=== PATIENT | male | born 1950 | race Caucasian/White ===

== ENCOUNTER 2020-03-04 09:17 | Outpatient (REF) | payer OTHER, SELFPAY | END 2020-03-04 09:18 | disposition home or self-care (01) | LOC: HO.LAB 09:17 | PROVIDERS: PCP Internal Medicine; Visit Provider Internal Medicine | DX: Z20.828 Contact with and (suspected) exposure to other viral communicable diseases (principal) | CPT/HCPCS: C9803; U0003 ==

== ENCOUNTER 2020-03-09 06:14 | Outpatient (REF) | payer OTHER, SELFPAY ==
[2020-03-09 12:13] LABS: Alanine Aminotransferase 20 U/L (0-40); Aspartate Amino Transferase 20 U/L (5-37); Cholesterol 218 mg/dL; HDL Cholesterol 41 mg/dL; LDL Cholesterol Calculated 121 mg/dl; Triglycerides 280 mg/dL
[2020-03-10 08:07] LABS: LDL Cholesterol Direct 143 mg/dL (<100)
== END 2020-03-09 06:15 | disposition home or self-care (01) ==
LOC: HO.HMGCLDS 06:14
PROVIDERS: PCP Internal Medicine; Visit Provider Internal Medicine
DX: E78.1 Pure hyperglyceridemia (principal)
CPT/HCPCS: 80061; 83721; 84450; 84460

== ENCOUNTER 2020-07-07 06:23 | Outpatient (REF) | payer OTHER, SELFPAY ==
[2020-07-07 11:56] LABS: Alanine Aminotransferase 22 U/L (0-40); Aspartate Amino Transferase 19 U/L (5-37); Cholesterol 201 mg/dL; HDL Cholesterol 46 mg/dL; LDL Cholesterol Calculated 98 mg/dl; Triglycerides 289 mg/dL
== END 2020-07-07 06:24 | disposition home or self-care (01) ==
LOC: HO.HMGCLDS 06:23
PROVIDERS: PCP Internal Medicine; Visit Provider Internal Medicine
DX: E78.2 Mixed hyperlipidemia (principal)
CPT/HCPCS: 36415; 80061; 84450; 84460

== ENCOUNTER 2020-09-29 11:39 | Emergency (ER) | payer OTHER, SELFPAY ==
--- NOTE | ~2020-09-29 | XR_ITS ---
EXAMINATION: XR CHEST CLINICAL INFORMATION: Fevers. Rule out pneumonia COMPARISON: CT chest 12/03/2008 TECHNIQUE: Frontal view of the chest was obtained. FINDINGS: The lungs are well-expanded and clear of acute pneumonic process. There is platelike atelectasis and right middle lobe and The heart size is mildly enlarged. Pulmonary vascularity is normal. No gross bony abnormality seen. XR/XR chest 1V IMPRESSION: Platelike atelectasis right middle lobe.
[2020-09-29 11:58] VITALS: BP 164/71; PULSE 86; RESP 24; TEMP 35.6; O2SAT 95; BMI 36.0
--- NOTE | 2020-09-29 15:21 | ECG_ITS ---
Test Reason : WEAKNESS Blood Pressure : / mmHG Vent. Rate : 078 BPM Atrial Rate : 078 BPM P-R Int : 136 ms QRS Dur : 082 ms QT Int : 370 ms P-R-T Axes : 062 036 048 degrees QTc Int : 421 ms Normal sinus rhythm Normal ECG When compared with ECG of 30-NOV-2006 17:04, No significant change was found Referred By: Clary Coronel Electronically Signed By:ERICA BARFIELD MD
--- NOTE | 2020-09-29 15:24 | ED_ITS ---
HPI - Weakness General Chief complaint: General Medical Stated complaint: Dehydration Time Seen by Provider: 09/29/20 15:20 Source: patient Mode of arrival: ambulatory Limitations: no limitations History of Present Illness HPI Narrative: 70 yo male with hx of recurrent kidney stones, COPD, HLD, bladder cancer with urostomy in place, solitary kidney comes in after being outside at a graduation all day on Monday that night developed body aches, nausea, vomiting, fever of 104, at this time fevers have stopped but he cannot tolerate PO and still has body aches worried he is dehydrated MD Complaint: generalized weakness (body aches) Onset (ago): day(s) (3) Duration: constant and progressively worsening Location: generalized Migration: none Severity: moderate Quality: aching Relieving factors: none Exacerbating factors: none Context: history of similar Associated symptoms: fever/chills, loss of appetite and myalgias Related Data Home Medications Medication Instructions Recorded Confirmed albuterol sulfate 90 mcg/actuation 2 puff INHALATION Q4-6H PRN 03/11/20 07/10/20 aerosol inhaler allopurinol 100 mg tablet 100 mg PO DAILY 03/11/20 07/10/20 budesonide-formoterol HFA 160 2 puff INHALATION BID 03/11/20 07/10/20 mcg-4.5 mcg/actuation aerosol inhaler cholecalciferol (vitamin D3) 50 50 mcg PO DAILY 03/11/20 07/10/20 mcg (2,000 unit) capsule famotidine 40 mg tablet 40 mg PO DAILY 03/11/20 07/10/20 flu vacc 2019-(65yr IM 03/11/20 07/10/20 up)-MF59C(PF) 60 mcg(15 mcgx4)/0.5 mL IM syringe tiotropium bromide 1.25 2 puff INHALATION DAILY 03/11/20 07/10/20 mcg/actuation mist for inhalation Previous Rx's Medication Instructions Recorded omeprazole 40 mg capsule,delayed 40 mg PO QAM PRN #30 cap 03/15/20 release carvedilol 6.25 mg tablet 6.25 mg PO BID 90 Days #180 tab 04/20/20 fenofibrate micronized 134 mg 134 mg PO DAILY #90 cap 05/27/20 capsule pitavastatin calcium 4 mg tablet 4 mg PO DAILY #90 tab 07/10/20 gabapentin 300 mg capsule See Rx Instructions PO .COMPLEX 08/18/20 #360 cap Allergies Allergy/AdvReac Type Severity Reaction Status Date / Time atorvastatin [Lipitor] AdvReac Unknown muscle pain Verified 07/10/20 08:41 pravastatin AdvReac Unknown muscle pain Verified 07/10/20 08:41 rosuvastatin [Crestor] AdvReac Unknown muscle pain Verified 07/10/20 08:41 simvastatin AdvReac Unknown muscle pain Verified 07/10/20 08:41 Review of Systems Review of Systems: Constitutional : No Weight loss, pos Fever, pos Chills, pos Fatigue, pos Malaise ENT/Mouth : No sore throat, No Rhinorrhea Eyes: No Eye Pain, No Swelling, No Redness Cardiovascular : No Chest Pain, No SOB, No Dyspnea on Exertion, No Orthopnea, No Edema, No Palpitations Respiratory : No Cough, No Sputum, No Wheezing Gastrointestinal : pos Nausea, pos Vomiting, No Diarrhea, No Constipation, No abdominal Pain, No Hematochezia, No Melena Genitourinary : No Dysuria, No Urinary Frequency, No Hematuria, Musculoskeletal : No joint pain, pos Myalgias, No Joint Swelling Skin : No Skin Lesions, No rash Neuro : No Weakness, No Numbness, No Dizziness, No Headache Psych : No Anxiety/Panic, No Depression Heme/Lymph: No Bruising, No Bleeding,No Lymphadenopathy Endocrine : No Polyuria, No Polydipsia All other systems reviewed and are negative [facility] Past Medical History Attestation statement: The following information was validated with the patient. Medical History Anxiety disorder Bladder cancer COPD (chronic obstructive pulmonary disease) Impaired fasting glucose Intolerance to BiPAP/CPAP Mixed dyslipidemia Obesity (BMI 30.0-34.9) Obstructive sleep apnea Plantar fasciitis Psoriasis Recurrent nephrolithiasis Statin intolerance Tubular adenoma of colon Surgical History History of hernia repair History of surgery on arm History of vagotomy Hx of cholecystectomy Family History Family History Father HTN (hypertension) Diabetes mellitus Dyslipidemia CAD (coronary artery disease) Aneurysm Mother CAD (coronary artery disease) Diabetes mellitus Dyslipidemia HTN (hypertension) COPD (chronic obstructive pulmonary disease) Brother History of heart attack Son No problems noted. Daughter No problems noted. Daughter No problems noted. Social History Social History (Updated 09/29/20 @ 15:47 by Clary Coronel DO) Alcohol intake: never Patient Tobacco Use Status: Never used Tobacco Use of substances other than those prescribed or required for medical reasons: No Advance Directives: No Advance Directives Information Provided: Yes Physical Exam Vital Signs: Vital Signs: Last Vital Signs Temp 96.1 F L 09/29/20 11:58 Pulse 86 09/29/20 11:58 Resp 24 H 09/29/20 11:58 BP 164/71 H 09/29/20 11:58 Pulse Ox 95 09/29/20 11:58 Body Mass Index 36.0 Appearance: Alert. Oriented X3. No acute distress. Eyes: Pupils equal, round and reactive to light. ENT: Pharynx normal. Neck: Normal inspection. Neck supple. CVS: Normal heart rate and rhythm. Pulses normal. Respiratory: No respiratory distress. Breath sounds normal. Abdomen: Soft and nontender. urostomy in place, clear yellow urine stoma is p/p/p Skin: Skin warm and dry. Normal skin color. Normal skin turgor. Extremities: No lower extremity edema. No calf ttp Neuro: Oriented X 3. No motor deficit. No sensory deficit. Course Course Course Narrative: signed out to Dr. Valencia pending workup MDM - Weakness MDM Narrative Medical decision making narrative: 70 yo male with hx of recurrent kidney stones, COPD, HLD, bladder cancer with urostomy in place, solitary kidney comes in after being outside at a graduation all day on Monday that night developed body aches, nausea, vomiting, fever of 104, at this time fevers have stopped but he cannot tolerate PO and still has body aches worried he is dehydrated at this time labs, UA, IVF x 2L , COVID test, nausea medications, CXR for pneumonia, dispo per results and findings, possible infection vs dehydration Lab Data Result diagrams: 09/29/20 15:49 09/29/20 15:49 Labs: Lab Results 09/29/20 09/29/20 09/29/20 Range/Units 15:49 15:49 15:49 WBC 5.0 (4.8-10.8) X10*3/uL RBC 4.53 L (4.60-5.80) X10*6/uL Hgb 13.5 L (14.0-18.0) g/dl Hct 41.6 L (42-52) % MCV 91.8 (80-98) fL MCH 29.8 (27.0-33.0) pg MCHC 32.5 (31.0-36.0) g/dl RDW 13.2 (11.0-16.0) % Plt Count 176 (160-400) X10*3/uL MPV 9.5 (9.4-12.4) fL Immature Gran % (Auto) 0.4 (0.0-0.4) % Neut % (Auto) 71.0 (45-73) % Lymph % (Auto) 15.5 L (20-40) % [place] % (Auto) 12.1 H (2-11) % Eos % (Auto) 0.8 (0-4) % Baso % (Auto) 0.2 (0-2) % Lymph # (Auto) 0.8 L (1.2-4.9) X10*3/uL [place] # (Auto) 0.6 (0.1-1.2) X10*3/uL Eos # (Auto) 0.0 (0.0-0.4) X10*3/uL Baso # (Auto) 0.0 (0.0-0.2) X10*3/uL Abs Immat Gran (auto) 0.02 (0.00-0.03) X10*3/uL Absolute Neuts (auto) 3.5 (2.0-8.3) X10*3/uL Absolute Nucleated RBC 0.000 (0.0-0.012) X10*3/uL Nucleated RBC % (auto) 0.0 (0.0-0.2) /100WBC Hold Blue Top SEE NOTE Magnesium Cancelled Total Bilirubin Cancelled Direct Bilirubin Cancelled AST Cancelled ALT Cancelled Alkaline Phosphatase Cancelled Total Protein Cancelled Albumin Cancelled Lipase Cancelled ECG Data Attestation: I personally reviewed and interpreted this ECG as follows: ECG interpretation date: 09/29/20 ECG interpretation time: 16:07 Interpretation: Rate: 78 Rhythm: NSR [place]: normal Normal P waves. Normal KARISSA. Normal QRS complex. ST T wave : normal no HELEN qTC: normal prior studies: no acute ischemia The study has been interpreted contemporaneously by me. . Discharge Plan Discharge Clinical Impression: Weakness Prescriptions: No Action omeprazole 40 mg capsule,delayed release(DR/EC) 40 mg PO QAM PRN (Reason: for heartburn) Qty: 30 RF: 6 carvedilol 6.25 mg tablet 6.25 mg PO BID 90 Days Qty: 180 RF: 0 fenofibrate micronized 134 mg capsule 134 mg PO DAILY Qty: 90 RF: 0 gabapentin 300 mg capsule See Rx Instructions PO .COMPLEX Qty: 360 RF: 4 allopurinol 100 mg tablet 100 mg PO DAILY RF: 0 famotidine 40 mg tablet 40 mg PO DAILY RF: 0 albuterol sulfate [ProAir HFA] 90 mcg/actuation HFA aerosol inhaler 2 puff inhalation Q4-6H PRNRF: 0 budesonide-formoterol [Symbicort] 160-4.5 mcg/actuation HFA aerosol inhaler 2 puff inhalation BID RF: 0 cholecalciferol (vitamin D3) 50 mcg (2,000 unit) capsule 50 mcg PO DAILY RF: 0 Spiriva Respimat 1.25 mcg/actuation mist 2 puff inhalation DAILY RF: 0 Fluad Quad 2020-21(65y up)(PF) 60 mcg (15 mcg x 4)/0.5 mL syringe IM RF: 0 Livalo 4 mg tablet 4 mg PO DAILY Qty: 90 RF: 3
[2020-09-29] MEDS: 0.9 % Sodium Chloride 1,000 ML 999 ML IVCONT ×2 (15:52→15:59)
[2020-09-29] MEDS: ondansetron HCL 4 MG/2 ML VIAL IVPUSH (15:58)
[2020-09-29 16:00] LABS: MANUAL DIFF FLAG NO
[2020-09-29 16:04] LABS: Basophils Percent Auto 0.2 % (0-2); Eosinophils Percent Auto 0.8 % (0-4); Hematocrit 41.6 % (42-52); Hemoglobin 13.5 g/dl (14.0-18.0); Imm Gran Abs Auto 0.02 X10*3/uL (0.00-0.03); Imm Gran Pct Auto 0.4 % (0.0-0.4); Lymphocytes Absolute Auto 0.8 X10*3/uL (1.2-4.9); Lymphocytes Percent Auto 15.5 % (20-40); Mean Corpuscular HGB Conc 32.5 g/dl (31.0-36.0); Mean Corpuscular Hemoglobin 29.8 pg (27.0-33.0); Mean Corpuscular Volume 91.8 fL (80-98); Mean Platelet Volume 9.5 fL (9.4-12.4); Monocytes Absolute Auto 0.6 X10*3/uL (0.1-1.2); Monocytes Percent Auto 12.1 % (2-11); Neutrophils Absolute Auto 3.5 X10*3/uL (2.0-8.3); Platelet Count 176 X10*3/uL (160-400); Red Blood Count 4.53 X10*6/uL (4.60-5.80); Red Cell Distribution Width 13.2 % (11.0-16.0)
[2020-09-29 16:25] LABS: COVID-19 Test Negative (Negative); IDNOW Serial# 08D9AD1C
[2020-09-29 16:32] LABS: Alanine Aminotransferase 27 U/L (0-40); Albumin Level 4.1 g/dL (3.5-5.0); Alkaline Phosphatase 65 U/L (39-117); Anion Gap 13 (12-20); Aspartate Amino Transferase 24 U/L (5-37); Bilirubin Direct 0.2 mg/dL (0.0-0.5); Bilirubin Total 0.7 mg/dL (0.0-1.0); Blood Urea Nitrogen 22 mg/dL (9-16); Calcium 9.1 mg/dL (8.4-10.2); Carbon Dioxide 26 mmol/L (22-29); Chloride 105 mmol/L (96-108); Creatinine Clr Calc Pharmacy 40.5; Estimated Glomerular Filt Rate 34; Glucose Random 104 mg/dL (60-115); Lipase 17 U/L (8-78); Magnesium 2.4 mg/dL (1.6-2.6); Potassium 4.6 mmol/L (3.3-5.1); Sodium 139 mmol/L (135-145); Total Protein 6.8 g/dL (6.5-8.0)
--- NOTE | 2020-09-29 16:48 | PC.NURSE ---
urostomy emptied for clean sample
[2020-09-29 17:52] LABS: Glucose Urine UA NEG (NEG); Leukocyte Esterase Urine 1+ (NEG); Nitrite Urine POS (NEG); Specific Gravity - Urine 1.015 (1.005-1.025); UACC Culture Trigger YES; Urine Blood 3+ (NEG); Urine Ketones NEG (NEG); Urine Protein 2+ MG/DL (NEG-TRACE)
[2020-09-29 18:09] LABS: Appearance Urine TURBID; Color Urine YELLOW; RBC Urine 30-49 /HPF (0)
[2020-09-29 18:10] LABS: Amorphous Sediment Urine 1+ /LPF; Bacteria Urine 1+ /LPF; WBC Clumps Urine NOTED
[2020-09-29] MEDS: cefTRIAXone sodium 1 GM in 0.9 % Sodium Chloride 50 ML IV (19:22)
== END 2020-09-29 20:03 | disposition home or self-care (01) ==
PROVIDERS: Emergency Medicine; Emergency Provider Internal Medicine
DX: R53.1 Weakness (principal); J44.9 Chronic obstructive pulmonary disease, unspecified; Z85.51 Personal history of malignant neoplasm of bladder; Z87.442 Personal history of urinary calculi; Z20.822 Contact with and (suspected) exposure to COVID-19
CPT/HCPCS: 36415; 71045; 80048; 80076; 81001; 81003; 82550; 83605; 83690; 83735; 85025; 87040; 87086; 87635; 93005; 96361; 96365; 96374; 99284; J0696; J2405

== ENCOUNTER 2021-01-13 06:00 | Outpatient (REF) | payer OTHER, SELFPAY ==
[2021-01-13 11:59] LABS: Alanine Aminotransferase 33 U/L (0-40); Aspartate Amino Transferase 25 U/L (5-37); Cholesterol 213 mg/dL; HDL Cholesterol 50 mg/dL; LDL Cholesterol Calculated 121 mg/dl; Triglycerides 210 mg/dL
== END 2021-01-13 06:01 | disposition home or self-care (01) ==
LOC: HO.HMGCLDS 06:00
PROVIDERS: PCP Internal Medicine; Visit Provider Internal Medicine
DX: E78.2 Mixed hyperlipidemia (principal)
CPT/HCPCS: 36415; 80061; 84450; 84460

== ENCOUNTER 2021-07-16 06:00 | Outpatient (REF) | payer MEDICARE, SELFPAY ==
[2021-07-16 11:51] LABS: Alanine Aminotransferase 26 U/L (0-40); Aspartate Amino Transferase 20 U/L (5-37); Cholesterol 195 mg/dL; HDL Cholesterol 38 mg/dL; LDL Cholesterol Calculated 122 mg/dl; Triglycerides 178 mg/dL
== END 2021-07-16 06:01 | disposition home or self-care (01) ==
LOC: HO.HMGCLDS 06:00
PROVIDERS: Visit Provider Internal Medicine
DX: E78.2 Mixed hyperlipidemia (principal)
CPT/HCPCS: 36415; 80061; 84450; 84460

== ENCOUNTER 2021-11-01 09:13 | Outpatient (REF) | payer MEDICARE, SELFPAY ==
--- NOTE | ~2021-11-01 | XR_ITS ---
EXAMINATION: XR FOOT, RIGHT CLINICAL INFORMATION: Contusion of the right foot COMPARISON: None TECHNIQUE: AP, lateral, and oblique views of the right foot. FINDINGS: There is a nondisplaced fracture base of fifth metatarsal. No additional bony abnormality seen. The soft tissues are normal. The ankle mortise and subtalar joints are normal. There is a small calcaneal heel spur. There is mild dorsal soft tissue swelling. XR/XR foot RT min 3V IMPRESSION: Nondisplaced fracture base of fifth metatarsal. No visible acute fracture or dislocation seen.
== END 2021-11-01 09:14 | disposition home or self-care (01) ==
LOC: HO.HMGCX 09:13
PROVIDERS: Visit Provider Internal Medicine
DX: S90.31XA Contusion of right foot, initial encounter (principal)
CPT/HCPCS: 73630

== ENCOUNTER → 2021-11-10 08:21 | Outpatient (BNVA) | payer MEDICARE, SELFPAY | PROVIDERS: PCP Internal Medicine; Visit Provider Physician Assistant | DX: S92.351A Displaced fracture of fifth metatarsal bone, right foot, initial encounter for closed fracture (principal) | CPT/HCPCS: 99202 ==

== ENCOUNTER 2021-12-24 07:18 | Outpatient (REF) | payer MEDICARE, SELFPAY ==
--- NOTE | ~2021-12-24 | XR_ITS ---
EXAMINATION: XR FOOT, RIGHT CLINICAL INFORMATION: Fracture COMPARISON: None TECHNIQUE: AP, lateral, and oblique views of the right foot. FINDINGS: There is a minimally displaced fracture of the base of the fifth metatarsal bone. Fracture line is still seen. There is minimal bony callus formation. Alignment appears unchanged from October 2021 exam. No other fracture is seen. There is arthritis at the first MTP joint. There is a plantar calcaneal spur. There is soft tissue swelling of the foot adjacent to the fracture. XR/XR foot RT min 3V IMPRESSION: No appreciable change in the minimally displaced fracture of the base of the fifth metatarsal bone from October 2021 exam.
== END 2021-12-24 07:19 | disposition home or self-care (01) ==
LOC: HO.HOSX 07:18
PROVIDERS: Visit Provider Physician Assistant
DX: M79.671 Pain in right foot (principal)
CPT/HCPCS: 73630

== ENCOUNTER 2022-02-09 07:06 | Outpatient (REF) | payer MEDICARE, SELFPAY ==
[2022-02-09 11:50] LABS: Alanine Aminotransferase 18 U/L (0-40); Aspartate Amino Transferase 20 U/L (5-37); Cholesterol 221 mg/dL; HDL Cholesterol 43 mg/dL; LDL Cholesterol Calculated 139 mg/dl; Triglycerides 195 mg/dL
== END 2022-02-09 07:07 | disposition home or self-care (01) ==
LOC: HO.HMGCLDS 07:06
PROVIDERS: PCP Internal Medicine; Visit Provider Internal Medicine
DX: E78.2 Mixed hyperlipidemia (principal)
CPT/HCPCS: 36415; 80061; 84450; 84460

== ENCOUNTER 2022-02-18 07:27 | Outpatient (REF) | payer MEDICARE, SELFPAY ==
--- NOTE | ~2022-02-18 | XR_ITS ---
EXAMINATION: XR FOOT, RIGHT CLINICAL INFORMATION: Pain in right foot COMPARISON: 12/24/2021 TECHNIQUE: AP, lateral, and oblique views of the right foot. FINDINGS: Fracture lines in the minimally displaced base of the fifth metatarsal fracture still visualized with some mild callus formation. Alignment is unchanged. Degenerative changes in the first MTP joint. There is a small plantar calcaneal spur. No joint effusion. XR/XR foot RT min 3V IMPRESSION: 1. Healing minimally displaced fracture at the base of the fifth metatarsal. 2. Plantar calcaneal spur.
== END 2022-02-18 07:28 | disposition home or self-care (01) ==
LOC: HO.HOSX 07:27
PROVIDERS: Visit Provider Physician Assistant
DX: S99.191D Other physeal fracture of right metatarsal, subsequent encounter for fracture with routine healing (principal)
CPT/HCPCS: 73630; 99212

== ENCOUNTER 2022-05-17 08:25 | Outpatient (REF) | payer MEDICARE, SELFPAY ==
--- NOTE | ~2022-05-17 | XR_ITS ---
EXAMINATION: XR CERVICAL SPINE CLINICAL INFORMATION: Neck pain. COMPARISON: None TECHNIQUE: 4 views of the cervical spine were obtained. FINDINGS: There is normal cervical lordosis and spinal alignment. Mild anterior osteophyte formation is seen from C4-5 to C6-7. The vertebral bodies are intact. The intervertebral disc spaces are unremarkable. The odontoid process is intact. The soft tissues are unremarkable. XR/XR cervical spine 3V IMPRESSION: Significant cervical spine abnormality.
[2022-05-17 11:52] LABS: Hematocrit 39.5 % (42.0-52.0); Hemoglobin 13.3 g/dl (14.0-18.0); Mean Corpuscular HGB Conc 33.7 g/dl (31.0-36.0); Mean Corpuscular Hemoglobin 30.5 pg (27.0-33.0); Mean Corpuscular Volume 90.6 fL (80.0-98.0); Mean Platelet Volume 10.4 fL (9.4-12.4); Platelet Count 228 X10*3/uL (160-400); Red Blood Count 4.36 X10*6/uL (4.60-5.80); Red Cell Distribution Width 12.7 % (11.0-16.0); White Blood Count 4.3 X10*3/uL (4.8-10.8)
[2022-05-17 12:29] LABS: Erythrocyte Sedimentation Rate 10 MM/HR (0-15)
[2022-05-17 12:35] LABS: Alanine Aminotransferase 18 U/L (0-40); Albumin Level 4.4 g/dL (3.5-5.0); Alkaline Phosphatase 60 U/L (39-117); Anion Gap 15 (12-20); Aspartate Amino Transferase 19 U/L (5-37); Bilirubin Total 0.4 mg/dL (0.0-1.0); Blood Urea Nitrogen 34 mg/dL (9-16); Calcium 9.2 mg/dL (8.4-10.2); Carbon Dioxide 24 mmol/L (22-29); Chloride 107 mmol/L (96-108); Estimated Glomerular Filt Rate 31; Glucose Random 116 mg/dL (60-115); Potassium 4.6 mmol/L (3.3-5.1); Sodium 141 mmol/L (135-145)
[2022-05-17 12:41] LABS: Bilirubin Direct < 0.2 mg/dL (0.0-0.5)
== END 2022-05-17 08:26 | disposition home or self-care (01) ==
LOC: HO.HMGCX 08:25
PROVIDERS: PCP Internal Medicine; Visit Provider Internal Medicine
DX: M54.2 Cervicalgia (principal); M31.6 Other giant cell arteritis
CPT/HCPCS: 36415; 72040; 80048; 80076; 85027; 85652

== ENCOUNTER 2022-09-20 06:01 | Outpatient (REF) | payer MEDICARE, SELFPAY ==
[2022-09-20 12:12] LABS: Alanine Aminotransferase 23 U/L (0-40); Aspartate Amino Transferase 16 U/L (5-37); Cholesterol 181 mg/dL; Glucose Fasting 106 mg/dL (60-99); HDL Cholesterol 40 mg/dL; LDL Cholesterol Calculated 103 mg/dl; Triglycerides 193 mg/dL
== END 2022-09-20 06:02 | disposition home or self-care (01) ==
LOC: HO.HMGCLDS 06:01
PROVIDERS: PCP Internal Medicine; Visit Provider Internal Medicine
DX: E78.2 Mixed hyperlipidemia (principal); R73.01 Impaired fasting glucose
CPT/HCPCS: 36415; 80061; 82947; 84450; 84460

== ENCOUNTER 2022-09-26 06:02 | Outpatient (REF) | payer MEDICARE, SELFPAY ==
[2022-09-26 11:29] LABS: Estimated Average Glucose 114 mg/dL; Hemoglobin A1c % 5.6 %
== END 2022-09-26 06:03 | disposition home or self-care (01) ==
LOC: HO.HMGCLDS 06:02
PROVIDERS: PCP Internal Medicine; Visit Provider Internal Medicine
DX: R73.01 Impaired fasting glucose (principal); Z78.9 Other specified health status
CPT/HCPCS: 36415; 83036

== ENCOUNTER 2022-09-27 08:35 | Outpatient (AMB) | payer MEDICARE, SELFPAY ==
--- NOTE | 2022-09-27 08:42 | AM.OFFVISMDC ---
Intake Vital Signs 09/27/22 08:43 Height 5 ft 7 in Weight 286 lb BMI 44.8 Intake Visit Reasons: ffup lipids, ifg after labs done Allergies atorvastatin [Lipitor] Adverse Reaction (Unknown, Verified 05/17/22 08:11) muscle pain pravastatin Adverse Reaction (Unknown, Verified 05/17/22 08:11) muscle pain rosuvastatin [Crestor] Adverse Reaction (Unknown, Verified 05/17/22 08:11) muscle pain simvastatin Adverse Reaction (Unknown, Verified 05/17/22 08:11) muscle pain aspirin Adverse Reaction (Verified 05/17/22 08:11) Abdominal Pain ibuprofen Adverse Reaction (Verified 05/17/22 08:11) Abdominal Pain Sulfa (Sulfonamide Antibiotics) Adverse Reaction (Verified 05/17/22 08:11) stomach ache PFSH Medical History (Updated 05/31/22 @ 03:01 by Stephanie Vega MD) Absent kidney Anemia in chronic kidney disease Anxiety disorder Bladder cancer COPD (chronic obstructive pulmonary disease) History of heartburn Hx of bladder cancer Impaired fasting glucose Intolerance to BiPAP/CPAP Mixed dyslipidemia Obesity (BMI 30.0-34.9) Obstructive sleep apnea Plantar fasciitis Polyneuropathy Psoriasis Recurrent nephrolithiasis Stage 3b chronic kidney disease Statin intolerance Tubular adenoma of colon Surgical History History of hernia repair History of surgery on arm History of urostomy History of vagotomy Hx of cholecystectomy Family History Father HTN (hypertension) Diabetes mellitus Dyslipidemia CAD (coronary artery disease) Aneurysm Mother CAD (coronary artery disease) Diabetes mellitus Dyslipidemia HTN (hypertension) COPD (chronic obstructive pulmonary disease) Brother History of heart attack Son No problems noted. Daughter No problems noted. Daughter No problems noted. Social History Housing: House Alcohol intake: never Patient Tobacco Use Status: Never used Tobacco e-Cigarette/Vaping Use: Never Used service: Yes Current occupational status: retired Cognitive needs: No Hearing needs: No Vision needs: Yes Coding Diagnoses
[2022-09-27 08:43] VITALS: BP 128/82; PULSE 56; O2SAT 96; BMI 44.8
--- NOTE | 2022-09-27 08:45 | A.OFFPC_ITS ---
<Statement entered by Stephanie Vega MD - 05/26/25 00:10> This note has been administratively?closed. Vital Signs 09/27/22 08:43 Height 5 ft 7 in Weight 286 lb BMI 44.8 BP 128/82 Blood Pressure Location Rt brachial Position Sitting Pulse 56 Pulse Source Pulse Oximeter Pulse Oximetry (%) 96 Oxygen Delivery Method Room Air Intake Visit Reasons: ffup lipids, ifg after labs done Intake Note: Patient here for follow up on labs. Allergies codeine Allergy (Verified 04/22/25 13:20) Unknown nitrofurantoin (From Macrobid) Allergy (Verified 04/22/25 13:20) Unknown atorvastatin (Lipitor) Adverse Reaction (Unknown, Verified 04/22/25 13:20) muscle pain pravastatin Adverse Reaction (Unknown, Verified 04/22/25 13:20) muscle pain rosuvastatin (Crestor) Adverse Reaction (Unknown, Verified 04/22/25 13:20) muscle pain simvastatin Adverse Reaction (Unknown, Verified 04/22/25 13:20) muscle pain aspirin Adverse Reaction (Verified 04/22/25 13:20) Abdominal Pain ibuprofen Adverse Reaction (Verified 04/22/25 13:20) Abdominal Pain Sulfa (Sulfonamide Antibiotics) Adverse Reaction (Verified 04/22/25 13:20) stomach ache Medication List - Last Reconciled 09/27/22 by Stephanie Vega MD albuterol sulfate 90 mcg/actuation (ProAir HFA) 2 puffs inhalation Q4-6H PRN allopurinol 100 mg PO DAILY budesonide-formoterol 160-4.5 mcg/actuation (Symbicort) 2 puffs inhalation BID carvedilol 12.5 mg PO BID cholecalciferol (vitamin D3) 50 mcg PO DAILY cranberry fruit concentrate (Cran-Max) 500 mg PO BID famotidine 40 mg PO DAILY fenofibrate micronized 134 mg PO DAILY gabapentin Take 2 capsules in a.m., 1 capsule at noon and 1 capsule in p.m. PO; omeprazole 40 mg PO DAILY pitavastatin calcium (Livalo) 4 mg PO DAILY tiotropium bromide 2.5 mcg/actuation (Spiriva Respimat) 2 puffs inhalation DAILY Tobacco use date assessed: 09/27/22 Fall risk assessment: No Falls in past year Last assessed Fall Risk: 09/27/22 HPI ffup lipids, ifg after labs done HPI Details 72-year-old male with dyslipidemia, and prediabetes, here today for follow-up. Has been compliant to his medications and has been trying to follow recommended diet, recent fasting labs showed hemoglobin A1c within normal limits, and fasting lipids showed LDL cholesterol at 103 mg/dL. Been trying to follow recommended diet, but has not been exercising regularly. Patient states that he has been feeling very tired lately, sleeps throughout the night and takes naps up to 4-5 hours every day. He has been diagnosed to have obstructive sleep apnea, intolerant of CPAP or BiPAP in the past, patient however resistant to get re-evaluated for his obstructive sleep apnea. Also complaining of pain in his right shoulder mainly on the anterior aspect, which has been present now for several months and progressively getting worse. Unable to lift right arm above shoulder level and unable to lift anything more than 5 lb with his right hand due to pain. Laboratory Tests 02/09/22 09/20/22 09/26/22 07:10 06:07 06:10 Fasting Glucose 106 H Estimat Average Gl ucose 114 Hemoglobin A1c % 5.6 AST 20 16 ALT 18 23 Triglycerides 195 193 Cholesterol 221 181 LDL Cholesterol, C alc 139 103 HDL Cholesterol 43 40 PFSH Medical History History of kidney stones Bowel obstruction Pulmonary fibrosis Elevated cholesterol Neuropathy HTN (hypertension) Chronic right shoulder pain Excessive sleepiness Fatigue History of heartburn Hx of bladder cancer Polyneuropathy Stage 3b chronic kidney disease Absent kidney Anemia in chronic kidney disease Obesity (BMI 30.0-34.9) Impaired fasting glucose COPD (chronic obstructive pulmonary disease) Plantar fasciitis Recurrent nephrolithiasis Intolerance to BiPAP/CPAP Obstructive sleep apnea Psoriasis Tubular adenoma of colon Anxiety disorder Statin intolerance Mixed dyslipidemia Surgical History Hx of cataract surgery History of nephrectomy, right Hx of shoulder surgery Hx of elbow surgery History of urostomy History of vagotomy History of hernia repair History of surgery on arm Hx of cholecystectomy Family History Father HTN (hypertension) Diabetes mellitus Dyslipidemia CAD (coronary artery disease) Aneurysm Mother CAD (coronary artery disease) Diabetes mellitus Dyslipidemia HTN (hypertension) COPD (chronic obstructive pulmonary disease) Brother History of heart attack Son No problems noted. Daughter No problems noted. Daughter No problems noted. Social History Housing: House Are you a primary anesthesiologist and critical care to a significant other at home: No Do you presently have visiting nurse or other home services: No Alcohol intake: never Patient Tobacco Use Status: Never used Tobacco e-Cigarette/Vaping Use: Never Used Second Hand Smoke Exposure: No service: Yes Current occupational status: retired Current occupation: right hand Cognitive needs: No Hearing needs: No Vision needs: Yes Questionnaire PHQ-9 Over the last 2 weeks, how often have you been bothered by any of the following problems? Depression Screening Interpretation: Negative Source: Developed by Drs. Joaquin Hansen, Lillian Cullen, Melquiades Gomez and colleagues, with an educational chela from [email or web address]. Thrive Questionnaire Date Thrive assessed: 07/20/21 ALVERTO-7 AMB Questionnaire ALVERTO-7 Date ALVERTO - 7 assessed: 07/20/21 Source: Developed by Drs. Joaquin Hansen, Lillian Cullen, Melquiades Gomez and colleagues, with an educational chela from [email or web address]. Review of Systems Const Reports as per HPI, Denies body aches, Denies chills, Denies fever(s), Denies headache(s) and Denies weakness Eyes Denies change in vision, Denies eye discharge and Denies itchy eyes ENT Denies dizziness, Denies headache(s), Denies nasal congestion, Denies nasal discharge and Denies sore throat Card Denies chest pain, Denies lightheadedness, Denies palpitations and Denies dyspnea Resp Denies chest congestion, Denies cough, Denies dyspnea and Denies wheezing GI Denies abdominal pain, Denies change in bowel habits and Denies heartburn Musc Details: Occasional cramping in toes at night Reports as per HPI Skin/Breast Denies lesions and Denies rash Neuro Denies dizziness, Denies headache(s) and Denies weakness Psych Reports no additional complaints Endo Denies polydipsia, Denies polyuria and Denies palpitations [place]/Lymph Denies easy bruising Aller/Immun Denies itchy eyes, Denies seasonal rhinorrhea and Denies wheezing Physical exam (Primary Care) Vital Signs: Last Vital Signs Pulse 56 09/27/22 08:43 BP 128/82 09/27/22 08:43 Pulse Ox 96 09/27/22 08:43 Oxygen Delivery Method Room Air 09/27/22 08:43 BMI result Body Mass Index 44.8 BMI Assessment/Plan discussion: High BMI High, discussed plan: lifestyle, weight reduction, dietary and physical activity Tobacco/Smoking Status: Tobacco use Status Tobacco use date assessed 09/27/22 09/27/22 08:47 Patient Tobacco Use Status Never used Tobacco 09/27/22 08:47 e-Cigarette/Vaping Use Never Used 09/27/22 08:47 Depression Screening Interpretation: Negative Thrive Assessment: Date of Thrive Assessment Date Thrive assessed 07/20/21 09/27/22 08:47 Const General: comfortable, no acute distress and alert Orientation/consciousness: patient oriented x3 HENMT Mouth: Normal oral and palatal mucosa present, oropharynx normal and moist mucous membranes Eyes General: appearance normal, both eyes and all related structures Neck Neck: Yes full ROM, Yes no lymphadenopathy and Yes supple Resp Effort & Inspection: normal respiratory effort and able to speak in complete sentences Auscultation: clear to auscultation bilaterally Cardio Rate: regular rate Rhythm: regular rhythm Heart sounds: S1 normal heart sound present and S2 normal heart sound present GI Palpation (GI): Soft to palpation, nontender and no masses Auscultation: normal bowel sounds Other: Urostomy bag in place, draining clear yellow urine General: Yes no CVA tenderness Back/Spine/Pelvis Back: no CVA tenderness and No back tenderness Skin General skin exam: no rashes or lesions noted Neuro General: patient oriented x3, gait normal, tone normal, moves all extremities, Normal light touch and pain sensation and no focal motor deficits Extrem Other: Unable to abduct right arm more than 90 degrees, and unable to cross right arm across chest due to pain and stiffness, tenderness on palpation over right AC joint, no gross bone deformity or joint swelling seen, positive impingement sign on right Psych Appearance: grossly normal and well kempt Mental Status: mental status grossly normal Speech and movement: Normal speech and movement present Affect: normal affect Attitude: cooperative Thought process: Normal thought process present Immunizations pneumoc 20-zia conj-dip cr(PF) 0.5 mL IM syringe Performing Provider: Stephanie Vega MD Per[place] [facility] Administered by: Stephen Carbajal CMA on 09/27/22 09:52 Dose Route Admin Location Dispensed Lot Number Expiration Date NDC Reconditioner 0.5 mL IM Left Deltoid 0.5 mL [id number] 12/24/23 8926-5927-14 [employer] Total Dispensed Waste 0.5 mL 0 % VIS Given Date VIS Provided VIS Publication Date 09/27/22 Single Vaccine 21 Eligibility Eligibility Date Funding Source Not VFC Eligible 09/27/22 Private Coding Level of Care Code Admin Sign Off/No Billing Diagnoses Fatigue R53.83 Obstructive sleep apnea G47.33 Chronic right shoulder pain M25.511; G89.29 Excessive sleepiness G47.10 Anemia in chronic kidney disease N18.9; D63.1 Obesity (BMI 30.0-34.9) E66.9 Impaired fasting glucose R73.01 Intolerance to BiPAP/CPAP Mixed dyslipidemia E78.2 Need for pneumococcal 20-valent conjugate vaccination Z23
== END 2022-09-27 10:28 | disposition home or self-care (01) ==
LOC: HO.HMGC 08:35
PROVIDERS: PCP Internal Medicine; Visit Provider Internal Medicine
DX: R53.83 Other fatigue (principal); G47.33 Obstructive sleep apnea (adult) (pediatric); M25.511 Pain in right shoulder; G89.29 Other chronic pain; G47.10 Hypersomnia, unspecified; N18.9 Chronic kidney disease, unspecified; D63.1 Anemia in chronic kidney disease; E66.9 Obesity, unspecified; R73.01 Impaired fasting glucose; E78.2 Mixed hyperlipidemia; Z23 Encounter for immunization
CPT/HCPCS: 99499

== ENCOUNTER 2022-09-27 09:51 | Outpatient (REF) | payer MEDICARE, SELFPAY ==
--- NOTE | ~2022-09-27 | XR_ITS ---
EXAMINATION: XR SHOULDER, RIGHT CLINICAL INFORMATION: Reason for Exam M25.511 - Pain in right shoulder COMPARISON: None TECHNIQUE: Four views of the shoulder. FINDINGS: No acute fracture or dislocation. Mild degenerative changes of the shoulder with subchondral cystic change in the humeral head. Soft tissues are unremarkable. XR/XR shoulder RT min 2V IMPRESSION: * Mild degenerative changes of the shoulder.
[2022-09-27 11:14] LABS: MANUAL DIFF FLAG NO
[2022-09-27 11:37] LABS: Basophils Absolute Auto 0.1 X10*3/uL (0.0-0.2); Basophils Percent Auto 1.1 % (0-2); Eosinophils Absolute Auto 0.3 X10*3/uL (0.0-0.4); Eosinophils Percent Auto 7.3 % (0-4); Hematocrit 39.4 % (42.0-52.0); Hemoglobin 12.7 g/dl (14.0-18.0); Imm Gran Abs Auto 0.02 X10*3/uL (0.00-0.03); Imm Gran Pct Auto 0.4 % (0.0-0.4); Lymphocytes Absolute Auto 1.4 X10*3/uL (1.2-4.9); Lymphocytes Percent Auto 31.4 % (20-40); Mean Corpuscular HGB Conc 32.2 g/dl (31.0-36.0); Mean Corpuscular Hemoglobin 30.2 pg (27.0-33.0); Mean Corpuscular Volume 93.6 fL (80.0-98.0); Mean Platelet Volume 10.2 fL (9.4-12.4); Monocytes Absolute Auto 0.4 X10*3/uL (0.1-1.2); Monocytes Percent Auto 7.7 % (2-11); Neutrophils Absolute Auto 2.4 x10*3/uL (2.0-8.3); Neutrophils Percent Auto 52.1 % (45-73); Platelet Count 302 X10*3/uL (160-400); Red Blood Count 4.21 X10*6/uL (4.60-5.80); Red Cell Distribution Width 12.5 % (11.0-16.0); White Blood Count 4.5 X10*3/uL (4.8-10.8)
[2022-09-27 11:59] LABS: Iron 86 mcg/dL (45-160); Percent Iron Saturation 25 % (15-50); Total Iron Binding Capacity 344 mcg/dL (228-428); Unsaturated Iron Binding 258 ug/dL
[2022-09-27 12:30] LABS: Folate 6.2 ng/mL (> or = 4.0); TSH reflex Free T4 1.04 uIU/mL (0.32-4.0); Vitamin B12 416 pg/mL (200-900)
== END 2022-09-27 09:52 | disposition home or self-care (01) ==
LOC: HO.HMGCX 09:51
PROVIDERS: PCP Internal Medicine; Visit Provider Internal Medicine
DX: M25.511 Pain in right shoulder (principal); G47.10 Hypersomnia, unspecified; G47.33 Obstructive sleep apnea (adult) (pediatric); R53.83 Other fatigue; G89.29 Other chronic pain
CPT/HCPCS: 36415; 73030; 82607; 82746; 83540; 84443; 85025

== ENCOUNTER 2022-11-07 08:17 | Outpatient (AMB) | payer MEDICARE, SELFPAY ==
[2022-11-07 08:25] VITALS: BMI 44.9
--- NOTE | 2022-11-07 08:25 | A.OFFVIS_ITS ---
Intake Vital Signs 11/07/22 08:25 Height 5 ft 7 in Weight 287 lb BMI 44.9 Intake Visit Reasons: Newprob-Pain in right shoulder Intake Note: Dajuan 72 yr old male who is right hand hand dominant, presents today for a new problem visit with complaints of his right shoulder. States his pain started about 3months ago with no injury he can recall. Currently his pain has worsen and is limited with his ROM. Describes pain as a sharp radiating pain down his arm and at times make his hand shake due to pain. Patient states his pain increases after prolong use of shoulder. Hx of right shoulder sx with Dr. Martel about 20 yrs ago. Allergies atorvastatin [Lipitor] Adverse Reaction (Unknown, Verified 11/07/22 08:33) muscle pain pravastatin Adverse Reaction (Unknown, Verified 11/07/22 08:33) muscle pain rosuvastatin [Crestor] Adverse Reaction (Unknown, Verified 11/07/22 08:33) muscle pain simvastatin Adverse Reaction (Unknown, Verified 11/07/22 08:33) muscle pain aspirin Adverse Reaction (Verified 11/07/22 08:33) Abdominal Pain ibuprofen Adverse Reaction (Verified 11/07/22 08:33) Abdominal Pain Sulfa (Sulfonamide Antibiotics) Adverse Reaction (Verified 11/07/22 08:33) stomach ache Medication List - Last Reconciled 11/07/22 by Cortez Valenzuela PA-C albuterol sulfate 90 mcg/actuation (ProAir HFA) 2 puffs inhalation Q4-6H PRN allopurinol 100 mg PO DAILY budesonide-formoterol 160-4.5 mcg/actuation (Symbicort) 2 puffs inhalation BID carvedilol 12.5 mg PO BID cholecalciferol (vitamin D3) 50 mcg PO DAILY cranberry fruit concentrate (Cran-Max) 500 mg PO BID famotidine 40 mg PO DAILY fenofibrate micronized 134 mg PO DAILY gabapentin Take 2 capsules in a.m., 1 capsule at noon and 1 capsule in p.m. PO; omeprazole 40 mg PO DAILY pitavastatin calcium (Livalo) 4 mg PO DAILY tiotropium bromide 2.5 mcg/actuation (Spiriva Respimat) 2 puffs inhalation DAILY HPI Newprob-Pain in right shoulder HPI Details 72-year-old right hand dominant male who presents to the office today for evaluation of right shoulder pain for about 3 months. He states he has worsening sharp pain and limited ROM in his shoulder which radiates down to his arm. His pain is aggravated with sleeping, raising his arm and prolonged use of the shoulder. He also c/o occasional tremors in his hand due to the pain. He has not had any injury in the past. He does not have a history of diabetes. He has a history of right shoulder sx with Dr. Martel, about 20 years ago. [facility] Medical History Absent kidney Anemia in chronic kidney disease Anxiety disorder Bladder cancer Chronic right shoulder pain COPD (chronic obstructive pulmonary disease) Excessive sleepiness Fatigue History of heartburn Hx of bladder cancer Impaired fasting glucose Intolerance to BiPAP/CPAP Mixed dyslipidemia Obesity (BMI 30.0-34.9) Obstructive sleep apnea Plantar fasciitis Polyneuropathy Psoriasis Recurrent nephrolithiasis Stage 3b chronic kidney disease Statin intolerance Tubular adenoma of colon Surgical History History of hernia repair History of surgery on arm History of urostomy History of vagotomy Hx of cholecystectomy Family History Father HTN (hypertension) Diabetes mellitus Dyslipidemia CAD (coronary artery disease) Aneurysm Mother CAD (coronary artery disease) Diabetes mellitus Dyslipidemia HTN (hypertension) COPD (chronic obstructive pulmonary disease) Brother History of heart attack Son No problems noted. Daughter No problems noted. Daughter No problems noted. Social History (Updated 11/07/22 @ 08:33 by ROWAN Dale) Housing: House Alcohol intake: never Patient Tobacco Use Status: Never used Tobacco e-Cigarette/Vaping Use: Never Used service: Yes Current occupational status: retired Current occupation: right hand Cognitive needs: No Hearing needs: No Vision needs: Yes Review of Systems Const All systems reviewed & are unremarkable except as noted in HPI and below Physical Exam Vital Signs: BMI result Body Mass Index 44.9 Extrem Other: Right shoulder normal to inspection. Tenderness over the bicipital groove and along the deltoid region of the shoulder. Forward flexion to 80, external rotation to 90, internal rotation to S1. 5/5 RTC strength. Positive Cavazos. NVI. Office Procedures Joint Injection/Drain Joint Injection/Drain Primary Site: right shoulder Prep: site was prepped using aseptic technique, ethochloride spray was applied and injection warnings given Injected: 80 mg of, DepoMedrol, with 8 mL of, 1% plain lidocaine and in the subcromial space Approach Used: posterolateral Procedure: The patient tolerated the procedure well and there was some relief with the local anesthesia Coding - Glenohumeral/Tronchanteric Bursa/Intraarticular Procedure code (CPT) selection complete Results Reviewed Results Reviewed: 11/07/22 08:54 Lidocaine HCl 2 % MPF [Xylocaine 2 % MPF] 5 ml .ROUTE .STK-MED ONE methylPREDNISolone acetate [DEPO-MedroL] 80 mg .ROUTE .STK-MED ONE xrays of the right shoulder obtained on 09/27/22 show mild oa, no acute fracture or dislocations. Assessment & Plan Assessment & Plan (1) Right rotator cuff tendinitis: Code(s): M75.81 - Other shoulder lesions, right shoulder (2) Acromioclavicular joint arthritis: Code(s): M19.019 - Primary osteoarthritis, unspecified shoulder Plan We discussed options today which include steroid injection. They did consent to move forward with the right shoulder injection, which was tolerated well. I also gave him a handout of home exercises in the office today. I recommended rest, ice and elevation for discomfort. If symptoms persist or worsens over the next 6-8 weeks, patient will contact the office, otherwise follow-up as needed. Patient Instructions: Scribed for Cortez Valenzuela PA-C, by Octavio Sandhu claim review medical director, on 11/07/2022 at 8:30 AM CHAVO. Cortez Mccabe PA-C, have personally reviewed and agree with t he information entered by the scribe. Coding Level of Care Code Est Pt Level 3 (78782) Diagnoses Right rotator cuff tendinitis M75.81 Acromioclavicular joint arthritis M19.019 CPT Codes Coding - Joint 7: - Glenohumeral/Tronchanteric Bursa/Intraarticular ([id number])
== END 2022-11-07 09:11 | disposition home or self-care (01) ==
PROVIDERS: PCP Internal Medicine; Visit Provider Physician Assistant
DX: M75.81 Other shoulder lesions, right shoulder (principal); M19.011 Primary osteoarthritis, right shoulder
CPT/HCPCS: 20610; 99213

== ENCOUNTER → 2022-11-07 08:17 | Outpatient (BNVA) | payer MEDICARE, SELFPAY | PROVIDERS: PCP Internal Medicine; Visit Provider Physician Assistant | DX: M75.81 Other shoulder lesions, right shoulder (principal); M19.011 Primary osteoarthritis, right shoulder | CPT/HCPCS: 20610; 99212; J1040 ==

== ENCOUNTER 2023-02-21 06:03 | Outpatient (REF) | payer MEDICARE, SELFPAY ==
[2023-02-21 11:33] LABS: Glucose Fasting 104 mg/dL (60-99)
== END 2023-02-21 06:04 | disposition home or self-care (01) ==
LOC: HO.HMGCLDS 06:03
PROVIDERS: PCP Internal Medicine; Visit Provider Internal Medicine
DX: Z00.01 Encounter for general adult medical examination with abnormal findings (principal); R73.01 Impaired fasting glucose
CPT/HCPCS: 36415; 82947

== ENCOUNTER 2023-03-20 08:44 | Outpatient (AMB) | payer MEDICARE, SELFPAY ==
--- NOTE | 2023-03-20 08:50 | A.OFFPC_ITS ---
<Statement entered by Stephanie Vega MD - 08/28/24 15:26> This note has been administratively?closed. Vital Signs 03/20/23 08:51 Height 5 ft 7 in Weight 235 lb 8 oz BMI 36.9 BP 142/80 H Blood Pressure Location Lt brachial Position Sitting Pulse 59 Pulse Source Pulse Oximeter Pulse Oximetry (%) 100 Oxygen Delivery Method Room Air Intake Visit Reasons: Annual PE Intake Note: pt is here for his Annual PE Allergies atorvastatin [Lipitor] Adverse Reaction (Unknown, Verified 03/20/23 10:03) muscle pain pravastatin Adverse Reaction (Unknown, Verified 03/20/23 10:03) muscle pain rosuvastatin [Crestor] Adverse Reaction (Unknown, Verified 03/20/23 10:03) muscle pain simvastatin Adverse Reaction (Unknown, Verified 03/20/23 10:03) muscle pain aspirin Adverse Reaction (Verified 03/20/23 10:03) Abdominal Pain ibuprofen Adverse Reaction (Verified 03/20/23 10:03) Abdominal Pain Sulfa (Sulfonamide Antibiotics) Adverse Reaction (Verified 03/20/23 10:03) stomach ache Medication List - Last Reconciled 03/20/23 by Stephanie Vega MD albuterol sulfate 90 mcg/actuation (ProAir HFA) 2 puffs inhalation Q4-6H PRN allopurinol 100 mg PO DAILY budesonide-formoterol 160-4.5 mcg/actuation (Symbicort) 2 puffs inhalation BID carvedilol 12.5 mg PO BID cholecalciferol (vitamin D3) 50 mcg PO DAILY cranberry fruit concentrate (Cran-Max) 500 mg PO BID famotidine 40 mg PO DAILY fenofibrate micronized 134 mg PO DAILY gabapentin Take 2 capsules in a.m., 1 capsule at noon and 1 capsule in p.m. PO; pitavastatin calcium (Livalo) 4 mg PO DAILY Tobacco use date assessed: 03/20/23 Fall risk assessment: No Falls in past year Last assessed Fall Risk: 03/20/23 Dental Screening Dental Screen Date: 03/20/23 Did you have a dental visit in the last 12 months?: No Did you have a dental problem in the last 6 months where you did not have access to dental care?: No Was dental information given to patient?: No HPI HPI Comments History of Present Illness Details Has an appointment already scheduled for next month with tool specialist, Dr. Jenkins, her his vp software Dr. Garza and, his urologist Dr. Rhoades. Up-to-date with all his vaccinations. 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 [facility] Medical History Chronic right shoulder pain Excessive sleepiness Fatigue History of heartburn Hx of bladder cancer Polyneuropathy Stage 3b chronic kidney disease Absent kidney Anemia in chronic kidney disease Obesity (BMI 30.0-34.9) Impaired fasting glucose COPD (chronic obstructive pulmonary disease) Plantar fasciitis Recurrent nephrolithiasis Intolerance to BiPAP/CPAP Obstructive sleep apnea Psoriasis Tubular adenoma of colon Anxiety disorder Statin intolerance Mixed dyslipidemia Bladder cancer Surgical History History of urostomy History of vagotomy History of hernia repair History of surgery on arm Hx of cholecystectomy Family History Father HTN (hypertension) Diabetes mellitus Dyslipidemia CAD (coronary artery disease) Aneurysm Mother CAD (coronary artery disease) Diabetes mellitus Dyslipidemia HTN (hypertension) COPD (chronic obstructive pulmonary disease) Brother History of heart attack Son No problems noted. Daughter No problems noted. Daughter No problems noted. Housing: House Alcohol intake: never Patient Tobacco Use Status: Never used Tobacco e-Cigarette/Vaping Use: Never Used Second Hand Smoke Exposure: No service: Yes Current occupational status: retired Current occupation: right hand Cognitive needs: No Hearing needs: No Vision needs: Yes Questionnaire Thrive Questionnaire Date Thrive assessed: 07/20/21 ALVERTO-7 AMB Questionnaire ALVERTO-7 Date ALVERTO - 7 assessed: 07/20/21 Source: Developed by Drs. Joaquin Hansen, Lillian Cullen, Melquiades Gomez and colleagues, with an educational chela from [employer]. Physical exam (Primary Care) Vital Signs: Last Vital Signs Pulse 59 03/20/23 08:51 BP 142/80 H 03/20/23 08:51 Pulse Ox 100 03/20/23 08:51 Oxygen Delivery Method Room Air 03/20/23 08:51 BMI result Body Mass Index 36.9 Tobacco/Smoking Status: Tobacco use Status Tobacco use date assessed 03/20/23 03/20/23 08:57 Patient Tobacco Use Status Never used Tobacco 03/20/23 08:52 e-Cigarette/Vaping Use Never Used 03/20/23 08:52 Thrive Assessment: Date of Thrive Assessment Date Thrive assessed 07/20/21 03/20/23 08:52 Date of discussion: 03/20/23 Who was present: Patient Forms completed: None (Healthcare proxy and MOLST form given to patient, wants to discuss this 1st with his family) Time spent: 1-15 minutes, not on file Actual minutes spent: 15 Assessment and Plan Assessment & Plan (1) Annual visit for general adult medical examination with abnormal findings: Code(s): Z00.01 - Encounter for general adult medical examination with abnormal findings (2) Mixed dyslipidemia: Code(s): E78.2 - Mixed hyperlipidemia (3) Impaired fasting glucose: Code(s): R73.01 - Impaired fasting glucose (4) Obesity (BMI 30.0-34.9): Code(s): E66.9 - Obesity, unspecified (5) COPD (chronic obstructive pulmonary disease): Comment: sees Dr eJnkins Code(s): J44.9 - Chronic obstructive pulmonary disease, unspecified (6) Obstructive sleep apnea: Comment: Followed by Dr. Jenkins Code(s): G47.33 - Obstructive sleep apnea (adult) (pediatric) (7) Bladder cancer: Comment: Status post bladder resection followed by Dr. Rhoades Code(s): C67.9 - Malignant neoplasm of bladder, unspecified Qualifiers: Bladder location: unspecified site Qualified Code(s): C67.9 - Malignant neoplasm of bladder, unspecified (8) Anemia in chronic kidney disease: Code(s): N18.9 - Chronic kidney disease, unspecified; D63.1 - Anemia in chronic kidney disease Orders: Orders Hemoglobin A1c Today E66.9 - Obesity, unspecified, E78.2 - Mixed hyperlipidemia, R73.01 - Impaired fasting glucose, Z00.01 - Encounter for general adult medical examination with abnormal findings Alanine Aminotransferase Today E66.9 - Obesity, unspecified, E78.2 - Mixed hyperlipidemia, R73.01 - Impaired fasting glucose, Z00.01 - Encounter for general adult medical examination with abnormal findings Aspartate Amino Transferase Today E66.9 - Obesity, unspecified, E78.2 - Mixed hyperlipidemia, R73.01 - Impaired fasting glucose, Z00.01 - Encounter for general adult medical examination with abnormal findings Glucose Fasting Today E66.9 - Obesity, unspecified, E78.2 - Mixed hyperlipidemia, R73.01 - Impaired fasting glucose, Z00.01 - Encounter for general adult medical examination with abnormal findings Vitamin D 25-OH Total Today E66.9 - Obesity, unspecified, E78.2 - Mixed hyperlipidemia, R73.01 - Impaired fasting glucose, Z00.01 - Encounter for general adult medical examination with abnormal findings Lipid Panel Today E66.9 - Obesity, unspecified, E78.2 - Mixed hyperlipidemia, R73.01 - Impaired fasting glucose, Z00.01 - Encounter for general adult medical examination with abnormal findings Coding Level of Care Code Est Pt Prev Care >65y(03646) Diagnoses Annual visit for general adult medical examination with abnormal findings Z00.01 Mixed dyslipidemia E78.2 Impaired fasting glucose R73.01 Obesity (BMI 30.0-34.9) E66.9 COPD (chronic obstructive pulmonary disease) J44.9 Obstructive sleep apnea G47.33 Malignant neoplasm of urinary bladder, unspecified site C67.9 Bladder location: unspecified site Anemia in chronic kidney disease N18.9; D63.1 Additional Codes Vital Signs *Quality* - Time spent: 1-15 minutes, not on file ([id number])
[2023-03-20 08:51] VITALS: BP 142/80; PULSE 59; O2SAT 100; BMI 36.9
== END 2023-03-20 10:15 | disposition home or self-care (01) ==
PROVIDERS: PCP Internal Medicine; Visit Provider Internal Medicine
DX: Z00.01 Encounter for general adult medical examination with abnormal findings (principal); E78.2 Mixed hyperlipidemia; R73.01 Impaired fasting glucose; E66.9 Obesity, unspecified; J44.9 Chronic obstructive pulmonary disease, unspecified; G47.33 Obstructive sleep apnea (adult) (pediatric); C67.9 Malignant neoplasm of bladder, unspecified; N18.9 Chronic kidney disease, unspecified; D63.1 Anemia in chronic kidney disease; Z00.00 Encounter for general adult medical examination without abnormal findings
CPT/HCPCS: 1124F; 99499

== ENCOUNTER 2023-04-06 13:53 | Outpatient (AMB) | payer MEDICARE, SELFPAY ==
--- NOTE | 2023-04-06 14:05 | MHC.OFFVIS ---
Intake Intake Visit Reasons: ov- -Pain in right shoulder Intake Note: Dajuan a 72 year old male presents today for a follow up of right shoulder, last injection 11/07/22. Patient reports last injection provided him good relief until the end of January. He continues to do at home exercises as instructed. He would like to repeat injection today. Allergies atorvastatin [Lipitor] Adverse Reaction (Unknown, Verified 04/06/23 14:08) muscle pain pravastatin Adverse Reaction (Unknown, Verified 04/06/23 14:08) muscle pain rosuvastatin [Crestor] Adverse Reaction (Unknown, Verified 04/06/23 14:08) muscle pain simvastatin Adverse Reaction (Unknown, Verified 04/06/23 14:08) muscle pain aspirin Adverse Reaction (Verified 04/06/23 14:08) Abdominal Pain ibuprofen Adverse Reaction (Verified 04/06/23 14:08) Abdominal Pain Sulfa (Sulfonamide Antibiotics) Adverse Reaction (Verified 04/06/23 14:08) stomach ache HPI ov- -Pain in right shoulder HPI Details 73-year-old male who returns to the office today for a follow-up of right shoulder pain. He continues to do exercises at home as instructed. He had his last injection on 11/07/22 which provided him good relief until the end of January. He would like to repeat the injection. [facility] Medical History Chronic right shoulder pain Excessive sleepiness Fatigue History of heartburn Hx of bladder cancer Polyneuropathy Stage 3b chronic kidney disease Absent kidney Anemia in chronic kidney disease Obesity (BMI 30.0-34.9) Impaired fasting glucose COPD (chronic obstructive pulmonary disease) Plantar fasciitis Recurrent nephrolithiasis Intolerance to BiPAP/CPAP Obstructive sleep apnea Psoriasis Tubular adenoma of colon Anxiety disorder Statin intolerance Mixed dyslipidemia Bladder cancer Surgical History History of urostomy History of vagotomy History of hernia repair History of surgery on arm Hx of cholecystectomy Family History Father HTN (hypertension) Diabetes mellitus Dyslipidemia CAD (coronary artery disease) Aneurysm Mother CAD (coronary artery disease) Diabetes mellitus Dyslipidemia HTN (hypertension) COPD (chronic obstructive pulmonary disease) Brother History of heart attack Son No problems noted. Daughter No problems noted. Daughter No problems noted. Social History Housing: House Alcohol intake: never Patient Tobacco Use Status: Never used Tobacco e-Cigarette/Vaping Use: Never Used Second Hand Smoke Exposure: No service: Yes Current occupational status: retired Current occupation: right hand Cognitive needs: No Hearing needs: No Vision needs: Yes Review of Systems Const All systems reviewed & are unremarkable except as noted in HPI and below Physical Exam Extrem Other: Right shoulder normal to inspection. Tenderness over the bicipital groove and along the deltoid region of the shoulder. Forward flexion to 80, external rotation to 90, internal rotation to S1. 5/5 RTC strength. Positive Cavazos. NVI. Office Procedures Joint Injection/Drain Joint Injection/Drain Primary Site: right shoulder Prep: site was prepped using aseptic technique, ethochloride spray was applied and injection warnings given Injected: 80 mg of, DepoMedrol, with 8 mL of, 1% plain lidocaine and in the subcromial space Approach Used: anterolateral Procedure: The patient tolerated the procedure well and there was some relief with the local anesthesia Coding 52235 - Glenohumeral/Tronchanteric Bursa/Intraarticular Procedure code (CPT) selection complete Assessment & Plan Assessment & Plan (1) Right rotator cuff tendinitis: Code(s): M75.81 - Other shoulder lesions, right shoulder (2) Acromioclavicular joint arthritis: Code(s): M19.019 - Primary osteoarthritis, unspecified shoulder Qualifiers: Laterality: right Qualified Code(s): M19.011 - Primary osteoarthritis, right shoulder Plan We discussed options today which include steroid injection. They did consent to move forward with the right shoulder injection, which was tolerated well. I recommended rest, ice and elevation and OTC anti-inflammatories PRN for discomfort. If symptoms persist or worsens over the next 6-8 weeks, patient will contact the office, otherwise follow-up as needed. Patient Instructions: Scribed for Cortez Valenzuela PA-C, by Octavio Sandhu medical communication specialist, on 04/06/2023 at 2:15 PM EST. ICortez PA-C, have personally reviewed and agree with the information entered by the scribe. Coding Level of Care Code Est Pt Level 3 (49614) Diagnoses Right rotator cuff tendinitis M75.81 Arthritis of right acromioclavicular joint M19.011 Laterality: right CPT Codes Coding - Joint 7: 60591 - Glenohumeral/Tronchanteric Bursa/Intraarticular ([id number])
== END 2023-04-06 14:25 | disposition home or self-care (01) ==
PROVIDERS: PCP Internal Medicine; Visit Provider Physician Assistant
DX: M75.81 Other shoulder lesions, right shoulder (principal); M19.011 Primary osteoarthritis, right shoulder
CPT/HCPCS: 20610; 99213

== ENCOUNTER → 2023-04-06 13:53 | Outpatient (BNVA) | payer MEDICARE, SELFPAY | PROVIDERS: PCP Internal Medicine; Visit Provider Physician Assistant | DX: M75.81 Other shoulder lesions, right shoulder (principal); M19.011 Primary osteoarthritis, right shoulder | CPT/HCPCS: 20610; 99212; J1040 ==

== ENCOUNTER 2023-09-04 06:48 | Outpatient (REF) | payer MEDICARE, SELFPAY ==
[2023-09-04 10:37] LABS: Estimated Average Glucose 114 mg/dL; Hemoglobin A1c % 5.6 % (<6.0)
[2023-09-04 11:08] LABS: Alanine Aminotransferase 20 U/L (0-40); Aspartate Amino Transferase 20 U/L (5-37); Cholesterol 242 mg/dL (<200); Glucose Fasting 110 mg/dL (60-99); HDL Cholesterol 39 mg/dL (>40); LDL Cholesterol Calculated 154 mg/dL (<100); Triglycerides 245 mg/dL (<150)
[2023-09-04 11:25] LABS: Vitamin D 25-OH Total 36.3 ng/mL (>30)
== END 2023-09-04 06:49 | disposition home or self-care (01) ==
LOC: HO.HMGCLDS 06:48
PROVIDERS: PCP Internal Medicine; Visit Provider Internal Medicine
DX: E78.2 Mixed hyperlipidemia (principal); E66.9 Obesity, unspecified; R73.01 Impaired fasting glucose; Z00.01 Encounter for general adult medical examination with abnormal findings
CPT/HCPCS: 36415; 80061; 82306; 82947; 83036; 84450; 84460

== ENCOUNTER 2023-11-06 08:47 | Outpatient (AMB) | payer MEDICARE, SELFPAY ==
[2023-11-06 09:28] VITALS: BP 130/72; PULSE 56; O2SAT 95; BMI 36.3
--- NOTE | 2023-11-06 09:28 | A.OFFPC_ITS ---
Vital Signs 11/06/23 09:28 Height 5 ft 7 in Weight 232 lb BMI 36.3 BP 130/72 Blood Pressure Location Lt brachial Position Sitting Pulse 56 Pulse Source Pulse Oximeter Pulse Oximetry (%) 95 Oxygen Delivery Method Room Air Intake Visit Reasons: 6M F/U dilia from 09/11 Intake Note: Pt is here today for his 6mo. f/u Allergies atorvastatin [Lipitor] Adverse Reaction (Unknown, Verified 11/12/23 23:20) muscle pain pravastatin Adverse Reaction (Unknown, Verified 11/12/23 23:20) muscle pain rosuvastatin [Crestor] Adverse Reaction (Unknown, Verified 11/12/23 23:20) muscle pain simvastatin Adverse Reaction (Unknown, Verified 11/12/23 23:20) muscle pain aspirin Adverse Reaction (Verified 11/12/23 23:20) Abdominal Pain ibuprofen Adverse Reaction (Verified 11/12/23 23:20) Abdominal Pain Sulfa (Sulfonamide Antibiotics) Adverse Reaction (Verified 11/12/23 23:20) stomach ache Medication List - Last Reconciled 11/12/23 by Stephanie Vega MD albuterol sulfate 90 mcg/actuation (ProAir HFA) 2 puffs inhalation Q4-6H PRN allopurinol 100 mg PO DAILY budesonide-formoterol 160-4.5 mcg/actuation (Symbicort) 2 puffs inhalation BID carvedilol 12.5 mg PO BID cholecalciferol (vitamin D3) 50 mcg PO DAILY cranberry fruit concentrate (Cran-Max) 500 mg PO BID ezetimibe 10 mg PO DAILY famotidine 40 mg PO DAILY fenofibrate micronized 134 mg PO DAILY gabapentin Take 2 capsules in a.m., 1 capsule at noon and 1 capsule in p.m. PO; Tobacco use date assessed: 11/06/23 Fall risk assessment: No Falls in past year Last assessed Fall Risk: 11/06/23 Dental Screening Dental Screen Date: 11/06/23 Did you have a dental visit in the last 12 months?: No Did you have a dental problem in the last 6 months where you did not have access to dental care?: No Was dental information given to patient?: Patient declined [facility] Medical History Chronic right shoulder pain Excessive sleepiness Fatigue History of heartburn Hx of bladder cancer Polyneuropathy Stage 3b chronic kidney disease Absent kidney Anemia in chronic kidney disease Obesity (BMI 30.0-34.9) Impaired fasting glucose COPD (chronic obstructive pulmonary disease) Plantar fasciitis Recurrent nephrolithiasis Intolerance to BiPAP/CPAP Obstructive sleep apnea Psoriasis Tubular adenoma of colon Anxiety disorder Statin intolerance Mixed dyslipidemia Bladder cancer Surgical History History of urostomy History of vagotomy History of hernia repair History of surgery on arm Hx of cholecystectomy Family History Father HTN (hypertension) Diabetes mellitus Dyslipidemia CAD (coronary artery disease) Aneurysm Mother CAD (coronary artery disease) Diabetes mellitus Dyslipidemia HTN (hypertension) COPD (chronic obstructive pulmonary disease) Brother History of heart attack Son No problems noted. Daughter No problems noted. Daughter No problems noted. Social History Housing: House Alcohol intake: never Patient Tobacco Use Status: Never used Tobacco e-Cigarette/Vaping Use: Never Used Second Hand Smoke Exposure: No service: Yes Current occupational status: retired Current occupation: right hand Cognitive needs: No Hearing needs: No Vision needs: Yes Questionnaire PHQ-9 Over the last 2 weeks, how often have you been bothered by any of the following problems? 1. Little interest or pleasure in doing things: several days 2. Feeling down, depressed, or hopeless: not at all 3. Trouble falling or staying asleep, or sleeping too much: not at all 4. Feeling tired or having little energy: several days 5. Poor appetite or overeating: not at all 6. Feeling bad about yourself - or that you are a failure or have let yourself or your family down: not at all 7. Trouble concentrating on things, such as reading the newspaper or watching television: not at all 8. Moving or speaking so slowly that other people could have noticed. Or the opposite - being so fidgety or restless that you have been moving around a lot more than usual: not at all 9. Thoughts that you would be better off or of hurting yourself in some way: not at all Total score: 2 Depression Screening Interpretation: Negative Depression Screening Done: Yes 44839 - PHQ-9 Billing: Yes Source: Developed by Drs. Joaquin Hansen, Lillian Cullen, Melquiades Gomez and colleagues, with an educational chela from [employer]. Thrive Questionnaire Date Thrive assessed: 11/06/23 I am a: Patient What is your living situation today?: I have a steady place to live Within the past 12 months, did the food you bought not last and you didn't have the money to get more?: Never true Within the past 12 months, did you worry whether your food would run out before you got money to buy more?: Never true Do you have trouble paying for medicines?: Yes Do you have trouble getting transportation to medical appointments?: No Do you have trouble paying your heating and electricity bill?: No Do you have trouble taking care of your child, family member or friend?: No Do you have trouble with day-to-day activities such as bathing, preparing meals, shopping, managing finances, etc.?: No Are you currently unemployed and looking for a job?: No Are you interested in more education?: No Please select the resources that you would like help with: Housing/Senior Living Currently or been in a relationship where the following occur: No concerns reported THRIVE Score: 0 AUDIT C Alcohol Use Questionnaire (AUDIT-C) 1. How often do you have a drink containing alcohol?: Never 2. How many drinks containing alcohol do you have on a typical day when you are drinking?: 1 or 2 3. How often do you have six or more drinks on one occasion?: Never Total Score: 0 ALVERTO-7 AMB Questionnaire ALVERTO-7 Date ALVERTO - 7 assessed: 11/06/23 Feeling nervous, anxious, or on edge: 0 = Not at all Not being able to stop or control worryin = Not at all Worrying too much about different things: 0 = Not at all Trouble relaxin = Several days Being so restless that it is hard to sit still: 0 = Not at all Becoming easily annoyed or irritable: 0 = Not at all Feeling afraid as if something awful might happen: 0 = Not at all Total ALVERTO-7 score (0-4 normal; 5-9 mild; 10-14 moderate; 15-21 severe): 1 Source: Developed by Drs. Joaquin Hansen, Lillian Cullen, Melquiades Gomez and colleagues, with an educational chela from [employer]. Physical exam (Primary Care) Vital Signs: Last Vital Signs Pulse 56 11/06/23 09:28 BP 130/72 11/06/23 09:28 Pulse Ox 95 11/06/23 09:28 Oxygen Delivery Method Room Air 11/06/23 09:28 BMI result Body Mass Index 36.3 Tobacco/Smoking Status: Tobacco use Status Tobacco use date assessed 11/06/23 11/06/23 09:31 Patient Tobacco Use Status Never used Tobacco 11/06/23 09:31 e-Cigarette/Vaping Use Never Used 11/06/23 09:31 PHQ-9: PHQ-9 Score PHQ-9: Total score 2 11/06/23 09:56 Depression Screening Interpretation: Negative Thrive Assessment: Date of Thrive Assessment Date Thrive assessed 11/06/23 11/06/23 09:33 Currently or been in a relationship where the following occur: No concerns reported Results Reviewed Results Reviewed: wilbert: Dajuan Lawson Age/Sex: 73/M : 1950 Unit#: [id number] Attend Dr: Stephanie Vega MD Re09/04/23 Status: DEP REF Location: [facility] Disch: SPEC : [id number] MARIO: 09/04/23 STATUS: COMP REQ : [id number] RECD: 09/04/[address]: Stephanie Vega MD COMP: 09/04/23 ENTERED: 09/04/[address] [facility] DR: ORDERED: Glu Fasting, AST, ALT, Lipid Panel, Vitamin D 25-OH Test Result Flag Reference FBS 110 H 60-99 mg/dL A fasting glucose from 100-125 mg/dl is considered impaired (pre-diabetes). AST (GOT) 20 5-37 U/L ALT (GPT) 20 0-40 U/L Triglyceride 245 H <150 mg/dL Desirable Triglyceride: less than 150 mg/dL Borderline High Triglyceride 150-199 mg/dL High Triglyceride: 200-499 mg/dL Very High Triglyceride: greater than or equal to 5OO mg/dL Cholesterol 242 H <200 mg/dL Desirable Cholesterol: less than 200 mg/dL Borderline High Cholesterol: 200-239 mg/dL High Cholesterol: greater than 239 mg/dL LDL Calculated 154 H <100 mg/dL Desirable LDL: less than 100 mg/dL Near Optimal/Above Optimal LDL: 110-129 mg/dL Borderline High LDL: 130-159 mg/dL High LDL: 160-189 mg/dL Very High LDL: greater than or equal to 190 mg/dL HDL 39 L >40 mg/dL Desirable HDL: greater than 40 mg/dL Note: This HDL assay may give artificially low results in patients with liver disease. Vit D 25-OH Tot 36.3 >30 ng/mL Health Based Reference Values* < 20 ng/mL Deficient 20-30 ng/mL Insufficient > 30 ng/mL Sufficient Laboratory Tests 09/04/23 07:02 Estimat Average Glucose 114 Hemoglobin A1c % 5.6 Assessment and Plan Assessment & Plan (1) Mixed dyslipidemia: Code(s): E78.2 - Mixed hyperlipidemia Plan: Unable to tolerate statins, will try on ezetimibe 10 mg once a day, goal LDL is less than 100 mg/dL , repeat fasting lipid panel in 3 months. (2) Statin intolerance: Code(s): Z78.9 - Other specified health status Plan: Discontinued pitavastatin (3) Anemia in chronic kidney disease: Code(s): N18.9 - Chronic kidney disease, unspecified; D63.1 - Anemia in chronic kidney disease Plan: Will check another CBC and iron profile (4) Stage 3b chronic kidney disease: Code(s): N18.32 - Chronic kidney disease, stage 3b Plan: Followed by Nephrology, Dr. Garza Orders: Orders IRON PROFILE 11/06/23 D63.1 - Anemia in chronic kidney disease, N18.32 - Chronic kidney disease, stage 3b, N18.9 - Chronic kidney disease, unspecified Complete Blood Count Auto Diff 11/06/23 D63.1 - Anemia in chronic kidney disease, N18.32 - Chronic kidney disease, stage 3b, N18.9 - Chronic kidney disease, unspecified Creatine Kinase Total 02/23/24 E78.2 - Mixed hyperlipidemia, Z78.9 - Other specified health status Alanine Aminotransferase 02/23/24 E78.2 - Mixed hyperlipidemia, Z78.9 - Other specified health status Aspartate Amino Transferase 02/23/24 E78.2 - Mixed hyperlipidemia, Z78.9 - Other specified health status Lipid Panel 02/23/24 E78.2 - Mixed hyperlipidemia, Z78.9 - Other specified health status Medications: New ezetimibe 10 mg PO DAILY 30 tabs 5RF E78.2 - Mixed hyperlipidemia Discontinued pitavastatin calcium (Livalo) Discontinued Reason: Patient Refused 4 mg PO DAILY 90 tabs 1RF E78.2 - Mixed hyperlipidemia Coding Level of Care Code Est Pt Level 4 (04828) Complex EM visit Add On G2211 Diagnoses Mixed dyslipidemia E78.2 Statin intolerance Z78.9 Anemia in chronic kidney disease N18.9; D63.1 Stage 3b chronic kidney disease N18.32
== END 2023-11-06 10:16 | disposition home or self-care (01) ==
PROVIDERS: PCP Internal Medicine; Visit Provider Internal Medicine
DX: E78.2 Mixed hyperlipidemia (principal); Z78.9 Other specified health status; N18.9 Chronic kidney disease, unspecified; D63.1 Anemia in chronic kidney disease; N18.32 Chronic kidney disease, stage 3b
CPT/HCPCS: 99214; G2211

== ENCOUNTER 2023-11-06 10:15 | Outpatient (REF) | payer MEDICARE, SELFPAY ==
[2023-11-06 13:11] LABS: MANUAL DIFF FLAG NO
[2023-11-06 13:28] LABS: Basophils Percent Auto 0.8 % (0-2); Eosinophils Absolute Auto 0.2 X10*3/uL (0.0-0.4); Eosinophils Percent Auto 4.5 % (0-4); Hematocrit 38.4 % (42.0-52.0); Hemoglobin 12.6 g/dl (14.0-18.0); Imm Gran Abs Auto 0.02 X10*3/uL (0.00-0.03); Imm Gran Pct Auto 0.4 % (0.0-0.4); Lymphocytes Absolute Auto 1.5 X10*3/uL (1.2-4.9); Lymphocytes Percent Auto 30.5 % (20-40); Mean Corpuscular HGB Conc 32.8 g/dl (31.0-36.0); Mean Corpuscular Hemoglobin 30.7 pg (27.0-33.0); Mean Corpuscular Volume 93.4 fL (80.0-98.0); Mean Platelet Volume 10.1 fL (9.4-12.4); Monocytes Absolute Auto 0.5 X10*3/uL (0.1-1.2); Monocytes Percent Auto 9.2 % (2-11); Neutrophils Absolute Auto 2.7 x10*3/uL (2.0-8.3); Neutrophils Percent Auto 54.6 % (45-73); Platelet Count 240 X10*3/uL (160-400); Red Blood Count 4.11 X10*6/uL (4.60-5.80); Red Cell Distribution Width 13.4 % (11.0-16.0); White Blood Count 4.9 X10*3/uL (4.8-10.8)
[2023-11-06 14:00] LABS: Iron 91 mcg/dL (45-160); Percent Iron Saturation 28 % (15-50); Total Iron Binding Capacity 324 mcg/dL (228-428); Unsaturated Iron Binding 233 ug/dL
== END 2023-11-06 10:16 | disposition home or self-care (01) ==
LOC: HO.HMGCLDS 10:15
PROVIDERS: PCP Internal Medicine; Visit Provider Internal Medicine
DX: N18.32 Chronic kidney disease, stage 3b (principal); N18.9 Chronic kidney disease, unspecified; D63.1 Anemia in chronic kidney disease
CPT/HCPCS: 36415; 83540; 85025

== ENCOUNTER 2024-03-06 06:08 | Outpatient (REF) | payer MEDICARE, SELFPAY ==
[2024-03-06 11:31] LABS: Alanine Aminotransferase 16 U/L (0-40); Aspartate Amino Transferase 24 U/L (5-37); Cholesterol 207 mg/dL (<200); HDL Cholesterol 53 mg/dL (>40); LDL Cholesterol Calculated 120 mg/dL (<100); Triglycerides 172 mg/dL (<150)
== END 2024-03-06 06:09 | disposition home or self-care (01) ==
LOC: HO.HMGCLDS 06:08
PROVIDERS: PCP Internal Medicine; Visit Provider Internal Medicine
DX: E78.2 Mixed hyperlipidemia (principal); Z78.9 Other specified health status
CPT/HCPCS: 36415; 80061; 82550; 84450; 84460

== ENCOUNTER 2024-03-27 08:10 | Outpatient (AMB) | payer MEDICARE, SELFPAY ==
[2024-03-27 08:22] VITALS: BP 132/80; PULSE 59; O2SAT 97; BMI 35.5
--- NOTE | 2024-03-27 08:22 | MHC.PC.OV ---
Vital Signs 03/27/24 08:22 Height 5 ft 7 in Weight 227 lb BMI 35.5 BP 132/80 Blood Pressure Location Lt brachial Position Sitting Pulse 59 Pulse Source Pulse Oximeter Pulse Oximetry (%) 97 Oxygen Delivery Method Room Air Intake Visit Reasons: Annual PE Intake Note: Pt is here today for his PE: Last colonoscopy Allergies atorvastatin [Lipitor] Adverse Reaction (Unknown, Verified 03/27/24 08:47) muscle pain pravastatin Adverse Reaction (Unknown, Verified 03/27/24 08:47) muscle pain rosuvastatin [Crestor] Adverse Reaction (Unknown, Verified 03/27/24 08:47) muscle pain simvastatin Adverse Reaction (Unknown, Verified 03/27/24 08:47) muscle pain aspirin Adverse Reaction (Verified 03/27/24 08:47) Abdominal Pain ibuprofen Adverse Reaction (Verified 03/27/24 08:47) Abdominal Pain Sulfa (Sulfonamide Antibiotics) Adverse Reaction (Verified 03/27/24 08:47) stomach ache Medication List - Last Reconciled 03/27/24 by Stephanie Vega MD albuterol sulfate 90 mcg/actuation (ProAir HFA) 2 puffs inhalation Q4-6H PRN budesonide-formoterol 160-4.5 mcg/actuation (Symbicort) 2 puffs inhalation BID carvedilol 12.5 mg PO BID cholecalciferol (vitamin D3) 50 mcg PO DAILY cranberry fruit concentrate (Cran-Max) 500 mg PO BID ezetimibe 10 mg PO DAILY famotidine 40 mg PO DAILY fenofibrate micronized 134 mg PO DAILY gabapentin Take 2 capsules in a.m., 1 capsule at noon and 1 capsule in p.m. PO; Tobacco use date assessed: 03/27/24 Fall risk assessment: No Falls in past year Last assessed Fall Risk: 03/27/24 Dental Screening Dental Screen Date: 03/27/24 Did you have a dental visit in the last 12 months?: No Did you have a dental problem in the last 6 months where you did not have access to dental care?: No Was dental information given to patient?: Patient declined HPI Annual PE HPI Details 74-year-old male presenting today for a physical exam. He sees Dr. Garza for follow-up on his chronic kidney disease and anemia of chronic disease. Followed by Dr. Rhoades for his recurrent nephrolithiasis, and history of bladder cancer s/p cystectomy with urostomy bag in place, and he sees Dr. Jenkins for his obstructive sleep apnea, and COPD, intolerant of BiPAP/CPAP. He states that he has been taking off allopurinol by Dr. Rhoades as his uric acid levels have normalized Complains of dry cough, which has been ongoing for the past two weeks following a cold. He reports that the cold symptoms have resolved, but the cough persists and is described as a dry, nagging cough. He denies postnasal drainage . The patient initially managed his cold with [id number] cold medication, , but not currently taking any remedies. He is using Symbicort inhaler , which has not yet alleviated the cough. He has hyperlipidemia, which has shown improvement following recent addition of Zetia to his fenofibrate, with total cholesterol decreasing from 242 mg/dL to 207 mg/dL, and triglycerides down to 172 mg/dL. Has neuropathy, with foot pain currently on gabapentin, which provides moderate relief. The patient notes noticeable weight loss of approximately five pounds over the last three months without intentional changes in diet or activity. [facility] Medical History Chronic right shoulder pain Excessive sleepiness Fatigue History of heartburn Hx of bladder cancer Polyneuropathy Stage 3b chronic kidney disease Absent kidney Anemia in chronic kidney disease Obesity (BMI 30.0-34.9) Impaired fasting glucose COPD (chronic obstructive pulmonary disease) Plantar fasciitis Recurrent nephrolithiasis Intolerance to BiPAP/CPAP Obstructive sleep apnea Psoriasis Tubular adenoma of colon Anxiety disorder Statin intolerance Mixed dyslipidemia Bladder cancer Surgical History History of urostomy History of vagotomy History of hernia repair History of surgery on arm Hx of cholecystectomy Family History Father HTN (hypertension) Diabetes mellitus Dyslipidemia CAD (coronary artery disease) Aneurysm Mother CAD (coronary artery disease) Diabetes mellitus Dyslipidemia HTN (hypertension) COPD (chronic obstructive pulmonary disease) Brother History of heart attack Son No problems noted. Daughter No problems noted. Daughter No problems noted. Social History Housing: House Alcohol intake: never Patient Tobacco Use Status: Never used Tobacco e-Cigarette/Vaping Use: Never Used Second Hand Smoke Exposure: No service: Yes Current occupational status: retired Current occupation: right hand Cognitive needs: No Hearing needs: No Vision needs: Yes Questionnaire Thrive Questionnaire Date Thrive assessed: 11/06/23 I am a: Patient What is your living situation today?: I have a steady place to live Within the past 12 months, did the food you bought not last and you didn't have the money to get more?: Never true Within the past 12 months, did you worry whether your food would run out before you got money to buy more?: Never true Do you have trouble paying for medicines?: Yes Do you have trouble getting transportation to medical appointments?: No Do you have trouble paying your heating and electricity bill?: No Do you have trouble taking care of your child, family member or friend?: No Do you have trouble with day-to-day activities such as bathing, preparing meals, shopping, managing finances, etc.?: No Are you currently unemployed and looking for a job?: No Are you interested in more education?: No Please select the resources that you would like help with: None Currently or been in a relationship where the following occur: No concerns reported THRIVE Score: 0 ALVERTO-7 AMB Questionnaire ALVERTO-7 Date ALVERTO - 7 assessed: 11/06/23 Source: Developed by Drs. Joaquin Hansen, Lillian Cullen, Melquiades Gomez and colleagues, with an educational chela from [employer]. Review of Systems Const Denies body aches, Denies chills, Denies fatigue, Denies fever(s), Denies headache(s) and Denies weakness Eyes Details: Sees Dr. Goodman Denies change in vision, Denies eye discharge and Denies itchy eyes ENT Denies dizziness, Denies headache(s), Denies nasal congestion, Denies nasal discharge and Denies sore throat Card Denies chest pain, Denies lightheadedness, Denies palpitations, Denies dyspnea and Denies dyspnea on exertion Resp Reports as per HPI, Denies chest congestion, Denies pain with cough, Denies dyspnea, Denies dyspnea on exertion and Denies wheezing GI Denies abdominal pain, Denies change in bowel habits and Denies heartburn Details: Has urostomy bag Musc Reports no additional complaints Skin/Breast Denies lesions and Denies rash Neuro Denies dizziness, Denies headache(s) and Denies weakness Psych Reports no additional complaints Endo Denies fatigue, Denies polydipsia, Denies polyuria and Denies palpitations Porfirio/Lymph Denies easy bruising Aller/Immun Denies itchy eyes, Denies seasonal rhinorrhea and Denies wheezing Physical exam (Primary Care) Vital Signs: Last Vital Signs Pulse 59 03/27/24 08:22 BP 132/80 03/27/24 08:22 Pulse Ox 97 03/27/24 08:22 Oxygen Delivery Method Room Air 03/27/24 08:22 BMI result Body Mass Index 35.5 BMI Assessment/Plan discussion: High BMI High, discussed plan: lifestyle, weight reduction, dietary and physical activity Tobacco/Smoking Status: Tobacco use Status Tobacco use date assessed 03/27/24 03/27/24 08:28 Patient Tobacco Use Status Never used Tobacco 03/27/24 08:28 e-Cigarette/Vaping Use Never Used 03/27/24 08:28 Thrive Assessment: Date of Thrive Assessment Date Thrive assessed 11/06/23 03/27/24 08:28 Currently or been in a relationship where the following occur: No concerns reported Const General: comfortable, no acute distress and alert Orientation/consciousness: patient oriented x3 HENMT Mouth: Normal oral and palatal mucosa present, oropharynx normal and moist mucous membranes Eyes General: appearance normal, both eyes and all related structures Neck Neck: Yes full ROM, Yes no lymphadenopathy and Yes supple Chest Chest palpation & inspection: normal inspection of the chest Resp Other: Mild crackles in both lung bases, no wheezing Effort & Inspection: normal respiratory effort and able to speak in complete sentences Cardio Rate: regular rate Rhythm: regular rhythm Heart sounds: S1 normal heart sound present and S2 normal heart sound present GI Palpation (GI): Soft to palpation, nontender and no masses Auscultation: normal bowel sounds Other: Urostomy bag in right mid quadrant, draining clear yellow urine General: Yes no CVA tenderness Back/Spine/Pelvis Back: no CVA tenderness and No back tenderness Skin General skin exam: no rashes or lesions noted Neuro General: patient oriented x3, gait normal, tone normal, moves all extremities, Normal light touch and pain sensation and no focal motor deficits Extrem General: Yes full ROM, Yes no joint enlargement, Yes no pedal edema, Yes no calf tenderness and Yes normal gait Psych Appearance: grossly normal and well kempt Mental Status: mental status grossly normal Speech and movement: Normal speech and movement present Affect: normal affect Attitude: cooperative Thought process: Normal thought process present Results Reviewed Results Reviewed: Name: Dajuan Lawson Age/Sex: 74/M : 1950 Unit#: [id number] Attend Dr: Stephanie Vega MD Re03/06/24 Status: DEP [facility] SPEC : [id number] MARIO: 03/06/24 STATUS: COMP REQ : [id number] RECD: 03/06/[address]: Stephanie Vega MD COMP: 03/06/24 ENTERED: 03/06/[address]: ORDERED: AST, ALT, CK Total, Lipid Panel Test Result Flag Reference AST (GOT) 24 5-37 U/L ALT (GPT) 16 0-40 U/L CK Total 82 38-174 U/L Triglyceride 172 H <150 mg/dL Desirable Triglyceride: less than 150 mg/dL Borderline High Triglyceride 150-199 mg/dL High Triglyceride: 200-499 mg/dL Very High Triglyceride: greater than or equal to 5OO mg/dL Cholesterol 207 H <200 mg/dL Desirable Cholesterol: less than 200 mg/dL Borderline High Cholesterol: 200-239 mg/dL High Cholesterol: greater than 239 mg/dL LDL Calculated 120 H <100 mg/dL Desirable LDL: less than 100 mg/dL Near Optimal/Above Optimal LDL: 110-129 mg/dL Borderline High LDL: 130-159 mg/dL High LDL: 160-189 mg/dL Very High LDL: greater than or equal to 190 mg/dL HDL 53 >40 mg/dL Desirable HDL: greater than 40 mg/dL Note: This HDL assay may give artificially low results in patients with liver disease. Coding Level of Care Code Est Pt Prev Care >65y(40361) Diagnoses Annual visit for general adult medical examination with abnormal findings Z00.01 Mixed dyslipidemia E78.2 Tubular adenoma of colon D12.6 Obstructive sleep apnea G47.33 COPD (chronic obstructive pulmonary disease) J44.9 Obesity (BMI 30.0-34.9) E66.9 Anemia in chronic kidney disease N18.9; D63.1 Polyneuropathy G62.9 Stage 3b chronic kidney disease N18.32 Assessment & Plan Assessment & Plan (1) Annual visit for general adult medical examination with abnormal findings: Code(s): Z00.01 - Encounter for general adult medical examination with abnormal findings (2) Mixed dyslipidemia: Code(s): E78.2 - Mixed hyperlipidemia Category: Medical (3) Tubular adenoma of colon: Code(s): D12.6 - Benign neoplasm of colon, unspecified Category: Medical (4) Obstructive sleep apnea: Comment: Followed by Dr. Jenkins, unable to tolerate BiPAP/CPAP Code(s): G47.33 - Obstructive sleep apnea (adult) (pediatric) Category: Medical (5) COPD (chronic obstructive pulmonary disease): Comment: sees Dr Jenkins Code(s): J44.9 - Chronic obstructive pulmonary disease, unspecified Category: Medical (6) Obesity (BMI 30.0-34.9): Code(s): E66.9 - Obesity, unspecified Category: Medical (7) Anemia in chronic kidney disease: Code(s): N18.9 - Chronic kidney disease, unspecified; D63.1 - Anemia in chronic kidney disease Category: Medical (8) Polyneuropathy: Code(s): G62.9 - Polyneuropathy, unspecified Category: Medical (9) Stage 3b chronic kidney disease: Code(s): N18.32 - Chronic kidney disease, stage 3b Category: Medical Plan - Persistent Cough: Plan to monitor and has appointment already scheduled with Dr. Jenkins tomorrow for follow-up of his COPD Will hold off on putting on any medications at present time, patient denies any other symptoms except for that cough - Hyperlipidemia: Improving cholesterol levels noted after starting ezetimibe. Continue current management with fenofibrate and ezetimibe, will order another fasting lipid panel in June or July 2024, prior to scheduled appointment - Hypertension Management: Continue with current medication regimen including Carvedilol, followed by Nephrology, Dr. Garza yearly - Gout: Maintain uric acid levels with dietary management, allopurinol discontinued by his urologist unless levels increase. - Heartburn: Continue usual management with famotidine as needed. - Degenerative Disc Disease and Chronic Foot Pain: Continue gabapentin for neuropathic pain relief; reassess efficacy regularly. -up-to-date with all his vaccinations except for RSV vaccine which she plans to get once he feels better -has an appointment with Dr. Lopez this month to discuss repeat colonoscopy screening Orders: Orders Basic Metabolic Panel Fasting 06/22/24 D12.6 - Benign neoplasm of colon, unspecified, D63.1 - Anemia in chronic kidney disease, E66.9 - Obesity, unspecified, E78.2 - Mixed hyperlipidemia, G47.33 - Obstructive sleep apnea (adult) (pediatric), G62.9 - Polyneuropathy, unspecified, J44.9 - Chronic obstructive pulmonary disease, unspecified, N18.32 - Chronic kidney disease, stage 3b, N18.9 - Chronic kidney disease, unspecified, N20.0 - Calculus of kidney, Z00.01 - Encounter for general adult medical examination with abnormal findings Alanine Aminotransferase 06/22/24 D12.6 - Benign neoplasm of colon, unspecified, D63.1 - Anemia in chronic kidney disease, E66.9 - Obesity, unspecified, E78.2 - Mixed hyperlipidemia, G47.33 - Obstructive sleep apnea (adult) (pediatric), G62.9 - Polyneuropathy, unspecified, J44.9 - Chronic obstructive pulmonary disease, unspecified, N18.32 - Chronic kidney disease, stage 3b, N18.9 - Chronic kidney disease, unspecified, N20.0 - Calculus of kidney, Z00.01 - Encounter for general adult medical examination with abnormal findings Aspartate Amino Transferase 06/22/24 D12.6 - Benign neoplasm of colon, unspecified, D63.1 - Anemia in chronic kidney disease, E66.9 - Obesity, unspecified, E78.2 - Mixed hyperlipidemia, G47.33 - Obstructive sleep apnea (adult) (pediatric), G62.9 - Polyneuropathy, unspecified, J44.9 - Chronic obstructive pulmonary disease, unspecified, N18.32 - Chronic kidney disease, stage 3b, N18.9 - Chronic kidney disease, unspecified, N20.0 - Calculus of kidney, Z00.01 - Encounter for general adult medical examination with abnormal findings Complete Blood Count Auto Diff 06/22/24 D63.1 - Anemia in chronic kidney disease, G62.9 - Polyneuropathy, unspecified, N18.32 - Chronic kidney disease, stage 3b, N18.9 - Chronic kidney disease, unspecified Lipid Panel 06/22/24 D12.6 - Benign neoplasm of colon, unspecified, D63.1 - Anemia in chronic kidney disease, E66.9 - Obesity, unspecified, E78.2 - Mixed hyperlipidemia, G47.33 - Obstructive sleep apnea (adult) (pediatric), G62.9 - Polyneuropathy, unspecified, J44.9 - Chronic obstructive pulmonary disease, unspecified, N18.32 - Chronic kidney disease, stage 3b, N18.9 - Chronic kidney disease, unspecified, N20.0 - Calculus of kidney, Z00.01 - Encounter for general adult medical examination with abnormal findings
== END 2024-03-27 09:09 | disposition home or self-care (01) ==
PROVIDERS: PCP Internal Medicine; Visit Provider Internal Medicine
DX: Z00.00 Encounter for general adult medical examination without abnormal findings (principal); E78.2 Mixed hyperlipidemia; J44.9 Chronic obstructive pulmonary disease, unspecified; N18.32 Chronic kidney disease, stage 3b; D12.6 Benign neoplasm of colon, unspecified; G47.33 Obstructive sleep apnea (adult) (pediatric); Z68.35 Body mass index [BMI] 35.0-35.9, adult; E66.9 Obesity, unspecified; D63.1 Anemia in chronic kidney disease; G62.9 Polyneuropathy, unspecified

== ENCOUNTER → 2024-03-27 08:10 | Outpatient (BNVA) | payer MEDICARE, SELFPAY | PROVIDERS: PCP Internal Medicine; Visit Provider Internal Medicine | DX: Z00.01 Encounter for general adult medical examination with abnormal findings (principal); E78.2 Mixed hyperlipidemia; D12.6 Benign neoplasm of colon, unspecified; G47.33 Obstructive sleep apnea (adult) (pediatric); J44.9 Chronic obstructive pulmonary disease, unspecified; E66.9 Obesity, unspecified; N18.32 Chronic kidney disease, stage 3b; D63.1 Anemia in chronic kidney disease; G62.9 Polyneuropathy, unspecified | CPT/HCPCS: 99397 ==

== ENCOUNTER 2024-06-18 06:08 | Outpatient (REF) | payer MEDICARE, SELFPAY ==
--- OUTSIDE RECORDS SUMMARY | 2024-06-18 06:10 | XMS_ITS | Encounter Summary ---
Author Organization [facility] Address [address] [facility] [address] [place] [address] Phone Care Team Providers Care Setter Induction Heating Equipment Name Role Phone Mahnaz Vega MD Primary Care Provider +1- [phone] Reason for Visit * Reason Comments Med Refill Encounter Details Date Type Department Care Team ([facility] st Contact Info) Description 07/20/2020 Refill [facility] [address] [place] [phone] Chavo Ronquillo MD [address] [facility] [address] [place] [address] Social History Tobacco Use Types [...] 07/02/2024 Orders Only [facility] [address] [address] Chavo Ronquillo MD [facility] [address] Stage 3b chronic kidney disease (HCC); Proteinuria, not otherwise specified; Hypertension; Localized edema; Hyperkalemia; Dyslipidemia; Chronic metabolic acidosis; Anemia in chronic kidney disease; Urostomy present (HCC) 07/11/2024 8:00 AM EDT Office Visit [facility] [address] [address] Chavo Ronquillo MD [facility] [address] [address] documented as of this encounter Visit Diagnoses Not on filedocumented in this encounter Care Teams Setter Induction Heating Equipment Relationship Specialty Start Date End Date Mahnaz Vega MD [address] [place] [id number] PCP - General 05/04/20 documented as of this encounter
--- OUTSIDE RECORDS SUMMARY | 2024-06-18 06:10 | XMS_ITS | Clinical Summary ---
Author Organization [facility] Address [address] [place] [address] Care Team Providers Care Croze Machine Operator Name Role Phone Unavailable Primary Care Provider [...]
--- OUTSIDE RECORDS SUMMARY | 2024-06-18 06:10 | XMS_ITS ---
Author Organization [facility] Address [address] [place] [address] Care Team Providers Care First Calender Worker Name Role Phone Gary DUMAS, Stephanie Primary Care Provider Patrick Castillo Jr Unavailable [phone] ALLERGIES Allergen (clinical drug ingredient) Drug/Non Drug [...] medication other than anticoagulant (Z79.899) Active confirmed 321435541 Problem Personal history of colonic polyps (Z86.0100) Active confirmed 517532053 VITAL SIGNS Temperature 97.7 degrees Fahrenheit 04/15/20 24 Blood pressure systolic 000 mm Hg 04/15/20 24 Blood pressure diastolic 00 mm Hg 024 Height 68.5 in 04/15/2024 Weight 223 lb 4 oz lbs 04/15/2024 BMI 33.45 kg/m2 04/15/2024 Encounters Encounter Location Date Provider Diagnosis [facility] [address] [place] [address] 04/15/2024 Patrick Lopez Jr Colon cancer screening [...] 07/05/2024 07:30:00 AM, [address] , [place], [place], [phone], Progress Notes * Examination Category Sub-Category Detail [...]
--- OUTSIDE RECORDS SUMMARY | 2024-06-18 06:10 | XMS_ITS | Clinical Summary ---
Author Organization [facility] Address [address] [facility] [address] [place] [address] Phone Care Team Providers Care Line Servicer Name Role Phone Mahnaz Vega MD Primary Care Provider +1- [phone] Allergies Active Allergy Reactions Criticality Noted Date [...] Orders Only [facility] [address] [phone] Chavo Ronquillo MD [address] [phone] Stage 3b chronic kidney disease (HCC); Proteinuria, not otherwise specified; Hypertension; Localized edema; Hyperkalemia; Dyslipidemia; Chronic metabolic acidosis; Anemia in chronic kidney disease; Urostomy present (HCC) 07/11/2024 8:00 AM EDT Office Visit [facility] [place] [id number] [phone] Chavo Ronquillo MD [address] [phone] Health Maintenance Due Date Last Done Comments Colorectal Cancer Screening: Annual FOBT 01/21/2000 Colorectal Cancer Screening: Colonoscopy 01/21/2000 Colorectal Cancer Screening: Sigmoidoscopy 01/21/2000 Influenza Vaccine (#1) 2023 9, 01/01/2018, 01/17/2017 Pneumococcal Vaccine: 65+ Years Completed 04/25/2018, 04/24/2017 Hepatitis B Vaccine Aged Out No longe r eligible based on patient's age to complete this topic Insurance Care Teams Line Servicer Relationship Specialty Start Date End Date Mahnaz Vega MD [address] [place] [address] PCP - General 05/04/20
--- OUTSIDE RECORDS SUMMARY | 2024-06-18 06:10 | XMS_ITS | Patient Health Record ---
Author Organization [facility] Address [address] [place] [address] Care Team Providers Care Distresser Name Role Phone Gary DUMAS, Stephanie Primary Care Provider Patrick Castillo Jr Unavailable [phone] ALLERGIES Allergen (clinical drug ingredient) Drug/Non Drug [...] Problem Colon cancer screening (Z12.11) Active confirmed 675830114 Problem Encounter for other preprocedural examination (Z01.818) Active confirmed 261911734 Problem Long-term current use of high risk medication other than anticoagulant (Z79.899) Active confirmed 168976970 Problem Personal history of colonic polyps (Z86.0100) Active confirmed 011979744 VITAL SIGNS Temperature 97.7 degrees Fahrenheit 04/15/2024 Blood pressure diastolic 00 mm Hg 04/15/2024 Height 68.5 in 04/15/2024 Blood pressure systolic 000 mm Hg 04/15/2024 Weight 223 lb 4 oz lbs 04/15/2024 BMI 33.45 kg/m2 04/15/2024 Encounters Encounter Location Date Provider Diagnosis [facility] 10 [facility] [address] [place] [phone] 04/15/2024 Patrick Lopez Jr Colon cancer screening [...] Provider Name:Patrick baugh Jr, 07/05/2024 07:30:00 AM, [address] [place] [address], [id number], Insurance Providers Payer Name Payer Address Payer Phone Subscriber Number Group Number Insured Name Patient Relationship to Insured Coverage Start Date Coverage End Date [facility] [address] [place] [address] [id number] CRISTOPHER DIAZ Self - patient is the [...]
[2024-06-18 10:05] LABS: MANUAL DIFF FLAG NO
[2024-06-18 10:11] LABS: Basophils Percent Auto 0.8 % (0-2); Eosinophils Absolute Auto 0.4 X10*3/uL (0.0-0.4); Eosinophils Percent Auto 6.8 % (0-4); Hematocrit 39.1 % (42.0-52.0); Hemoglobin 12.6 g/dl (14.0-18.0); Imm Gran Abs Auto 0.03 X10*3/uL (0.00-0.03); Imm Gran Pct Auto 0.6 % (0.0-0.4); Lymphocytes Absolute Auto 1.7 X10*3/uL (1.2-4.9); Lymphocytes Percent Auto 31.6 % (20-40); Mean Corpuscular HGB Conc 32.2 g/dl (31.0-36.0); Mean Corpuscular Hemoglobin 30.5 pg (27.0-33.0); Mean Corpuscular Volume 94.7 fL (80.0-98.0); Mean Platelet Volume 10.3 fL (9.4-12.4); Monocytes Absolute Auto 0.5 X10*3/uL (0.1-1.2); Monocytes Percent Auto 9.1 % (2-11); Neutrophils Absolute Auto 2.7 x10*3/uL (2.0-8.3); Neutrophils Percent Auto 51.1 % (45-73); Platelet Count 243 X10*3/uL (160-400); Red Blood Count 4.13 X10*6/uL (4.60-5.80); Red Cell Distribution Width 13.5 % (11.0-16.0); White Blood Count 5.3 X10*3/uL (4.8-10.8)
[2024-06-18 10:35] LABS: Alanine Aminotransferase 23 U/L (0-40); Anion Gap 14 (12-20); Aspartate Amino Transferase 20 U/L (5-37); Blood Urea Nitrogen 29 mg/dL (9-16); Calcium 9.4 mg/dL (8.4-10.2); Carbon Dioxide 22 mmol/L (22-29); Chloride 111 mmol/L (96-108); Cholesterol 197 mg/dL (<200); Estimated Glomerular Filt Rate 35; Glucose Fasting 103 mg/dL (60-99); HDL Cholesterol 48 mg/dL (>40); LDL Cholesterol Calculated 105 mg/dL (<100); Potassium 4.9 mmol/L (3.3-5.1); Sodium 142 mmol/L (135-145); Triglycerides 221 mg/dL (<150)
== END 2024-06-18 06:09 | disposition home or self-care (01) ==
LOC: HO.HMGCLDS 06:08
PROVIDERS: PCP Internal Medicine; Visit Provider Internal Medicine
DX: Z00.01 Encounter for general adult medical examination with abnormal findings (principal); N18.32 Chronic kidney disease, stage 3b; E66.9 Obesity, unspecified; E78.2 Mixed hyperlipidemia; N20.0 Calculus of kidney; G47.33 Obstructive sleep apnea (adult) (pediatric); D12.6 Benign neoplasm of colon, unspecified; J44.9 Chronic obstructive pulmonary disease, unspecified; N18.9 Chronic kidney disease, unspecified; D63.1 Anemia in chronic kidney disease; G62.9 Polyneuropathy, unspecified
CPT/HCPCS: 36415; 80048; 80061; 84450; 84460; 85025

== ENCOUNTER 2024-06-26 07:59 | Outpatient (AMB) | payer MEDICARE, SELFPAY ==
--- OUTSIDE RECORDS SUMMARY | 2024-06-26 08:05 | XMS_ITS | Encounter Summary ---
Author Organization [facility] Address [address] [facility] [address] [place] [address] Phone Care Team Providers Care Mainframe Programmer Name Role Phone Mahnaz Vega MD Primary Care Provider +1- [phone] Reason for Visit * Reason Comments Med Refill Encounter Details Date Type Department Care Team ([facility] st Contact Info) Description 07/20/2020 Refill [facility] [address] [place] [phone] Chavo Ronquillo MD [address] [facility] [address] [place] [address] Social History Tobacco Use Types [...] 07/02/2024 Orders Only [facility] [address] [address] Chavo Ronquillo MD [facility] [address] Stage 3b chronic kidney disease (HCC); Proteinuria, not otherwise specified; Hypertension; Localized edema; Hyperkalemia; Dyslipidemia; Chronic metabolic acidosis; Anemia in chronic kidney disease; Urostomy present (HCC) 07/11/2024 8:00 AM EDT Office Visit [facility] [address] [address] Chavo Ronquillo MD [facility] [address] documented as of this encounter Visit Diagnoses Not on filedocumented in this encounter Care Teams Mainframe Programmer Relationship Specialty Start Date End Date Mahnaz Vega MD [address] [place] [address] PCP - General 05/04/20 documented as of this encounter
--- OUTSIDE RECORDS SUMMARY | 2024-06-26 08:05 | XMS_ITS ---
Author Organization [facility] Address [address] [place] [phone] Care Team Providers Care User Experience Manager Name Role Phone Gary DUMAS, Stephanie Primary Care Provider Patrick Castillo Jr Unavailable Allergies Allergen (clinical drug ingredient) Drug/Non Drug Allergy documented on EMR Reaction Allergy Type Onset Date Status nitrofurantoin, macrocrystals / nitrofurantoin, monohydrate Macrobid Unknown Drug Allergy Active ibuprofen Ibuprofen Unknown Drug Allergy Active codeine Codeine Sulfate Unknown Drug Allergy A ctive aspirin Aspirin Unknown Drug Allergy Active Sulfa Unknown Drug Allergy Active Motrin Unknown Drug Allergy Active REASON FOR VISIT Patient presents today for a recall colonoscopy Medications Medication SIG (Take, Route, Frequency, Duration) Notes [...] Once a day for 30 day(s) Active Social History Tobacco Use: Social History Observation Description Date Details (start date - stop date) Former Smoker NA - NA Tobacco Use/Smoking Question Answer Notes Patient is a former smoker How long has it been since you last smoked? > 10 years Alcohol Screen Question Answer Notes Did you have a drink containing alcohol in the p ast year? No Points 0 Interpretation Negative Problems Problem Type SNOMED Code ICD Code Onset Dates Problem Status W/U Status Risk Notes Problem 907428755 Long-term curren t use of high risk medication other than anticoagulant (Z79.899) Active confirmed Problem 943047903 Personal history of colonic polyps (Z86.0100) Active confirmed Vital Signs Temperature 97.7 degrees Fahrenheit 04/15/20 24 Blood pressure systolic 000 mm Hg 04/15/20 24 Blood pressure diastolic 00 mm Hg 024 Height 68.5 in 04/15/2024 Weight 223 lb 4 oz lbs 04/15/2024 BMI 33.45 kg/m2 04/15/2024 Encounters Encounter Location Date Provider Diagnosis [facility] [address] [place] [phone] 04/15/2024 Patrick Lopez Jr Colon cancer screening Z12.11 ; Long-term current use of high risk medication other than anticoagulant Z79.899 and Personal history of colonic polyps Z86.0100 Assessments Encounter Date Diagnosis (ICD Code) Assessment Notes Treatment Notes Treatment Clinical Notes Section Notes 04/15/2024 Colon cancer screening (ICD-10 - Z12.11) Colonoscopy material was printed We discussed colonoscopy today. We discussed risks and benefits of the procedure today. He understands these and agrees to proceed. He is advised to stop his supplements one week before the procedure to decrease risk of blood testing and post polypectomy bleeding 04/15/2024 Long-term current use of high risk medication other than anticoagulant (ICD-10 - Z79.899) We discussed colonoscopy today. We discussed risks and benefits of the procedure today. He understands these and agrees to proceed. He is advised to stop his supplements one week before the procedure to decrease risk of blood testing and post polypectomy bleeding 04/15/2024 Personal history of colonic polyps (ICD-10 - Z86.0100) We discussed colonoscopy today. We discussed risks and benefits of the procedure today. He understands these and agrees to proceed. He is advised to stop his supplements one week before the procedure to decrease risk of blood testing and post polypectomy bleeding Plan Of Treatment Medication Medication Name Sig Start Date Stop [...] Provider Name:Patrick baugh Jr, 07/05/2024 07:30:00 AM, [address] [place] [address] , [place], [place], [id number], Progress Notes * EMILYCRISTOPHERDOB:1950 ([age] yo M)Acc No.[id number]:04/15/2024 Progress Notes Patient:?CRISTOPHER DIAZ Provider:?Patrick Lopez MD :1950???Age:74 Y???Sex:Male Matt e:04/15/2024 Address:[address] [place], [place] [id number] Pcp:Stephanie Vega MD Subjective: * Chief Complaints: * ???1. Patient presents today for a recall colonoscopy. * HPI: ???New symptom(s):? The patient is a pleasant 74-year-old man seen today for his preoperative colonoscopy visit. Previous colonoscopy in 2019 showed a tubular adenoma and five-year followup was recommended. He has no rectal bleeding, pain, or diarrhea. * ROS:?General/Constitutional:?Change in appetite?denies.?Fatigue?denies.?ENT:?Patient denies?difficulty swallowing.?Respiratory:?Patient denies?shortness of breath.?Cardiovascular:?Patient denies?chest pain.?Gastrointestinal:?Comments?See HPI for details.?Genitourinary:?Difficulty urinating?denies.?Incontinence?denies.?Musculoskeletal:?Patient denies?muscle aches.?Skin:?Patient denies?pruritis.?Neurologic:?Patient denies?low back pain.?Psychiatric:?Patient denies?mental or physical abuse.? * Medical History:?Colonoscopy 02/09, tubular adenoma, five-year followup, chronic kidney disease stage IIIB, COPD, Hypertension, Neuropathy, Elevated cholesterol, Mild pulmonary fibrosis. * Surgical History:?hiatal her marifer repair with vagotomy and opyloroplasty , bladder cncer status-post ileal pouch , intestinal obstruction , cholecystectomy , traumatic right index finger amputation , irght inguinal hernia repair , elbow surgery , shoulder surgery on the right , Kidney stones removed , right kidney taken out/ left kidney ds stage 3 , abdominal incisional hernia , abdominal reconstruction . * Hospitalization/Major Diagno stic Procedure:?kidney infection . * Family History:?Father: dece ased.?Mother: .?Siblings: The patient had a brother with a tumor removed from his colon. He also has another brother that had a precancerous polyp..? 2 brothers colon cancer one living one daughter stage 4 colon cancer son colon cancer . No family history of liver cancer. * Social History:?Tobacco Use:?Tobacco Use/Smoking?Patient is a?former smoker,?How long has it been since you last smoked??> 10 years.?Drugs/Alcohol:?Alcohol Screen?Did you have a drink containing alcohol in the past year??No,?Points?0,?Interpretation?Negative.?Miscellaneous:?Marital status: . Occupation: disabled, retired. * Medications:?Taking Symbicor t 160-4.5 MCG/ACT Aerosol as directed Inhalation , Taking Famotidine 40 MG Tablet 1 tablet Orally Once a day, Taking Cranberry 425 MG Capsule as directed Orally , Taking Ezetimibe 10 MG Tablet 1 tablet Orally Once a day, Taking Fenofibrate 134 MG Capsule 1 capsule with a meal Orally Once a day, Taking Gabapentin 300 MG Capsule 2 tablet Orally twice a day, Taking Livalo 4 MG Tablet 1 tablet Orally Once a day, Taking Carvedilol 12.5 MG Tablet 1 tablet Orally BID, Taking Vitamin D3 2000 UNIT Capsule 1 capsule Orally Once a day, Discontinued Allopurinol 100 MG Tablet as directed Orally once a day, Discontinued Sodium Bicarbonate - Powder as directed Orally as directed, Discontinued De Witt 3 1000 MG Capsule 1 capsule Orally Once a day, Discontinued Spiriva Respimat 2.5 MCG/ACT Aerosol Solution 2 puffs Inhalation Once a day, Discontinued ProAir HFA 108 (90 Base) MCG/ACT Aerosol Solution 2 puffs as needed Inhalation every 6 hrs/prn, Discontinued Ranitidine 150 Max Strength 150 MG Tablet 1 tablet at bedtime Orally Once a day, Discontinued MiraLax (colon prep) 8.3 ounce ((238) grams mixed with Gatorade or Crystal Light orally begin at 5:00 p.m. the day before the procedure, Medication List reviewed and reconciled with the patient * Allergies:?Sulfa, Aspirin, C odeine Sulfate, Macrobid, Ibuprofen, Motrin. Objective: * Vitals:?Wt: 223 lb 4 oz, Ht: 68.5 in, BMI:33.45 Index, BP: 000/00 mm Hg, Temp: 97.7. * Examination: ???General Examination: ?GENERAL APPEARANCE:?in no acute distress.?HEAD:?normocephalic.?EYES:?sclera non-icteric.?ORAL CAVITY:?mucosa moist.?NECK/THYROID:?no lymphadenopathy.?SKIN:?anicteric.?HEART:?S1, S2 normal, no murmurs.?LUNGS:?clear to auscultation bilaterally.?CHEST:?normal shape and expansion.?ABDOMEN:?soft, nontender, nondistended, bowel sounds present, no organomegaly .?EXTREMITIES:?no clubbing, cyanosis, or edema.?PSYCH:?cognitive function intact.? Assessment: * Assessment: 1.?Long-term current use of high risk medication other than anticoagulant - Z79.899 (Primary)?2.?Colon cancer screening - Z12.11?3.?Personal history of colonic polyps - Z86.0100? We discussed colonoscopy tod ay. We discussed risks and benefits of the procedure today. He understands these and agrees to proceed. He is advised to stop his supplements one week before the procedure to decrease risk of blood testing and post polypectomy bleeding. Plan: * Treatment: Notes: Colonoscopy material was printed?? * Preventive Medicine:? ??Counseling:?Care goal follow-up plan:?Above Normal BMI Follow-up?Giving encouragement to exercise,?BMI management provided?Yes.? ??Screenings:?Fall Risk Screening?Fall Risk Assessment:?Fall with injury in the past year,?Screening:?One fall without injury in the past year,?Assessment:?Not performed, no reason specified,?Plan of Care:?Documented,?Type of fall plan of care:?Balance, strength and gait training or instruction provided.? * Follow Up:?1 Year * * Sign off status: Completed true * Provider:?Patrick Lopez MD Date:?1 06/16/2023 Generated for Toby hogan/Linda/Noe on:?06/26/2024 08:05 AM EST History and Physical Notes * HPI (History of Present Illness) Category Sub-Category Detail Notes Category Not es New symptom(s) The patient i s a pleasant 74-year-old man seen today for his preoperative colonoscopy visit. Previous colonoscopy in 2019 showed a tubular adenoma and five-year followup was recommended. He has no rectal bleeding, pain, or diarrhea. Examination Category Sub-Category Detail Notes Category Not es General Examination GENERAL APPEARANCE: in no acute di stress HEAD: normocephalic EYES: sclera non-icteric NECK/THYROID: no lymphadenopathy HEART: S1, S2 normal, no mu rmurs CHEST: normal shape and exp ansion LUNGS: clear to auscultatio n bilaterally ABDOMEN: soft, nontender, non distended, bowel sounds present, no organomegaly SKIN: anicteric EXTREMITIES: no clubbing, cyanosi s, or edema PSYCH: cognitive function i ntact ORAL CAVITY: mucosa moist
--- OUTSIDE RECORDS SUMMARY | 2024-06-26 08:05 | XMS_ITS | Clinical Summary ---
Author Organization [facility] Address [address] [facility] [address] [place] [address] Phone Care Team Providers Care Parquet Floor Layer'S Helper Name Role Phone Mahnaz Vega MD Primary Care Provider [phone] Allergies Active Allergy Reactions Criticality Noted Date [...] Orders Only [facility] [address] [phone] Chavo Ronquillo MD [address] [phone] Stage 3b chronic kidney disease (HCC); Proteinuria, not otherwise specified; Hypertension; Localized edema; Hyperkalemia; Dyslipidemia; Chronic metabolic acidosis; Anemia in chronic kidney disease; Urostomy present (HCC) 07/11/2024 8:00 AM EDT Office Visit [facility] [place] [id number] [phone] Chavo Ronquillo MD [address] [phone] Health Maintenance Due Date Last Done Comments Colorectal Cancer Screening: Annual FOBT 01/21/2000 Colorectal Cancer Screening: Colonoscopy 01/21/2000 Colorectal Cancer Screening: Sigmoidoscopy 01/21/2000 Influenza Vaccine (#1) 2023 9, 01/01/2018, 01/17/2017 Pneumococcal Vaccine: 65+ Years Completed 04/25/2018, 04/24/2017 Hepatitis B Vaccine Aged Out No longe r eligible based on patient's age to complete this topic Insurance Care Teams Parquet Floor Layer'S Helper Relationship Specialty Start Date End Date Mahnaz Vega MD [address] [place] [address] PCP - General 05/04/20
--- OUTSIDE RECORDS SUMMARY | 2024-06-26 08:05 | XMS_ITS | Patient Health Record ---
Author Organization [facility] Address [address] [place] [phone] Care Team Providers Care Compress Machine Operator Name Role Phone Gary DUMAS, Stephanie Primary Care Provider Patrick Castillo Jr Unavailable [phone] Allergies Allergen (clinical drug ingredient) Drug/Non Drug Allergy documented on EMR Reaction Allergy Type Onset Date Status nitrofurantoin, macrocrystals / nitrofurantoin, monohydrate Macrobid Unknown Drug Allergy Active ibuprofen Ibuprofen Unknown Drug Allergy Active codeine Codeine Sulfate Unknown Drug Allergy A ctive aspirin Aspirin Unknown Drug Allergy Active Sulfa Unknown Drug Allergy Active Motrin Unknown Drug Allergy Active Reason For Referral No Information Medications Medication SIG (Take, Route, Frequency, Duration) [...] Once a day for 30 day(s) Active Immunizations Vaccine Route Administration Date Status Comme nts Influenza Unknown 12/23/2018 Administered Influenza Unknown 03/27/2024 Administered Social History Tobacco Use: Social History Observation [...] Problem Status W/U Status Risk Notes Problem 691138972 Colon cancer screening (Z12.11) Active confirmed Problem 584154506 Encounter for other preprocedural examination (Z01.818) Active confirmed Problem 287216779 Long-term curren t use of high risk medication other than anticoagulant (Z79.899) Active confirmed Problem 665151094 Personal history of colonic polyps (Z86.0100) Active confirmed Vital Signs Temperature 97.7 degrees Fahrenheit 04/15/2024 Blood pressure diastolic 00 mm Hg 04/15/2024 Height 68.5 in 04/15/2024 Blood pressure systolic 000 mm Hg 04/15/2024 Weight 223 lb 4 oz lbs 04/15/2024 BMI 33.45 kg/m2 04/15/2024 Encounters Encounter Location Date Provider Diagnosis [facility] [address] [place] [address] 04/15/2024 Patrick Lopez Jr Colon cancer screening [...] and post polypectomy bleeding Plan Of Treatment Future Test Test Name Order Date COLONOSCOPY 07/31/2013 COLONOSCOPY 01/10/2019 COLONOSCOPY 04/15/2024 Next Appt Details Provider Name:Patrick baugh Jr, 07/05/2024 07:30:00 AM, [address] [place] [address] , [place], [place], [phone], Insurance Providers Payer Name Payer Address Payer Phone Subscriber Number Group Number Insured Name Patient Relationship to Insured Coverage Start Date Coverage End Date [facility] [address] [place] [phone] [id number] CRISTOPHER DIAZ Self - patient is the insured Medical (General) History Medical History History ICD Code Colonoscopy 02/09, [...]
--- OUTSIDE RECORDS SUMMARY | 2024-06-26 08:05 | XMS_ITS | Clinical Summary ---
Author Organization [facility] Address [address] [place] [address] Care Team Providers Care Weaver Needle Loom Name Role Phone Unavailable Primary Care Provider [...]
[2024-06-26 08:12] VITALS: BP 132/70; PULSE 55; RESP 18; TEMP 36.6; O2SAT 94; BMI 35.7
--- NOTE | 2024-06-26 08:12 | MHC.PC.OV ---
Vital Signs 06/26/24 08:12 Height 5 ft 7 in Weight 228 lb BMI 35.7 BP 132/70 Blood Pressure Location Lt brachial Position Sitting Respiration 18 Pulse 55 Pulse Source Pulse Oximeter Temp 97.9 F Temp Source Oral Pulse Oximetry (%) 94 Oxygen Delivery Method Room Air Intake Visit Reasons: follow up Intake Note: Pt is here today for his f/u labs Allergies atorvastatin [Lipitor] Adverse Reaction (Unknown, Verified 06/26/24 08:33) muscle pain pravastatin Adverse Reaction (Unknown, Verified 06/26/24 08:33) muscle pain rosuvastatin [Crestor] Adverse Reaction (Unknown, Verified 06/26/24 08:33) muscle pain simvastatin Adverse Reaction (Unknown, Verified 06/26/24 08:33) muscle pain aspirin Adverse Reaction (Verified 06/26/24 08:33) Abdominal Pain ibuprofen Adverse Reaction (Verified 06/26/24 08:33) Abdominal Pain Sulfa (Sulfonamide Antibiotics) Adverse Reaction (Verified 06/26/24 08:33) stomach ache Medication List - Last Reconciled 06/26/24 by Stephanie Vega MD albuterol sulfate 90 mcg/actuation (ProAir HFA) 2 puffs inhalation Q4-6H PRN budesonide-formoterol 160-4.5 mcg/actuation (Symbicort) 2 puffs inhalation BID carvedilol 12.5 mg PO BID cholecalciferol (vitamin D3) 50 mcg PO DAILY cranberry fruit concentrate (Cran-Max) 500 mg PO BID ezetimibe 10 mg PO DAILY famotidine 40 mg PO DAILY fenofibrate micronized 134 mg PO DAILY gabapentin Take 2 capsules in a.m., 1 capsule at noon and 1 capsule in p.m. PO; Tobacco use date assessed: 06/26/24 Fall risk assessment: No Falls in past year Last assessed Fall Risk: 06/26/24 Dental Screening Dental Screen Date: 06/26/24 Did you have a dental visit in the last 12 months?: No Did you have a dental problem in the last 6 months where you did not have access to dental care?: No Was dental information given to patient?: Patient declined HPI follow up HPI Details 74-year-old male with history of chronic kidney disease stage IIIB and anemia of chronic disease, followed by Dr. Garza, has recurrent nephrolithiasis with history of bladder cancer status post hysterectomy with urostomy bag in place, followed by Dr. Rhoades, and has obstructive sleep apnea and COPD intolerant of CPAP BiPAP followed by Dr. Jenkins, here today for follow-up on his lipids. He is intolerant of statins, but takes ezetimibe 10 mg daily and fenofibrate 134 mg daily has been compliant with diet, and exercises as much as tolerated. Recent fasting labs done showed triglycerides still elevated but LDL cholesterol and total cholesterol and HDL cholesterol are all now within normal limits. He continues to take gabapentin for peripheral neuropathy which has been helping [facility] Medical History Chronic right shoulder pain Excessive sleepiness Fatigue History of heartburn Hx of bladder cancer Polyneuropathy Stage 3b chronic kidney disease Absent kidney Anemia in chronic kidney disease Obesity (BMI 30.0-34.9) Impaired fasting glucose COPD (chronic obstructive pulmonary disease) Plantar fasciitis Recurrent nephrolithiasis Intolerance to BiPAP/CPAP Obstructive sleep apnea Psoriasis Tubular adenoma of colon Anxiety disorder Statin intolerance Mixed dyslipidemia Surgical History History of urostomy History of vagotomy History of hernia repair History of surgery on arm Hx of cholecystectomy Family History Father HTN (hypertension) Diabetes mellitus Dyslipidemia CAD (coronary artery disease) Aneurysm Mother CAD (coronary artery disease) Diabetes mellitus Dyslipidemia HTN (hypertension) COPD (chronic obstructive pulmonary disease) Brother History of heart attack Son No problems noted. Daughter No problems noted. Daughter No problems noted. Social History Housing: House Alcohol intake: never Patient Tobacco Use Status: Never used Tobacco e-Cigarette/Vaping Use: Never Used Second Hand Smoke Exposure: No service: Yes Current occupational status: retired Current occupation: right hand Cognitive needs: No Hearing needs: No Vision needs: Yes Questionnaire PHQ-9 Over the last 2 weeks, how often have you been bothered by any of the following problems? 1. Little interest or pleasure in doing things: not at all 2. Feeling down, depressed, or hopeless: not at all 3. Trouble falling or staying asleep, or sleeping too much: more than half the days 4. Feeling tired or having little energy: not at all 5. Poor appetite or overeating: not at all 6. Feeling bad about yourself - or that you are a failure or have let yourself or your family down: not at all 7. Trouble concentrating on things, such as reading the newspaper or watching television: not at all 8. Moving or speaking so slowly that other people could have noticed. Or the opposite - being so fidgety or restless that you have been moving around a lot more than usual: not at all 9. Thoughts that you would be better off or of hurting yourself in some way: not at all Total score: 2 Depression Screening Interpretation: Negative Depression Screening Done: Yes 96770 - PHQ-9 Billing: Yes Source: Developed by Drs. Joaquin Hansen, Lillian Cullen, Melquiades Gomez and colleagues, with an educational chela from [employer] Thrive Questionnaire Date Thrive assessed: 06/20/24 I am a: Patient What is your living situation today?: I have a steady place to live Within the past 12 months, did the food you bought not last and you didn't have the money to get more?: Never true Within the past 12 months, did you worry whether your food would run out before you got money to buy more?: Never true Do you have trouble paying for medicines?: No Do you have trouble getting transportation to medical appointments?: No Do you have trouble paying your heating and electricity bill?: No Do you have trouble taking care of your child, family member or friend?: No Do you have trouble with day-to-day activities such as bathing, preparing meals, shopping, managing finances, etc.?: No Are you currently unemployed and looking for a job?: No Are you interested in more education?: No Please select the resources that you would like help with: None Currently or been in a relationship where the following occur: No concerns reported THRIVE Score: 0 AUDIT C Alcohol Use Questionnaire (AUDIT-C) 1. How often do you have a drink containing alcohol?: Never 2. How many drinks containing alcohol do you have on a typical day when you are drinking?: 1 or 2 3. How often do you have six or more drinks on one occasion?: Never Total Score: 0 ALVERTO-7 AMB Questionnaire ALVERTO-7 Date ALVERTO - 7 assessed: 06/26/24 Feeling nervous, anxious, or on edge: 0 = Not at all Not being able to stop or control worryin = Not at all Worrying too much about different things: 0 = Not at all Trouble relaxin = Not at all Being so restless that it is hard to sit still: 0 = Not at all Becoming easily annoyed or irritable: 0 = Not at all Feeling afraid as if something awful might happen: 0 = Not at all Total ALVERTO-7 score (0-4 normal; 5-9 mild; 10-14 moderate; 15-21 severe): 0 Source: Developed by Drs. Joaquin Hansen, Lillian Cullen, Melquiades Gomez and colleagues, with an educational chela from [employer] ALVERTO-7 Assessment Billing ALVERTO-7 Assessment Tool: ALVERTO-7 Assessment 06394 Review of Systems Const Denies body aches, Denies fatigue, Denies fever(s), Denies headache(s) and Denies weakness Eyes Details: Sees Dr. Goodman Denies change in vision, Denies eye discharge and Denies itchy eyes ENT Denies dizziness, Denies headache(s), Denies nasal congestion and Denies nasal discharge Card Denies chest pain, Denies lightheadedness, Denies palpitations, Denies dyspnea and Denies dyspnea on exertion Resp Denies chest congestion, Denies pain with cough, Denies dyspnea, Denies dyspnea on exertion and Denies wheezing GI Details: Has appointment for a screening colonoscopy with Dr. Lopez scheduled for next week Denies abdominal pain, Denies change in bowel habits and Denies heartburn Details: Has urostomy bag Musc Reports no additional complaints Skin/Breast Denies lesions and Denies rash Neuro Denies dizziness, Denies headache(s) and Denies weakness Psych Reports no additional complaints Endo Denies fatigue, Denies polydipsia, Denies polyuria and Denies palpitations Porfirio/Lymph Denies easy bruising Aller/Immun Denies itchy eyes, Denies seasonal rhinorrhea and Denies wheezing Physical exam (Primary Care) Vital Signs: Last Vital Signs Temp 97.9 F 06/26/24 08:12 Pulse 55 06/26/24 08:12 Resp 18 06/26/24 08:12 BP 132/70 06/26/24 08:12 Pulse Ox 94 06/26/24 08:12 Oxygen Delivery Method Room Air 06/26/24 08:12 BMI result Body Mass Index 35.7 Tobacco/Smoking Status: Tobacco use Status Tobacco use date assessed 06/26/24 06/26/24 08:18 Patient Tobacco Use Status Never used Tobacco 06/26/24 08:13 e-Cigarette/Vaping Use Never Used 06/26/24 08:13 PHQ-9: PHQ-9 Score PHQ-9: Total score 2 06/26/24 08:13 Depression Screening Interpretation: Negative Thrive Assessment: Date of Thrive Assessment Date Thrive assessed 06/20/24 06/26/24 08:13 Currently or been in a relationship where the following occur: No concerns reported Const General: comfortable, no acute distress and alert Orientation/consciousness: patient oriented x3 HENMT Mouth: Normal oral and palatal mucosa present, oropharynx normal and moist mucous membranes Eyes General: appearance normal, both eyes and all related structures Neck Neck: Yes full ROM, Yes no lymphadenopathy and Yes supple Resp Effort & Inspection: normal respiratory effort and able to speak in complete sentences Cardio Rate: regular rate Rhythm: regular rhythm Heart sounds: S1 normal heart sound present and S2 normal heart sound present GI Palpation (GI): Soft to palpation, nontender and no masses Auscultation: normal bowel sounds Other: Urostomy bag in right mid quadrant, draining clear yellow urine General: Yes no CVA tenderness Back/Spine/Pelvis Back: no CVA tenderness and No back tenderness Neuro General: patient oriented x3, gait normal, tone normal, moves all extremities, Normal light touch and pain sensation and no focal motor deficits Extrem General: Yes full ROM, Yes no joint enlargement, Yes no pedal edema, Yes no calf tenderness and Yes normal gait Psych Appearance: grossly normal and well kempt Mental Status: mental status grossly normal Speech and movement: Normal speech and movement present Affect: normal affect Results Reviewed Results Reviewed: Name: Dajuan Lawson Age/Sex: 74/M : 1950 Unit#: [id number] Attend Dr: Stephanie Vega MD Re06/18/24 Status: DEP REF Location: [facility]: SPEC : [id number] MARIO: 06/18/24 STATUS: COMP REQ : [id number] RECD: 06/18/[address]: Stephanie Vega MD COMP: 06/18/24 ENTERED: 06/18/[address]: ORDERED: CBC Auto Diff Test Result Flag Reference WBC 5.3 4.8-10.8 X10*3/uL RBC 4.13 L 4.60-5.80 X10*6/uL HGB 12.6 L 14.0-18.0 g/dl HCT 39.1 L 42.0-52.0 % MCV 94.7 80.0-98.0 fL MCH 30.5 27.0-33.0 pg MCHC 32.2 31.0-36.0 g/dl RDW 13.5 11.0-16.0 % PLT 243 160-400 X10*3/uL MPV 10.3 9.4-12.4 fL Neut Pct Auto 51.1 45-73 % ImGran Pct Auto 0.6 H 0.0-0.4 % Lymp Pct Auto 31.6 20-40 % [place] Pct Auto 9.1 2-11 % Eos Pct Auto 6.8 H 0-4 % Baso Pct Auto 0.8 0-2 % NRBC Pct Auto 0.0 0.0-0.2 /100WBC ANC Neut Abs # 2.7 2.0-8.3 x10*3/uL ImGran Abs Auto 0.03 0.00-0.03 X10*3/uL Lymph Abs Auto 1.7 1.2-4.9 X10*3/uL [place] Abs Auto 0.5 0.1-1.2 X10*3/uL Eos Abs Auto 0.4 0.0-0.4 X10*3/uL Baso Abs Auto 0.0 0.0-0.2 X10*3/uL NRBC Abs Auto 0.000 0.0-0.012 X10*3/uL Name: Dajuan Lawson Age/Sex: 74/M : 1950 Unit#: [id number] Attend Dr: Stephanie Vega MD Re06/18/24 Status: DEP REF [facility] Disch: SPEC : [id number] MARIO: 06/18/24 STATUS: COMP REQ : [id number] RECD: 06/18/[address]: Stephanie Vega MD COMP: 06/18/24 ENTERED: 06/18/[address]: ORDERED: Met Prof Fast, AST, ALT, Lipid Panel Test Result Flag Reference Sodium 142 135-145 mmol/L Potassium 4.9 3.3-5.1 mmol/L CL 111 H 96-108 mmol/L CO2 22 22-29 mmol/L Gap 14 12-20 BUN 29 H 9-16 mg/dL Creat 1.88 H 0.5-1.4 mg/dL eGFR 35 Chronic Kidney Disease: Estimated GFR < 60 mL/min/1.73m2 Severe Kidney Disease: Estimated GFR < 15 mL/min/1.73m2 FBS 103 H 60-99 mg/dL A fasting glucose from 100-125 mg/dl is considered impaired (pre-diabetes). CA 9.4 8.4-10.2 mg/dL AST (GOT) 20 5-37 U/L ALT (GPT) 23 0-40 U/L Triglyceride 221 H <150 mg/dL Desirable Triglyceride: less than 150 mg/dL Borderline High Triglyceride 150-199 mg/dL High Triglyceride: 200-499 mg/dL Very High Triglyceride: greater than or equal to 5OO mg/dL Cholesterol 197 <200 mg/dL Desirable Cholesterol: less than 200 mg/dL Borderline High Cholesterol: 200-239 mg/dL High Cholesterol: greater than 239 mg/dL LDL Calculated 105 H <100 mg/dL Desirable LDL: less than 100 mg/dL Near Optimal/Above Optimal LDL: 110-129 mg/dL Borderline High LDL: 130-159 mg/dL High LDL: 160-189 mg/dL Very High LDL: greater than or equal to 190 mg/dL HDL 48 >40 mg/dL Desirable HDL: greater than 40 mg/dL Note: This HDL assay may give artificially low results in patients with liver disease. Coding Level of Care Code Est Pt Level 4 (91555) Complex EM visit Add On G2211 Diagnoses Impaired fasting glucose R73.01 Mixed dyslipidemia E78.2 Additional Codes ALVERTO-7 Assessment Billing - ALVERTO-7 Assessment Tool: ALVERTO-7 Assessment 76752 ([id number]) PHQ-9 - 90154 - PHQ-9 Billing: Yes ([id number]) Assessment & Plan Assessment & Plan (1) Impaired fasting glucose: Code(s): R73.01 - Impaired fasting glucose Category: Medical Plan: Your previous fasting blood sugars were elevated above 100 mg/dL. Impaired glucose metabolism increases the risk for developing diabetes mellitus type 2, as well as heart attack and stroke later on. Lifestyle changes that promotes weight loss, healthy eating habits, and regular exercise are important, and can prevent the progression to diabetes (2) Mixed dyslipidemia: Code(s): E78.2 - Mixed hyperlipidemia Category: Medical Plan: Recent fasting lab results reviewed with patient with triglycerides still elevated but total cholesterol and HDL have improved. Will continue on ezetimibe and fenofibrate in the same dose. Reinforced importance of adhering to a low-cholesterol diet and getting regular exercise Orders: Orders Lipid Panel 03/24/25 E78.2 - Mixed hyperlipidemia, R73.01 - Impaired fasting glucose Aspartate Amino Transferase 03/24/25 E78.2 - Mixed hyperlipidemia, R73.01 - Impaired fasting glucose Glucose Fasting 03/24/25 E78.2 - Mixed hyperlipidemia, R73.01 - Impaired fasting glucose Alanine Aminotransferase 03/24/25 E78.2 - Mixed hyperlipidemia, R73.01 - Impaired fasting glucose Hemoglobin A1c 03/24/25 E78.2 - Mixed hyperlipidemia, R73.01 - Impaired fasting glucose Vitamin D 25-OH Total 03/24/25 E78.2 - Mixed hyperlipidemia, R73.01 - Impaired fasting glucose
== END 2024-06-26 08:56 | disposition home or self-care (01) ==
PROVIDERS: PCP Internal Medicine; Visit Provider Internal Medicine
DX: R73.01 Impaired fasting glucose (principal); E78.2 Mixed hyperlipidemia

== ENCOUNTER → 2024-06-26 07:59 | Outpatient (BNVA) | payer MEDICARE, SELFPAY | PROVIDERS: PCP Internal Medicine; Visit Provider Internal Medicine | DX: R73.01 Impaired fasting glucose (principal); E78.2 Mixed hyperlipidemia | CPT/HCPCS: 96127; 99212 ==

== ENCOUNTER 2024-07-05 06:06 | Day surgery (SDC) | payer MEDICARE, SELFPAY ==
--- OUTSIDE RECORDS SUMMARY | 2024-06-07 11:11 | XMS_ITS | Clinical Summary ---
Author Organization [facility] Address [address] [facility] [address] [place] [address] Phone Care Team Providers Care Aerial Lineman Name Role Phone Mahnaz Vega MD Primary Care Provider [phone] Allergies Active Allergy Reactions Criticality Noted Date Comments Acetaminophen-Codeine Other (see comments) 09/23 Aspirin Other (see comments) 10/12/2020 Other reaction(s): SENSITIVE Codeine 07/12/2021 Other reaction(s): SENSITIVE Ibuprofen Other (see comments) 10/12/2020 Other reaction(s): SENSITIVE Nitrofurantoin Other (see comments) 10/12/2020 Sulfa Antibiotics Other (see comments) 10/13/19 Other reaction(s): TOLD BY DOCTOR I HAD REACTION NOT SURE WHAT HAPPENED TOLD NOT TO TAKE Medications albuterol HFA (PROVENTIL HFA;VENTOLIN HFA) 108 (90 Base) MCG/ACT inhaler as needed Active allopurinol (ZYLOPRIM) 100 MG tablet Take 100 mg by mouth 1 (one) time each day 1 Active budesonide-formo terol (SYMBICORT) 160-4.5 MCG/ACT inhaler Comments: Filled Date: Apr 04 2019 12:00AM Patient Notes: inhale 2 puffs by mouth INTO THE LUNGS twice a day Duration: 30 9 Active gabapentin (NEURONTIN) 300 MG capsule Take 4 capsules by mouth 1 (one) time each day 2 tab in the am , 1 @ noon & 1 qhs Active fenofibrate micronized (LOFIBRA) 134 MG capsule Take 1 capsule by mouth 1 (one) time each day 1 Active Cranberry-Vit C-Lactobacillus (RA CRANBERRY SUPPLEMENTS PO) Take 1 capsule by mouth 1 (one) time each day Active cholecalciferol (VITAMIN D-3) 50 MCG (2000 UT) capsule TAKE 1 CAPSULE BY MOUTH ONCE DAILY 91 capsule 3 2 Active famotidine (PEPCID) 40 MG tablet TAKE 1 TABLET BY MOUTH DAILY 1 HOUR BEFORE A MEAL 3 Active carvedilol (COREG) 12.5 MG tablet Take 1 tablet (12.5 mg total) by mouth in the morning and 1 tablet (12.5 mg total) in the evening. Take with meals. 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 10/14/19 Absent kidney 10/12/2020 Chronic metabolic acidosis 10/12/2020 Stage 3b chronic kidney disease 10/12/2020 Hyperkalemia 10/12/2020 Renal tubular disorder 10/12/2020 Resolved Problems Problem Noted Date Diagnosed Date Resolved Date Acute nontraumatic kidney injury 10/12/2020 07/05/2023 Renal stone 10/12/2020 07/10/2022 Immunizations Name Administration Dates Next Due Influenza Split High Dose Pr eservative Free IM 01/22/2019,01/01/2018,01/17/2017 Pneumococcal Conjugate 13-Valent 04/24/2017 Pneumococcal Polysaccharide 04/25/2018 Family History Medical History Relation Comments Diabetes Father Heart disease Father Hypertension Father Kidney disease Father kidney stones Diabetes Mother Heart disease Mother Hypertension Mother Heart disease Sibling 1 Hypertension Sibling 2 Diabetes Sibling 3 brothers, sister s Relation Status Comments Father Mother Sibling 1 Sibling 2 Sibling 3 Social History Tobacco Use Types Packs/Day Years Used Date Smoking Tobacco: Former Smokeless Tobacco: Never Alcohol Use Standard Drinks/Week Comments No 0 (1 standard drink = 0.6 oz pur e alcohol) Sex and Gender Information Value Date Recorded Sex Assigned at Not on file Legal Sex Male 4:41 PM EST Gender Identity Not on file Sexual Orientation Not on file Last Filed Vital Signs Vital Sign Reading Time Taken Comments Blood Pressure 146/74 07/05/2023 7:40 AM EDT Pulse 54 07/05/2023 7:40 AM EDT Temperature - - Respiratory Rate - - Oxygen Saturation 98% 07/05/2023 7:40 AM EDT Inhaled Oxygen Concentration - - Weight 106 kg (233 lb 9.6 oz) 07/05/2023 7:40 AM EDT Height 172.7 cm (5' 8 ) 07/05/2023 7:40 AM EDT Body Mass Index 35.52 07/05/2023 7:40 AM EDT Plan of Treatment Upcoming Encounters Date Type Department Care Team (Late st Contact Info) Description 07/02/2024 Orders Only [facility] [address] [phone] Chavo Ronquillo MD [address] [phone] Stage 3b chronic kidney disease (HCC); Proteinuria, not otherwise specified; Hypertension; Localized edema; Hyperkalemia; Dyslipidemia; Chronic metabolic acidosis; Anemia in chronic kidney disease; Urostomy present (HCC) 07/11/2024 8:00 AM EDT Office Visit [facility] [place] [id number] [phone] Chavo Ronquillo MD [address] [phone] Health Maintenance Due Date Last Done Comments Colorectal Cancer Screening: Annual FOBT 01/21/2000 Colorectal Cancer Screening: Colonoscopy 01/21/2000 Colorectal Cancer Screening: Sigmoidoscopy 01/21/2000 Influenza Vaccine (#1) 2023 9, 01/01/2018, 01/17/2017 Pneumococcal Vaccine: 65+ Years Completed 04/25/2018, 04/24/2017 Hepatitis B Vaccine Aged Out No longe r eligible based on patient's age to complete this topic Insurance Care Teams Aerial Lineman Relationship Specialty Start Date End Date Mahnaz Vega MD [address] [place] [address] PCP - General 05/04/20
--- OUTSIDE RECORDS SUMMARY | 2024-06-07 11:11 | XMS_ITS ---
Author Organization [facility] Address [address] [place] [address] Care Team Providers Care Pesticide Chemist Name Role Phone Gayr DUMAS, Stephanie Primary Care Provider Patrick Castillo Jr Unavailable [phone] ALLERGIES Allergen (clinical drug ingredient) Drug/Non Drug Allergy documented on EMR Reaction Allergy Type Onset Date Status Motrin Unknown Drug Allergy Active nitrofurantoin, macrocrystals / nitrofurantoin, monohydrate Macrobid Unknown Drug Allergy Active ibuprofen Ibuprofen Unknown Drug Allergy Active codeine Codeine Sulfate Unknown Drug Allergy A ctive aspirin Aspirin Unknown Drug Allergy Active Sulfa Unknown Drug Allergy Active REASON FOR VISIT Patient presents today for a recall colonoscopy MEDICATIONS Medication SIG (Take, Route, Frequency, Duration) Notes Start Date End Date Status MiraLax (colon prep) 17 GM/SCOOP mixed with Gatorade or Crystal Light Orally begin at 5:00 p.m. the day before the procedure for 1 day 04/15/2024 Active Carvedilol 12.5 MG 1 tablet Orally BID Active Vitamin D3 2000 UNIT 1 capsule Orally On ce a day for 30 day(s) Active Fenofibrate 134 MG 1 capsule with a yolande l Orally Once a day for 30 day(s) Active Gabapentin 300 MG 2 tablet Orally twic e a day Active Livalo 4 MG 1 tablet Orally Once a day for 30 day(s) Active Cranberry 425 MG as directed Orally Active Ezetimibe 10 MG 1 tablet Orally Once a day for 30 day(s) Active Symbicort 160-4.5 MCG/ACT as directed Inhalation Active Famotidine 40 MG 1 tablet Orally Once a day for 30 day(s) Active SOCIAL HISTORY Tobacco Use: Social History Observation Description Date Details (start date - stop date) Former Smoker NA - NA Sex Assigned At : Social History Observation Description Sex Assigned At Unknown Tobacco Use/Smoking Question Answer Notes Patient is a former smoker How long has it been since you last smoked? > 10 years Alcohol Screen Question Answer Notes Did you have a drink containing alcohol in the p ast year? No Points 0 Interpretation Negative PROBLEMS Problem Type ICD Code Onset Dates Problem Status W/U Status Risk SNOMED Code Notes Problem Long-term current use of high risk medication other than anticoagulant (Z79.899) Active confirmed 769189813 Problem Personal history of colonic polyps (Z86.0100) Active confirmed 732957955 VITAL SIGNS BMI 33.45 kg/m2 04/15/2024 Blood pressure systolic 000 mm Hg 04/15/20 24 Blood pressure diastolic 00 mm Hg 024 Height 68.5 in 04/15/2024 Temperature 97.7 degrees Fahrenheit 04/15/20 24 Weight 223 lb 4 oz lbs 04/15/2024 Encounters Encounter Location Date Provider Diagnosis [facility] [address] [place] [address] 04/15/2024 Patrick Lopez Jr Colon cancer screening Z12.11 ; Long-term current use of high risk medication other than anticoagulant Z79.899 and Personal history of colonic polyps Z86.0100 ASSESSMENTS Encounter Date Diagnosis Assessment Notes Treatment Notes Treatment Clinical Notes 04/15/2024 Colon cancer screening (ICD-10 - Z12.11) Colonoscopy material was printed 04/15/2024 Long-term current use of high risk medication other than anticoagulant (ICD-10 - Z79.899) 04/15/2024 Personal history of colonic polyps (ICD-10 - Z86.0100) PLAN OF TREATMENT Medication Medication Name Sig Start Date Stop Date Notes MiraLax (colon prep) 17 GM/SCOOP mixed with Gatorade or Crystal Light Orally begin at 5:00 p.m. the day before the procedure for 1 day 04/15/2024 Treatment Notes Assessment Notes Colon cancer screening Colonoscopy mater ial was printed Future Test Test Name Order Date COLONOSCOPY 04/15/2024 Next Appt Details Follow Up: 1 Year, Reason: Provider Name:Patrick baugh Jr, 07/05/2024 07:30:00 AM, [address] , [place], [place], [phone], Progress Notes * Examination Category Sub-Category Detail Notes General Examination GENERAL APPEARANCE: in no ac lino distress HEAD: normocephalic EYES: sclera non-icteric NECK/THYROID: no lymphadenopathy HEART: S1, S2 normal, no mu rmurs CHEST: normal shape and exp ansion LUNGS: clear to auscultatio n bilaterally ABDOMEN: soft, nontender, non distended, bowel sounds present, no organomegaly SKIN: anicteric EXTREMITIES: no clubbing, cyanosi s, or edema PSYCH: cognitive function i ntact ORAL CAVITY: mucosa moist
--- OUTSIDE RECORDS SUMMARY | 2024-06-07 11:11 | XMS_ITS | Encounter Summary ---
Author Organization [facility] Address [address] [facility] [address] [place] [address] Phone Care Team Providers Care Head Of History Name Role Phone Mahnaz Vega MD Primary Care Provider +1- [phone] Reason for Visit * Reason Comments Med Refill Encounter Details Date Type Department Care Team ([facility] st Contact Info) Description 07/20/2020 Refill [facility] [address] [place] [address] [place] [phone] Chavo Ronquillo MD [address] [facility] [address] [place] [address] Social History Tobacco Use Types Packs/Day Years Used Date Smoking Tobacco: Former Alcohol Use Standard Drinks/Week Comments No 0 (1 standard drink = 0.6 oz pur e alcohol) Sex and Gender Information Value Date Recorded Sex Assigned at Not on file Legal Sex Male 4:41 PM EST Gender Identity Not on file Sexual Orientation Not on file documented as of this encounter Miscellaneous Notes * Telephone Encounter - Elsi Giles - 08/04/2020 9:19 AM EDT Follow up appt made. * Telephone Encounter - Chavo Ronquillo MD - 07/21/2020 6:08 AM EDT Needs an appointments please documented in this encounter Plan of Treatment Upcoming Encounters Date Type Department Care Team (Late st Contact Info) Description 07/02/2024 Orders Only [facility] [address] [address] Chavo Ronquillo MD [facility] [address] Stage 3b chronic kidney disease (HCC); Proteinuria, not otherwise specified; Hypertension; Localized edema; Hyperkalemia; Dyslipidemia; Chronic metabolic acidosis; Anemia in chronic kidney disease; Urostomy present (HCC) 07/11/2024 8:00 AM EDT Office Visit [facility] [address] [address] Chavo Ronquillo MD [facility] [address] documented as of this encounter Visit Diagnoses Not on filedocumented in this encounter Care Teams Head Of History Relationship Specialty Start Date End Date Mahnaz Vega MD [address] [place] [id number] PCP - General 05/04/20 documented as of this encounter
--- OUTSIDE RECORDS SUMMARY | 2024-06-07 11:11 | XMS_ITS | Patient Health Record ---
Author Organization [facility] Address [address] [place] [address] Care Team Providers Care Rolling Attendant Name Role Phone Gary DUMAS, Stephanie Primary Care Provider Patrick Castillo Jr Unavailable ALLERGIES Allergen (clinical drug ingredient) Drug/Non Drug Allergy documented on EMR Reaction Allergy Type Onset Date Status Motrin Unknown Drug Allergy Active nitrofurantoin, macrocrystals / nitrofurantoin, monohydrate Macrobid Unknown Drug Allergy Active ibuprofen Ibuprofen Unknown Drug Allergy Active codeine Codeine Sulfate Unknown Drug Allergy A ctive aspirin Aspirin Unknown Drug Allergy Active Sulfa Unknown Drug Allergy Active REASON FOR REFERRAL No Information MEDICATIONS Medication SIG (Take, Route, Frequency, Duration) Notes Start Date End Date Status Fenofibrate 134 MG 1 capsule with a yolande l Orally Once a day for 30 day(s) Active Gabapentin 300 MG 2 tablet Orally twic e a day Active Livalo 4 MG 1 tablet Orally Once a day for 30 day(s) Active MiraLax (colon prep) 17 GM/SCOOP mixed with Gatorade or Crystal Light Orally begin at 5:00 p.m. the day before the procedure for 1 day 04/15/2024 Active Carvedilol 12.5 MG 1 tablet Orally BID Active Symbicort 160-4.5 MCG/ACT as directed Inhalation Active Vitamin D3 2000 UNIT 1 capsule Orally On ce a day for 30 day(s) Active Famotidine 40 MG 1 tablet Orally Once a day for 30 day(s) Active Cranberry 425 MG as directed Orally Active Ezetimibe 10 MG 1 tablet Orally Once a day for 30 day(s) Active IMMUNIZATIONS Vaccine Route Administration Date Status Comme nts Influenza Unknown 12/23/2018 Administered Influenza Unknown 03/27/2024 Administered SOCIAL HISTORY Tobacco Use: Social History Observation [...] W/U Status Risk SNOMED Code Notes Problem Colon cancer screening (Z12.11) Active confirmed 831372213 Problem Encounter for other preprocedural examination (Z01.818) Active confirmed 383446309 Problem Long-term current use of high risk medication other than anticoagulant (Z79.899) Active confirmed 023886807 Problem Personal history of colonic polyps (Z86.0100) Active confirmed 092197635 VITAL SIGNS Temperature 97.7 degrees Fahrenheit 04/15/2024 Blood pressure diastolic 00 mm Hg 04/15/2024 Height 68.5 in 04/15/2024 Blood pressure systolic 000 mm Hg 04/15/2024 Weight 223 lb 4 oz lbs 04/15/2024 BMI 33.45 kg/m2 04/15/2024 Encounters Encounter Location Date Provider Diagnosis [facility] [address] [facility] [address] [place] [phone] 04/15/2024 Patrick Lopez Jr Colon cancer screening [...] polyps (ICD-10 - Z86.0100) PLAN OF TREATMENT Future Test Test Name Order Date COLONOSCOPY 07/31/2013 COLONOSCOPY 01/10/2019 COLONOSCOPY 04/15/2024 Next Appt Details Provider Name:Patrick baugh Jr, 07/05/2024 07:30:00 AM, [address] [place] [address], [phone], Insurance Providers Payer Name Payer Address Payer Phone Subscriber Number Group Number Insured Name Patient Relationship to Insured Coverage Start Date Coverage End Date [facility] [address] [place] [phone] [id number] CRISTOPHER DIAZ Self - patient is the insured MEDICAL (GENERAL) HISTORY Medical History History ICD Code Colonoscopy 02/09, tubular adenoma, five -year followup chronic kidney disease stage IIIB COPD hypertension neuropathy elevated cholesterol mild pulmonary fibrosis Surgical History Surgery Date(Month/Year) hiatal hernia repair with vagotomy and o pyloroplasty bladder cncer status-post ileal pouch intestinal obstruction cholecystectomy traumatic right index finger amputation irght inguinal hernia repair elbow surgery shoulder surgery on the right Kidney stones removed right kidney taken out/ left kidney ds s tage 3 abdominal incisional hernia abdominal reconstruction Hospitalization History Reason Date(Month/Year) kidney infection
--- OUTSIDE RECORDS SUMMARY | 2024-06-07 11:12 | XMS_ITS | Clinical Summary ---
Author Organization [facility] ity Address [address] [place] [address] Care Team Providers Care Sales Development Director Name Role Phone Unavailable Primary Care Provider Unavailabl e Social History Tobacco Use Types Packs/Day Years Used Date Smoking Tobacco: Never Assessed Sex and Gender Information Value Date Recorded Sex Assigned at Not on file Legal Sex Male 8:45 PM EST Gender Identity Not on file Sexual Orientation Not on file Plan of Treatment Health Maintenance Due Date Last Done Comments DTaP,Tdap,and Td Vaccines (1 - Tdap) 1970 Pneumococcal Vaccine: 50+ Ye ars (1 of 1 - PCV) 2001 Zoster Vaccines (1 of 2) 2001 Abdominal Aortic Aneurysm (A AA) Screen 03/26/2022 Cholesterol Screening (Lipid Panel) 03/26/2022 Colorectal Cancer Screening: Colonoscopy 03/26/2022 Depression Screening 03/26/2022 Falls Risk Assessment 03/26/2022 Hepatitis C Screening 03/26/2022 Social Influencers of Health Screening 03/26/2022 COVID-19 Vaccine ( - 2023-2 5 season) 2023 Influenza Vaccine (#1) 2023 RSV Immunization Patients 60 + Years Old (1 - 1-dose 75+ series) 2026 HIB Vaccines Aged Out No longer eligi ble based on patient's age to complete this topic HPV Vaccines Aged Out No longer eligi ble based on patient's age to complete this topic Hepatitis A Vaccines Aged Out No long er eligible based on patient's age to complete this topic Hepatitis B Vaccines Aged Out No long er eligible based on patient's age to complete this topic IPV Vaccines Aged Out No longer eligi ble based on patient's age to complete this topic MMR Vaccines Aged Out No longer eligi ble based on patient's age to complete this topic Meningococcal ACWY Vaccine Aged Out N o longer eligible based on patient's age to complete this topic Meningococcal B Vacine Aged Out No lo nger eligible based on patient's age to complete this topic RSV Immunization Patients Un eileen 20 months Aged Out No longer eligible b ased on patient's age to complete this topic Varicella Vaccines Aged Out No longer eligible based on patient's age to complete this topic
--- NOTE | 2024-07-03 13:51 | P.CONAN_ITS ---
Documented by User: Lanny Fong NP 07/03/24 13:52 HPI - Anesthesia Eval Consult details Narrative: 74yo M for Colonoscopy PMFSH Active Problems Active Problems: All Active Problems Hx of bladder cancer (Acute) Polyneuropathy (Acute) Stage 3b chronic kidney disease (Acute) Absent kidney (Acute) Anemia in chronic kidney disease (Acute) Generalized neuropathy (Acute) Obesity (BMI 30.0-34.9) (Acute) Impaired fasting glucose (Acute) COPD (chronic obstructive pulmonary disease) (Acute) Plantar fasciitis (Acute) Recurrent nephrolithiasis (Acute) Intolerance to BiPAP/CPAP (Acute) Obstructive sleep apnea (Acute) Psoriasis (Acute) Tubular adenoma of colon (Acute) Statin intolerance (Acute) Mixed dyslipidemia (Acute) Past Medical History Medical History History of kidney stones Bowel obstruction Pulmonary fibrosis Elevated cholesterol Neuropathy HTN (hypertension) Chronic right shoulder pain Excessive sleepiness Fatigue History of heartburn Hx of bladder cancer Polyneuropathy Stage 3b chronic kidney disease Absent kidney Anemia in chronic kidney disease Obesity (BMI 30.0-34.9) Impaired fasting glucose COPD (chronic obstructive pulmonary disease) Plantar fasciitis Recurrent nephrolithiasis Intolerance to BiPAP/CPAP Obstructive sleep apnea Psoriasis Tubular adenoma of colon Anxiety disorder Statin intolerance Mixed dyslipidemia Family History Family History Father HTN (hypertension) Diabetes mellitus Dyslipidemia CAD (coronary artery disease) Aneurysm Mother CAD (coronary artery disease) Diabetes mellitus Dyslipidemia HTN (hypertension) COPD (chronic obstructive pulmonary disease) Brother History of heart attack Son No problems noted. Daughter No problems noted. Daughter No problems noted. Surgical History Surgical History (Updated 07/03/24 @ 14:07 by Divya Ashford RN) History of nephrectomy, right Hx of shoulder surgery Hx of elbow surgery History of urostomy History of vagotomy History of hernia repair History of surgery on arm Hx of cholecystectomy Social History Social History Housing: House Are you a primary senior care manager to a significant other at home: No Do you presently have visiting nurse or other home services: No Alcohol intake: never Patient Tobacco Use Status: Never used Tobacco e-Cigarette/Vaping Use: Never Used Second Hand Smoke Exposure: No Use of substances other than those prescribed or required for medical reasons: No Have you been hit, kicked, punched, or otherwise hurt by someone within the past year? If so, by whom?: No Are you DNR?: No Advance Directives: No Advance Directives Information Provided: Yes Recently lost weight without trying: No Nutrition Risks: No Nutritional Risk Poor oral hygiene: No service: Yes Current occupational status: retired Current occupation: right hand Cognitive needs: No Hearing needs: No Vision needs: Yes Meds Allergies Allergy/AdvReac Type Severity Reaction Status Date / Time codeine Allergy Unknown Verified 07/05/24 06:49 nitrofurantoin Allergy Unknown Verified 07/05/24 06:49 [From Macrobid] atorvastatin [Lipitor] AdvReac Unknown muscle pain Verified 07/05/24 06:49 pravastatin AdvReac Unknown muscle pain Verified 07/05/24 06:49 rosuvastatin [Crestor] AdvReac Unknown muscle pain Verified 07/05/24 06:49 simvastatin AdvReac Unknown muscle pain Verified 07/05/24 06:49 aspirin AdvReac Abdominal Verified 07/05/24 06:49 Pain ibuprofen AdvReac Abdominal Verified 07/05/24 06:49 Pain Sulfa (Sulfonamide AdvReac stomach Verified 07/05/24 06:49 Antibiotics) ache Home Medications ?Medication ?Instructions ?Recorded ?Confirmed ?Last Taken ?Type budesonide-formoterol HFA 160 2 puff inhalation BID 03/11/20 07/05/24 Unknown History mcg-4.5 mcg/actuation aerosol inhaler (Symbicort) cholecalciferol (vitamin D3) 50 50 mcg PO DAILY 03/11/20 07/05/24 Unknown History mcg (2,000 unit) capsule carvedilol 12.5 mg tablet 12.5 mg PO BID 01/19/21 07/05/24 07/05/24 History cranberry fruit concentrate 500 mg 500 mg PO BID 11/01/21 07/05/24 Unknown History capsule (Cran-Max) gabapentin 300 mg capsule 300 mg PO BID 07/03/24 07/05/24 Unknown History pitavastatin calcium 4 mg tablet 4 mg PO DAILY 07/03/24 07/05/24 Unknown History (Livalo) Exam Pertinent Lab Results Pertinent Lab Results: Laboratory Tests 06/18/24 06:23 WBC 5.3 Hgb 12.6 L Hct 39.1 L Plt Count 243 Sodium 142 Potassium 4.9 Chloride 111 H Carbon Dioxide 22 BUN 29 H Creatinine 1.88 H Assessment and Plan Assessment Anesthesia Assessment: Chart Reviewed Documented by User: Shine Ray MD 07/05/24 07:26 [facility] Past Medical History Medical History History of kidney stones Bowel obstruction Pulmonary fibrosis Elevated cholesterol Neuropathy HTN (hypertension) Chronic right shoulder pain Excessive sleepiness Fatigue History of heartburn Hx of bladder cancer Polyneuropathy Stage 3b chronic kidney disease Absent kidney Anemia in chronic kidney disease Obesity (BMI 30.0-34.9) Impaired fasting glucose COPD (chronic obstructive pulmonary disease) Plantar fasciitis Recurrent nephrolithiasis Intolerance to BiPAP/CPAP Obstructive sleep apnea Psoriasis Tubular adenoma of colon Anxiety disorder Statin intolerance Mixed dyslipidemia Family History Family History Father HTN (hypertension) Diabetes mellitus Dyslipidemia CAD (coronary artery disease) Aneurysm Mother CAD (coronary artery disease) Diabetes mellitus Dyslipidemia HTN (hypertension) COPD (chronic obstructive pulmonary disease) Brother History of heart attack Son No problems noted. Daughter No problems noted. Daughter No problems noted. Family history of problems with anesthesia: No Surgical History Surgical History (Updated 07/03/24 @ 14:07 by Divya Ashford RN) History of nephrectomy, right Hx of shoulder surgery Hx of elbow surgery History of urostomy History of vagotomy History of hernia repair History of surgery on arm Hx of cholecystectomy History of Problems with Anesthesia: No Social History Social History Housing: House Are you a primary senior care manager to a significant other at home: No Do you presently have visiting nurse or other home services: No Alcohol intake: never Patient Tobacco Use Status: Never used Tobacco e-Cigarette/Vaping Use: Never Used Second Hand Smoke Exposure: No Use of substances other than those prescribed or required for medical reasons: No Have you been hit, kicked, punched, or otherwise hurt by someone within the past year? If so, by whom?: No Are you DNR?: No Advance Directives: No Advance Directives Information Provided: Yes Recently lost weight without trying: No Nutrition Risks: No Nutritional Risk Poor oral hygiene: No service: Yes Current occupational status: retired Current occupation: right hand Cognitive needs: No Hearing needs: No Vision needs: Yes Meds Allergies Allergy/AdvReac Type Severity Reaction Status Date / Time codeine Allergy Unknown Verified 07/05/24 06:49 nitrofurantoin Allergy Unknown Verified 07/05/24 06:49 [From Macrobid] atorvastatin [Lipitor] AdvReac Unknown muscle pain Verified 07/05/24 06:49 pravastatin AdvReac Unknown muscle pain Verified 07/05/24 06:49 rosuvastatin [Crestor] AdvReac Unknown muscle pain Verified 07/05/24 06:49 simvastatin AdvReac Unknown muscle pain Verified 07/05/24 06:49 aspirin AdvReac Abdominal Verified 07/05/24 06:49 Pain ibuprofen AdvReac Abdominal Verified 07/05/24 06:49 Pain Sulfa (Sulfonamide AdvReac stomach Verified 07/05/24 06:49 Antibiotics) ache Home Medications ?Medication ?Instructions ?Recorded ?Confirmed ?Last Taken ?Type budesonide-formoterol HFA 160 2 puff inhalation BID 03/11/20 07/05/24 Unknown History mcg-4.5 mcg/actuation aerosol inhaler (Symbicort) cholecalciferol (vitamin D3) 50 50 mcg PO DAILY 03/11/20 07/05/24 Unknown History mcg (2,000 unit) capsule carvedilol 12.5 mg tablet 12.5 mg PO BID 01/19/21 07/05/24 07/05/24 History cranberry fruit concentrate 500 mg 500 mg PO BID 11/01/21 07/05/24 Unknown History capsule (Cran-Max) gabapentin 300 mg capsule 300 mg PO BID 07/03/24 07/05/24 Unknown History pitavastatin calcium 4 mg tablet 4 mg PO DAILY 07/03/24 07/05/24 Unknown History (Livalo) Exam Airway Mallampati Class: I TM Dist: <=3cm Neck ROM: Full Denture: Upper and Lower Heart: ok Lungs: ok Assessment and Plan Assessment Anesthesia Assessment: Anesthesia Plan Discussed Final Anesthetic Review Family History of Problems with Anesthesia: No History of Problems with Anesthesia: No NPO: Yes ASA Class: III Final Preanesthetic Review: No Changes in Pt Med Stat, Meds/Allgs Chart Reviewed, Consent Obtained/Reviewed and Anes Risks/Benef Reviewed Patient Risk: Intermediate Procedure Risk: Low Anesthetic Plan Anesthetic Plan: MAC: and Agree w/ Assess. and Plan Disposition: Standard PACU
[2024-07-03 14:17] VITALS: BMI 33.4
[2024-07-05 06:58] VITALS: BP 151/80; PULSE 62; RESP 16; TEMP 36.4; O2SAT 97; BMI 33.4
[2024-07-05] MEDS: Lactated Ringers 1,000 ML 100 ML IVCONT (07:12)
--- NOTE | 2024-07-05 07:26 | MHC.SHP ---
Pre-Procedural Eval Section A - 24 Hr Update-Section A only Date of Service: 07/05/24 Section B - Complete if H&P > 30 days Chief Complaint: screening Details of Present Illness: asee H&P no changes Relevant Family History (Specify if Yes): No Relevant Social History: None Present Medications: see Short Stay Collaborative assessment Medical History: No relevant PMH History of Previous Operations: No relevant previous surgery Allergies: Allergies Allergy/AdvReac Type Severity Reaction Status Date / Time codeine Allergy Unknown Verified 07/05/24 06:49 nitrofurantoin Allergy Unknown Verified 07/05/24 06:49 [From Macrobid] atorvastatin [Lipitor] AdvReac Unknown muscle pain Verified 07/05/24 06:49 pravastatin AdvReac Unknown muscle pain Verified 07/05/24 06:49 rosuvastatin [Crestor] AdvReac Unknown muscle pain Verified 07/05/24 06:49 simvastatin AdvReac Unknown muscle pain Verified 07/05/24 06:49 aspirin AdvReac Abdominal Verified 07/05/24 06:49 Pain ibuprofen AdvReac Abdominal Verified 07/05/24 06:49 Pain Sulfa (Sulfonamide AdvReac stomach Verified 07/05/24 06:49 Antibiotics) ache Review of Systems Sugical H&P ROS: Negative: Constitution, Cardiovascular, Respiratory, Neurological, Psychiatric, Hem-Onc, Allergic/Immunologic, Gastrointestinal, Genitourinary, Musculoskeletal, Integumentary, Endocrine and Eyes/Ears/Nose/Throat Exam Surgical H&P Exam: Normal: HEENT, Normal: Heart, Normal: Lungs, Normal: Extremities, Normal: Abdomen, Normal: Skin and Normal: Neurological Plan Diagnosis/Plan: Unchanged I have reviewed the history and physical and performed a pertinent physical examination on my patient. No changes have occurred unless specified. Time Spent With Patient Time: Total time managing care of this patient today ____ minutes.
[2024-07-05 08:09] VITALS: BP 116/55; PULSE 68; RESP 17; TEMP 36.7; O2SAT 96
--- NOTE | 2024-07-05 08:18 | P.BOP_ITS ---
Brief Operative Note Date of Service: 07/05/24 Pre-op diagnosis: screening Post-op diagnosis: same Procedure: colo Surgeon: Patrick Lopez MD Anesthesia: MAC Was an Financial Analysis Manager used for this Procedure?: No Estimated blood loss (mL): 2 Pathology: other Condition: stable Disposition: PACU
[2024-07-05 08:24] VITALS: BP 119/56; PULSE 65; RESP 17; TEMP 36.6; O2SAT 99
--- NOTE | 2024-07-05 10:16 | OP_ITS ---
DATE OF SERVICE: 07/05/2024 SURGEON: Patrick Lopez MD INDICATIONS: Colon cancer screening and prior history of adenomatous colon polyps. PREOPERATIVE DIAGNOSIS: POSTOPERATIVE DIAGNOSIS: PROCEDURE PERFORMED: Colonoscopy to the terminal ileum with snare polypectomy. ESTIMATED BLOOD LOSS: COMPLICATIONS: ANESTHESIA: Monitored anesthesia care. ASSISTANTS: SPECIMENS: DESCRIPTION OF PROCEDURE: A history and physical was performed. The risks and benefits of the procedure were explained to the patient. Informed consent was obtained. The patient was placed in the left lateral decubitus position. A digital rectal exam was performed and was found to be normal. The Olympus pediatric video colonoscope was introduced into the rectum and advanced to the cecum. The cecum was identified by transillumination, palpation, and identification of ileocecal valve. Examination was performed. The scope was removed. He tolerated the procedure well and was returned to the recovery area in stable condition. FINDINGS: The terminal ileum was examined and appeared normal. The visualized colonic mucosa was normal. The quality of the prep was good. Three polyps were identified and removed using cold snare, all measured less than 10 mm. These were located at 65 cm, 30 cm, and 20 cm. Retroflexed examination showed some moderate-sized internal hemorrhoids. IMPRESSION: Colon polyps. RECOMMENDATION: Follow up the biopsy results. MD TAMMIE Garcia/ADIEL / [id number]
== END 2024-07-05 08:40 | disposition home or self-care (01) ==
PROVIDERS: PCP Internal Medicine; Visit Provider Internal Medicine Gastroenterology
PROC: 0DJD8ZZ Inspection of Lower Intestinal Tract, Via Natural or Artificial Opening Endoscopic (ICD-10-PCS; CPT 45378; principal; 2024-07-05 07:30)
DX: Z12.11 Encounter for screening for malignant neoplasm of colon (principal); Z86.0101 Personal history of adenomatous and serrated colon polyps; Z83.719 Family history of colon polyps, unspecified; D12.4 Benign neoplasm of descending colon; D12.5 Benign neoplasm of sigmoid colon; K64.8 Other hemorrhoids; I12.9 Hypertensive chronic kidney disease with stage 1 through stage 4 chronic kidney disease, or unspecified chronic kidney disease; N18.32 Chronic kidney disease, stage 3b; Z90.5 Acquired absence of kidney; Z93.6 Other artificial openings of urinary tract status; Z85.51 Personal history of malignant neoplasm of bladder; Z93.2 Ileostomy status; Z87.442 Personal history of urinary calculi; J44.9 Chronic obstructive pulmonary disease, unspecified; J84.10 Pulmonary fibrosis, unspecified; G62.9 Polyneuropathy, unspecified; E78.00 Pure hypercholesterolemia, unspecified; Z79.899 Other long term (current) drug therapy; Z90.49 Acquired absence of other specified parts of digestive tract; Z98.890 Other specified postprocedural states
CPT/HCPCS: 45385; 88305; J2003; J2704

== ENCOUNTER 2024-12-31 12:40 | Outpatient (AMB) | payer MEDICARE, SELFPAY ==
--- OUTSIDE RECORDS SUMMARY | 2024-07-05 03:30 | XMS_ITS ---
Author Organization [facility] Address [address] [place] [phone] Care Team Providers Care Attendant Campground Name Role Phone Gary DUMAS, Stephanie Primary Care Provider Patrick Castillo Jr REASON FOR VISIT screening Encounters Encounter Location Date Provider Diagnosis [facility] [place] [address] [place] [phone] 07/05/2024 Patrick Lopez Jr Colon cancer screening [...] Information Progress Notes * CRISTOPHER DIAZDOB:1950 ([age] yo M)Acc No.[id number]:07/05/2024 COLON WITH MAC Patient: CRISTOPHER NAIR Provider: Megha Lopez MD :1950 A ge:74 Y S ex:Male Date:07/05/2024 Address[address] [place] Pcp:Stephanie Vega MD Subjective: * Chief Complaints: * 1 . Screening. * Medical History: Objective: * Vitals: Assessment: * Assessment: 1. C olon cancer screening - Z12.11 (Primary) 2 . P ersonal history of adenomatous and serrated colon polyps - Z86.0101 3 . C olon polyps - K63.5 ? Plan: * Treatment: * Procedure Codes: 4 5385 LESION REMOVAL COLONOSCOPY, 0529F INTRVL 3+YRS PTS CLNSCP DOCD * * The named appointment provid er may or may not be the originator of this progress note, and it is not deemed complete until electronically signed by the appointment provider. Sign off status: Pending * Provider: Megha Lopez MD Date: 0 07/05/2024 Generated for Toby hogan/Linda/Sebitting on: 0 12/31/2024 03:00 PM EDT
[2024-12-31 12:49] VITALS: BP 124/68; PULSE 55; RESP 16; TEMP 36.7; O2SAT 95; BMI 34.2
--- NOTE | 2024-12-31 12:49 | MHC.PC.OV ---
Vital Signs 12/31/24 12:49 Height 5 ft 8.5 in Weight 228 lb BMI 34.2 BP 124/68 Blood Pressure Location Rt brachial Position Sitting Respiration 16 Pulse 55 Pulse Source Pulse Oximeter Temp 98.0 F Temp Source Oral Pulse Oximetry (%) 95 Oxygen Delivery Method Room Air Intake Visit Reasons: Cataracts; R eye 9/15 L eye 02/10 Intake Note: Pt is here today for his pre-op for cataract surgery Rt eye 15 & Lt eye 02/10 Dr. Goodman Allergies codeine Allergy (Verified 12/31/24 13:30) Unknown nitrofurantoin (From Macrobid) Allergy (Verified 12/31/24 13:30) Unknown atorvastatin (Lipitor) Adverse Reaction (Unknown, Verified 12/31/24 13:30) muscle pain pravastatin Adverse Reaction (Unknown, Verified 12/31/24 13:30) muscle pain rosuvastatin (Crestor) Adverse Reaction (Unknown, Verified 12/31/24 13:30) muscle pain simvastatin Adverse Reaction (Unknown, Verified 12/31/24 13:30) muscle pain aspirin Adverse Reaction (Verified 12/31/24 13:30) Abdominal Pain ibuprofen Adverse Reaction (Verified 12/31/24 13:30) Abdominal Pain Sulfa (Sulfonamide Antibiotics) Adverse Reaction (Verified 12/31/24 13:30) stomach ache Medication List - Last Reconciled 12/31/24 by Stephanie Vega MD budesonide-formoterol 160-4.5 mcg/actuation (Symbicort) 2 puffs inhalation BID carvedilol 12.5 mg PO BID cholecalciferol (vitamin D3) 50 mcg PO DAILY cranberry fruit concentrate (Cran-Max) 500 mg PO BID ezetimibe 10 mg PO DAILY famotidine 40 mg PO DAILY fenofibrate micronized 134 mg PO DAILY gabapentin 300 mg PO BID Tobacco use date assessed: 12/31/24 Fall risk assessment: No Falls in past year Last assessed Fall Risk: 12/31/24 Dental Screening Dental Screen Date: 12/31/24 Did you have a dental visit in the last 12 months?: No Did you have a dental problem in the last 6 months where you did not have access to dental care?: No Was dental information given to patient?: Patient declined HPI Cataracts; R eye 15 L eye 02/10 HPI Details 74-year-old male with history of chronic kidney disease stage IIIB and anemia of chronic disease, followed by Dr. Garza, has recurrent nephrolithiasis with history of bladder cancer status post hysterectomy with urostomy bag in place, followed by Dr. Rhoades, and has obstructive sleep apnea and COPD intolerant of CPAP BiPAP followed by Dr. Jenkins, here today for preoperative exam for cataract surgery scheduled fo01/06/2025 OD, and on 01/[address] Goodman. He has been feeling well, with no acute exacerbations of his COPD. Blood pressure well controlled on present treatment with carvedilol 12.5 mg twice a day, and lipids fairly well controlled except for elevated triglycerides, on ezetimibe 10 mg daily and fenofibrate 134 mg daily. Peripheral neuropathy symptoms tolerable on gabapentin taken 300 mg 1 capsule twice a day PFSH Medical History History of kidney stones Bowel obstruction Pulmonary fibrosis Elevated cholesterol Neuropathy HTN (hypertension) Chronic right shoulder pain Excessive sleepiness Fatigue History of heartburn Hx of bladder cancer Polyneuropathy Stage 3b chronic kidney disease Absent kidney Anemia in chronic kidney disease Obesity (BMI 30.0-34.9) Impaired fasting glucose COPD (chronic obstructive pulmonary disease) Plantar fasciitis Recurrent nephrolithiasis Intolerance to BiPAP/CPAP Obstructive sleep apnea Psoriasis Tubular adenoma of colon Anxiety disorder Statin intolerance Mixed dyslipidemia Surgical History History of nephrectomy, right Hx of shoulder surgery Hx of elbow surgery History of urostomy History of vagotomy History of hernia repair History of surgery on arm Hx of cholecystectomy Family History Father HTN (hypertension) Diabetes mellitus Dyslipidemia CAD (coronary artery disease) Aneurysm Mother CAD (coronary artery disease) Diabetes mellitus Dyslipidemia HTN (hypertension) COPD (chronic obstructive pulmonary disease) Brother History of heart attack Son No problems noted. Daughter No problems noted. Daughter No problems noted. Social History Housing: House Are you a primary medicare specialist to a significant other at home: No Do you presently have visiting nurse or other home services: No Alcohol intake: never Patient Tobacco Use Status: Never used Tobacco e-Cigarette/Vaping Use: Never Used Second Hand Smoke Exposure: No service: Yes Current occupational status: retired Current occupation: right hand Cognitive needs: No Hearing needs: No Vision needs: Yes Questionnaire PHQ-9 Over the last 2 weeks, how often have you been bothered by any of the following problems? 1. Little interest or pleasure in doing things: not at all 2. Feeling down, depressed, or hopeless: not at all 3. Trouble falling or staying asleep, or sleeping too much: more than half the days 4. Feeling tired or having little energy: not at all 5. Poor appetite or overeating: not at all 6. Feeling bad about yourself - or that you are a failure or have let yourself or your family down: not at all 7. Trouble concentrating on things, such as reading the newspaper or watching television: not at all 8. Moving or speaking so slowly that other people could have noticed. Or the opposite - being so fidgety or restless that you have been moving around a lot more than usual: not at all 9. Thoughts that you would be better off or of hurting yourself in some way: not at all Total score: 2 Depression Screening Interpretation: Negative Depression Screening Done: Yes Source: Developed by Drs. Joaquin Hansen, Lillian Cullen, Melquiades Gomez and colleagues, with an educational chela from [employer]. Thrive Questionnaire Date Thrive assessed: 06/20/24 I am a: Patient What is your living situation today?: I have a steady place to live Within the past 12 months, did the food you bought not last and you didn't have the money to get more?: Never true Within the past 12 months, did you worry whether your food would run out before you got money to buy more?: Never true Do you have trouble paying for medicines?: No Do you have trouble getting transportation to medical appointments?: No Do you have trouble paying your heating and electricity bill?: No Do you have trouble taking care of your child, family member or friend?: No Do you have trouble with day-to-day activities such as bathing, preparing meals, shopping, managing finances, etc.?: No Are you currently unemployed and looking for a job?: No Are you interested in more education?: No Please select the resources that you would like help with: None Currently or been in a relationship where the following occur: No concerns reported THRIVE Score: 0 AUDIT C Alcohol Use Questionnaire (AUDIT-C) 1. How often do you have a drink containing alcohol?: Never 2. How many drinks containing alcohol do you have on a typical day when you are drinking?: 1 or 2 3. How often do you have six or more drinks on one occasion?: Never Total Score: 0 ALVERTO-7 AMB Questionnaire ALVERTO-7 Date ALVERTO - 7 assessed: 06/26/24 Feeling nervous, anxious, or on edge: 0 = Not at all Not being able to stop or control worryin = Not at all Worrying too much about different things: 0 = Not at all Trouble relaxin = Not at all Being so restless that it is hard to sit still: 0 = Not at all Becoming easily annoyed or irritable: 0 = Not at all Feeling afraid as if something awful might happen: 0 = Not at all Total ALVERTO-7 score (0-4 normal; 5-9 mild; 10-14 moderate; 15-21 severe): 0 Source: Developed by Drs. Joaquin Hansen, Lillian Cullen, Melquiades Gomez and colleagues, with an educational chela from [employer]. Review of Systems Const Denies body aches, Denies fatigue, Denies fever(s), Denies headache(s) and Denies weakness Eyes Reports blurry vision, Denies eye discharge and Denies itchy eyes ENT Denies dizziness, Denies headache(s), Denies nasal congestion and Denies nasal discharge Card Denies chest pain, Denies lightheadedness, Denies palpitations, Denies dyspnea and Denies dyspnea on exertion Resp Denies chest congestion, Denies pain with cough, Denies dyspnea, Denies dyspnea on exertion and Denies wheezing GI Denies abdominal pain, Denies change in bowel habits and Denies heartburn Details: Has urostomy bag Musc Reports no additional complaints Skin/Breast Denies lesions and Denies rash Neuro Denies dizziness, Denies headache(s) and Denies weakness Psych Reports no additional complaints Endo Denies fatigue, Denies polydipsia, Denies polyuria and Denies palpitations Porfirio/Lymph Denies easy bruising Aller/Immun Denies itchy eyes, Denies seasonal rhinorrhea and Denies wheezing Physical exam (Primary Care) Vital Signs: Last Vital Signs Temp 98.0 F 12/31/24 12:49 Pulse 55 12/31/24 12:49 Resp 16 12/31/24 12:49 BP 124/68 12/31/24 12:49 Pulse Ox 95 12/31/24 12:49 Oxygen Delivery Method Room Air 12/31/24 12:49 BMI result Body Mass Index 34.2 Tobacco/Smoking Status: Tobacco use Status Tobacco use date assessed 12/31/24 12/31/24 12:52 Patient Tobacco Use Status Never used Tobacco 12/31/24 12:52 e-Cigarette/Vaping Use Never Used 12/31/24 12:52 PHQ-9: PHQ-9 Score PHQ-9: Total score 2 12/31/24 13:38 Depression Screening Interpretation: Negative Thrive Assessment: Date of Thrive Assessment Date Thrive assessed 06/20/24 12/31/24 12:52 Currently or been in a relationship where the following occur: No concerns reported Const General: comfortable, no acute distress and alert Orientation/consciousness: patient oriented x3 HENMT Mouth: Normal oral and palatal mucosa present, oropharynx normal and moist mucous membranes Eyes General: appearance normal, both eyes and all related structures Neck Neck: Yes full ROM, Yes no lymphadenopathy and Yes supple Resp Effort & Inspection: normal respiratory effort and able to speak in complete sentences Cardio Rate: regular rate Rhythm: regular rhythm Heart sounds: S1 normal heart sound present and S2 normal heart sound present GI Palpation (GI): Soft to palpation, nontender and no masses Auscultation: normal bowel sounds Other: Urostomy bag in right mid quadrant, draining clear yellow urine General: Yes no CVA tenderness Back/Spine/Pelvis Back: no CVA tenderness and No back tenderness Neuro General: patient oriented x3, gait normal, tone normal, moves all extremities, Normal light touch and pain sensation and no focal motor deficits Extrem General: Yes full ROM, Yes no joint enlargement, Yes no pedal edema and Yes normal gait Psych Appearance: grossly normal and well kempt Mental Status: mental status grossly normal Speech and movement: Normal speech and movement present Affect: normal affect Coding Level of Care Code Est Pt Level 4 (27886) Diagnoses Preoperative examination Z01.818 Mixed dyslipidemia E78.2 Impaired fasting glucose R73.01 Stage 3b chronic kidney disease N18.32 Anemia in stage 3b chronic kidney disease N18.32; D63.1 Chronic kidney disease stage: stage 3 (moderate) Chronic kidney disease stage 3 subtype: stage 3b (GFR 30-44) Polyneuropathy G62.9 COPD (chronic obstructive pulmonary disease) J44.9 Assessment & Plan Assessment & Plan (1) Preoperative examination: Code(s): Z01.818 - Encounter for other preprocedural examination Plan: Preoperative exam was unremarkable, blood pressure stable controlled on present treatment. Patient not on any anticoagulants. He has a low cardiac risk index for proposed surgery (2) Mixed dyslipidemia: Code(s): E78.2 - Mixed hyperlipidemia Category: Medical Plan: Continue ezetimibe and fenofibrate micronized , reinforced importance of following a low-cholesterol diet (3) Impaired fasting glucose: Code(s): R73.01 - Impaired fasting glucose Category: Medical Plan: Your previous fasting blood sugars were elevated above 100 mg/dL. Impaired glucose metabolism increases the risk for developing diabetes mellitus type 2, as well as heart attack and stroke later on. Lifestyle changes that promotes weight loss, healthy eating habits, and regular exercise are important, and can prevent the progression to diabetes (4) Stage 3b chronic kidney disease: Code(s): N18.32 - Chronic kidney disease, stage 3b Category: Medical Plan: Renal function has been stable, followed by Nephrology (5) Anemia in chronic kidney disease: Code(s): N18.9 - Chronic kidney disease, unspecified; D63.1 - Anemia in chronic kidney disease Category: Medical Qualifiers: Chronic kidney disease stage: stage 3 (moderate) Chronic kidney disease stage 3 subtype: stage 3b (GFR 30-44) Qualified Code(s): N18.32 - Chronic kidney disease, stage 3b; D63.1 - Anemia in chronic kidney disease Plan: Normocytic normochromic anemia present, no active bleeding stressed importance of good control of hypertension and lipids (6) Polyneuropathy: Code(s): G62.9 - Polyneuropathy, unspecified Category: Medical Plan: continue gabapentin (7) COPD (chronic obstructive pulmonary disease): Comment: sees Dr Jenkins Code(s): J44.9 - Chronic obstructive pulmonary disease, unspecified Category: Medical Plan: continue Symbicort
--- OUTSIDE RECORDS SUMMARY | 2024-12-31 15:01 | XMS_ITS | Clinical Summary ---
Author Organization [facility] Address 100 [facility] 20 0 [place] [address] Phone Care Team Providers Care Cardiac Rehabilitation Program Director Name Role Phone Mahnaz Vega MD Primary Care Provider +1- [phone] Allergies Active Allergy Reactions Criticality Noted Date Comments Acetaminophen-Codeine Other (see comments) 09/23 Aspirin Other (see comments) 10/12/2020 Other reaction(s): SENSITIVE Codeine 07/12/2021 Other reaction(s): SENSITIVE Ibuprofen Other (see comments) 10/12/2020 Other reaction(s): SENSITIVE Nitrofurantoin Other (see comments) 10/12/2020 Sulfa Antibiotics Other (see comments) 10/13/19 Other reaction(s): TOLD BY DOCTOR I HAD REACTION NOT SURE WHAT HAPPENED TOLD NOT TO TAKE Medications budesonide-formo terol (SYMBICORT) 160-4.5 MCG/ACT inhaler Comments: [...] 1 HOUR BEFORE A MEAL 3 Active ezetimibe (ZETIA) 10 MG tablet Take 10 mg by mouth 1 (one) time each day 4 Active carvedilol (COREG) 12.5 MG tablet Take 1 tablet (12.5 mg total) by mouth in the morning and 1 tablet (12.5 mg total) in the evening. Take with meals. 180 tablet 3 5 Active Active Problems Problem Noted Date Diagnosed [...] 10/12/2020 07/05/2023 Renal stone 10/12/2020 07/10/2022 Immunizations Immunization Administration Dates Next Due Influenza Split High [...] Sign Reading Time Taken Comments Blood Pressure 169/79 07/11/2024 8:04 AM EDT Pulse 54 07/11/2024 8:04 AM EDT Temperature - - Respiratory Rate - - Oxygen Saturation 97% 07/11/2024 8:04 AM EDT Inhaled Oxygen Concentration - - Weight 106 kg (234 lb) 07/11/2024 8:04 AM EDT Height 172.7 cm (5' 8 ) 07/11/2024 8:04 AM EDT Body Mass Index 35.58 07/11/2024 8:04 AM EDT Plan of Treatment Upcoming Encounters Date Type Department Care Team (Late st Contact Info) Description 01/11/2025 Orders Only [facility] [address] [phone] Chavo Ronquillo MD [address] [place] [phone] Stage 3b chronic kidney disease (HCC); Hyperkalemia; Chronic metabolic acidosis; Bladder cancer (HCC); Absent kidney; Anemia in chronic kidney disease; Hypertension; Localized edema; Personal history of kidney stones; Proteinuria, not otherwise specified; Renal tubular disorder; Urostomy present (HCC); Vitamin D deficiency, not otherwise specified 01/15/2025 8:00 AM EDT Office Visit [facility] [address] [phone] Chavo Ronquillo MD [address] [place] [phone] Health Maintenance Due Date Last Done Comments Colorectal Cancer Screening: Annual FOBT 01/21/2000 Colorectal Cancer Screening: Colonoscopy 01/21/2000 Colorectal Cancer Screening: Sigmoidoscopy 01/21/2000 Influenza Vaccine (#1) 2024 9, 01/01/2018, 01/17/2017 Pneumococcal Vaccine: 50+ Years Completed 04/25/2018, 04/24/2017 Pneumococcal Vaccine: Peds ( 0 to 5 Years) and At-Risk Patients (6 to 49 Years) Discontinued 04/25/2018, 04/24/2017 Hepatitis B Vaccine Aged Out No longe r eligible based on patient's age to complete this topic Insurance Care Teams Cardiac Rehabilitation Program Director Relationship Specialty Start Date End Date Mahnaz Vega MD [address] [place] [address] PCP - General 05/04/20
--- OUTSIDE RECORDS SUMMARY | 2024-12-31 15:01 | XMS_ITS | Encounter Summary ---
Author Organization [facility] Address [address] [facility] [address] [place] [address] Phone Care Team Providers Care Ornamenter Hand Name Role Phone Mahnaz Vega MD Primary Care Provider +1- [phone] Reason for Visit * Reason Comments Med Refill Encounter Details Date Type Department Care Team ([facility] st Contact Info) Description 07/20/2020 Refill [facility] [address] [place] [phone] Chavo Ronquillo MD [address] [facility] 204 [place] [address] Social History Tobacco Use Types [...] 01/11/2025 Orders Only [facility] [address] [phone] Chavo Ronquillo MD [address] [place] [phone] Stage 3b chronic kidney disease (HCC); Hyperkalemia; Chronic metabolic acidosis; Bladder cancer (HCC); Absent kidney; Anemia in chronic kidney disease; Hypertension; Localized edema; Personal history of kidney stones; Proteinuria, not otherwise specified; Renal tubular disorder; Urostomy present (HCC); Vitamin D deficiency, not otherwise specified 01/15/2025 8:00 AM EDT [facility] [address] [phone] Chavo Ronquillo MD [address] [place] [phone] documented as of this encounter Visit Diagnoses Not on filedocumented in this encounter Care Teams Ornamenter Hand Relationship Specialty Start Date End Date Mahnaz Vega MD [address] [place] [address] PCP - General 05/04/20 documented as of this encounter
--- OUTSIDE RECORDS SUMMARY | 2024-12-31 15:01 | XMS_ITS | Patient Health Record ---
Author Organization [facility] Address [address] [place] [address] Care Team Providers Care Business Center Attendant Name Role Phone Gary DUMAS, Stephanie Primary Care Provider Patrick Castillo Jr Unavailable [phone] Allergies Allergen (clinical drug ingredient) Drug/Non Drug Allergy documented on EMR Reaction Allergy Type Onset Date Status Motrin Unknown Drug Allergy Active nitrofurantoin, macrocrystals / nitrofurantoin, monohydrate Macrobid Unknown Drug Allergy Active ibuprofen Ibuprofen Unknown Drug Allergy Active codeine Codeine Sulfate Unknown Drug Allergy A ctive aspirin Aspirin Unknown Drug Allergy Active Sulfa Unknown Drug Allergy Active Results Component Value Reference Range Notes Pathology Reviewed date:07/09/2024 02:36:13 PM Interpretation: Performing Lab:[facility], [address] [place] [phone] Notes/Report: Reason For Referral No Information Medications Medication SIG (Take, Route, Frequency, Duration) Notes Start Date End Date Status Fenofibrate 134 MG 1 capsule with a yolande l Orally Once a day for 30 day(s) Active Gabapentin 300 MG 2 tablet Orally twic a day Active Livalo 4 MG 1 [...] Problem Status W/U Status Risk Notes Problem 608229047 Colon cancer screening (Z12.11) Active confirmed Problem 379676729 Encounter for other preprocedural examination (Z01.818) Active confirmed Problem 632575739 Long-term curren t use of high risk medication other than anticoagulant (Z79.899) Active confirmed Problem 078315532 Personal history of colonic polyps (Z86.0100) Active confirmed Vital Signs Temperature 97.7 degrees Fahrenheit 04/15/2024 Blood pressure diastolic 00 mm Hg 04/15/2024 Height 68.5 in 04/15/2024 Blood pressure systolic 000 mm Hg 04/15/2024 Weight 223 lb 4 oz lbs 04/15/2024 BMI 33.45 kg/m2 04/15/2024 Encounters Encounter Location Date Provider Diagnosis [facility] [place] Outpatient [address] [place] [id number] 07/05/2024 Patrick Lopez Jr Colon cancer screening Z12.11 ; Personal history of adenomatous and serrated colon polyps Z86.0101 and Colon polyps K63.5 [facility] [address] [place] [phone] 04/15/2024 Patrick Lopez Jr Colon cancer screening Z12.11 ; Long-term current use of high risk medication other than anticoagulant Z79.899 and Personal history of colonic polyps Z86.0100 [facility] [address] [place] [phone] 07/09/2024 Patrick Lopez Jr Assessments Encounter Date Diagnosis (ICD Code) Assessment Notes Treatment Notes Treatment Clinical Notes Section Notes 07/05/2024 Colon cancer screening (ICD-10 - Z12.11) 07/05/2024 Personal history of adenomatous and serrated colon polyps (ICD-10 - Z86.0101) 04/15/2024 Colon cancer screening (ICD-10 - Z12.11) [...] of blood testing and post polypectomy bleeding 07/05/2024 Colon polyps (ICD-10 - K63.5) 04/15/2024 Personal history of colonic polyps (ICD-10 [...] Date COLONOSCOPY 07/31/2013 COLONOSCOPY 01/10/2019 COLONOSCOPY 04/15/2024 Insurance Providers Payer Name Payer Address Payer Phone Subscriber Number Group Number Insured Name Patient Relationship to Insured Coverage Start Date Coverage End Date [facility] [address] [place] [address] [id number] CRISTOPHER DIAZ Self - patient is the [...]
--- OUTSIDE RECORDS SUMMARY | 2024-12-31 15:01 | XMS_ITS | Clinical Summary ---
Author Organization [facility] Address [address] [place] [address] Care Team Providers Care Rad Technologist Name Role Phone Unavailable Primary Care Provider [...] 2001 Zoster Vaccines (1 of 2) 2001 Depression Screening 04/24/2024 COVID-19 Vaccine (1 - 2023-2 5 season) 2024 Influenza Vaccine (#1) 2024 RSV Immunization Adult Patie nts (1 - 1-dose 75+ series) 2026 HIB [...] age to complete this topic Meningococcal B Vaccine Aged Out No l onger eligible based on patient's age to complete this topic RSV Immunization Patients Un eileen 20 months Aged Out No longer eligible b ased on patient's age to complete this topic Varicella Vaccines Aged Out No longer eligible based on patient's age to complete this topic
== END 2024-12-31 14:31 | disposition home or self-care (01) ==
LOC: HO.HMCC 12:40
PROVIDERS: PCP Internal Medicine; Visit Provider Internal Medicine
DX: J44.9 Chronic obstructive pulmonary disease, unspecified (principal); N18.32 Chronic kidney disease, stage 3b; Z01.818 Encounter for other preprocedural examination; E78.2 Mixed hyperlipidemia; R73.01 Impaired fasting glucose; D63.1 Anemia in chronic kidney disease; G62.9 Polyneuropathy, unspecified

== ENCOUNTER → 2024-12-31 12:40 | Outpatient (BNVA) | payer MEDICARE, SELFPAY | PROVIDERS: PCP Internal Medicine; Visit Provider Internal Medicine | DX: Z01.818 Encounter for other preprocedural examination (principal); N18.32 Chronic kidney disease, stage 3b; D63.1 Anemia in chronic kidney disease; G47.33 Obstructive sleep apnea (adult) (pediatric); J44.9 Chronic obstructive pulmonary disease, unspecified; E78.2 Mixed hyperlipidemia; R73.01 Impaired fasting glucose; G62.9 Polyneuropathy, unspecified | CPT/HCPCS: 96127; 99212 ==

== ENCOUNTER 2025-03-13 06:18 | Outpatient (REF) | payer MEDICARE, SELFPAY ==
--- OUTSIDE RECORDS SUMMARY | 2024-07-05 02:30 | XMS_ITS ---
Author Organization [facility] Address [address] [place] [id number] Care Team Providers Care Prepper Name Role Phone Gary DUMAS, Stephanie Primary Care Provider Patrick Castillo Jr [phone] REASON FOR VISIT screening Encounters Encounter Location Date Provider Diagnosis [facility] [address] [place] [id number] 07/05/2024 Patrick Lopez Jr Colon cancer screening Z12.11 ; Personal history of adenomatous and serrated colon polyps Z86.0101 and Colon polyps K63.5 Assessments Encounter Date Diagnosis (ICD Code) Assessment Notes Treatment Notes Treatment Clinical Notes Section Notes 07/05/2024 Colon cancer screening (ICD-10 - Z12.11) 07/05/2024 Personal history of adenomatous and serrated colon polyps (ICD-10 - Z86.0101) 07/05/2024 Colon polyps (ICD-10 - K63.5) Plan Of Treatment No Information Progress Notes * CRISTOPHER DIAZDOB:1950 ([age] yo M)Acc No.[id number]:07/05/2024 COLON WITH MAC Patient: CRISTOPHER NAIR Provider: Megha Lopez MD :1950 A ge:74 Y S ex:Male Date:07/05/2024 Address:[address] [id number] Pcp:Stephanie Vega MD Subjective: * Chief Complaints: * S creening Assessment: * Assessment: 1. C olon cancer screening - Z12.11 (Primary) 2 . P ersonal history of adenomatous and serrated colon polyps - Z86.0101 3 . C olon polyps - K63.5 ? Plan: * Procedure Codes: 4 5385 LESION REMOVAL [id number] INTRVL 3+YRS PTS CLNSCP DOCD Billing Information: * Procedure Codes: 42198 LESION REMOVAL COLONOSCOPY. 0529F INTRVL 3+YRS PTS CLNSCP DOCD. * The named appointment provid er may or may not be the originator of this progress note, and it is not deemed complete until electronically signed by the appointment provider. Sign off status: Pending * Provider: Megha Lopez MD Date: 0 07/05/2024 Generated for Toby hogan/Linda/Sebitting on: 05/13/2024 06:21 AM EST
--- OUTSIDE RECORDS SUMMARY | 2025-03-13 06:21 | XMS_ITS | Clinical Summary ---
Author Organization [facility] Address 100 [facility] [address] 0 [place] [address] Phone Care Team Providers Care Agile Tester Name Role Phone Mahnaz Vega MD Primary Care Provider +1- [phone] Allergies Active Allergy Reactions Criticality Noted Date [...] injury 10/12/2020 07/05/2023 Renal stone 10/12/2020 07/10/2022 Encounters Date Type Department Care Team Description 01/15/2025 8:00 AM EDT [facility] [address] [phone] Chavo Ronquillo MD Stage 3b chronic kidney disease (HCC) (Primary Dx); Urostomy present (HCC); Proteinuria, not otherwise specified; Personal history of kidney stones; 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); Localized edema; Hypertension; Hyperkalemia; Dyslipidemia; Chronic metabolic acidosis; Bladder cancer (HCC) 01/11/2025 Orders Only [facility] [address] [phone] Chavo Ronquillo MD Stage 3b chronic kidney disease (HCC); Hyperkalemia; Chronic metabolic acidosis; Bladder cancer (HCC); Absent kidney; Anemia in chronic kidney disease; Hypertension; Localized edema; Personal history of kidney stones; Proteinuria, not otherwise specified; Renal tubular disorder; Urostomy present (HCC); Vitamin D deficiency, not otherwise specified from Last 3 Months Immunizations Immunization Administration Dates Next Due Influenza [...] Sign Reading Time Taken Comments Blood Pressure 162/80 01/15/2025 7:58 AM EDT Pulse 54 01/15/2025 7:58 AM EDT Temperature - - Respiratory Rate - - Oxygen Saturation 94% 01/15/2025 7:58 AM EDT Inhaled Oxygen Concentration - - Weight 103 kg (226 lb) 01/15/2025 7:58 AM EDT Height 172.7 cm (5' 8 ) 07/11/2024 8:04 AM EDT Body Mass Index 34.36 07/11/2024 8:04 AM EDT Plan of Treatment Upcoming Encounters Date Type Department Care Team (Late st Contact Info) Description 07/16/2025 8:00 AM EDT Office Visit [facility] [address] [phone] Chavo Ronquillo MD [address] [facility] [address] [place] [address] Health Maintenance Due Date Last Done Comments [...] on patient's age to complete this topic Procedures Procedure Name Priority Date/Time Associated Diagnosis Comments PTH, INTACT Routine 01/01/2025 8:06 AM EDT MAGNESIUM Routine 01/01/2025 8:06 AM EDT PHOSPHATE ( PHOSPHORUS) Routine 01/01/2025 8:06 AM EDT URIC ACID Routine 01/01/2025 8:06 AM EDT VITAMIN D 25 HYDROXY Routine 01/01/2025 8:06 AM EDT COMPREHENSIVE METABOLIC PANEL Routine 01/01/2025 8:06 AM EDT CBC AND DIFFERENTIAL Routine 01/01/2025 8:06 AM EDT from Last 3 Months Results * Vitamin D 25 Hydroxy (01/01/2025 8:06 AM EDT) Vitamin D, 25-OH, Total 35.7 30.0 - 100.0 ng/mL [facility] Comment: Vitamin D deficiency has been defined by the [place] [employer] and an Endocrine Society practice guideline as a level of serum 25-OH vitamin D less than 20 ng/mL (1,2). The Endocrine Society went on to further define vitamin D insufficiency as a level between 21 and 29 ng/mL (2). 1. IOM ([place] [employer]). 2010. Dietary reference intakes for calcium and D. [place]: The National Academies Press. 2. Yolanda MF, Raphael MANCIA, Grzegorz SQUIRES, et al. Evaluation, treatment, and prevention of vitamin D deficiency: an Endocrine Society clinical practice guideline. JCEM. 2010; 96(7):1911-30. 01/01/2025 8:06 AM EDT 01/01/2025 us Chavo Ronquillo MD LAB BLOOD ORDERABLES Final Re sult [facility] [address] [place] [address] * CBC and Differential (01/01/2025 8:06 AM EDT) WBC 5.4 3.4 - 10.8 x10E3/uL [facility] RBC 4.35 4.14 - 5.80 x10E6/uL [facility] Hemoglobin 13.1 13.0 - 17.7 g/dL [facility] Hematocrit 40.5 37.5 - 51.0 % [facility] MCV 93 79 - 97 fL [facility] MCH 30.1 26.6 - 33.0 pg [facility] MCHC 32.3 31.5 - 35.7 g/dL [facility] RDW 12.7 11.6 - 15.4 % [facility] Platelets 232 150 - 450 x10E3/uL [facility] Neutrophils Relative 59 Not Estab. % [facility] Lymphocytes Relative 28 Not Estab. % [facility] Monocytes 7 Not Estab. % [facility] Eosinophils Relative 5 Not Estab. % [facility] Basophils Relative 1 Not Estab. % [facility] Neutrophils Absolute 3.2 1.4 - 7.0 x10E3/uL [facility] Lymphocytes Absolute 1.5 0.7 - 3.1 x10E3/uL [facility] Monocytes Absolute 0.4 0.1 - 0.9 x10E3/uL [facility] Eosinophils Absolute 0.3 0.0 - 0.4 x10E3/uL [facility] Basophils Absolute 0.1 0.0 - 0.2 x10E3/uL [facility] Immature Granulocytes 0 Not Estab. % [facility] Immature Grans (Absolute) 0.0 0.0 - 0.1 x10E3/uL [facility] 01/01/2025 8:06 AM EDT 01/01/2025 Chavo Ronquillo MD LAB BLOOD ORDERABLES Final Re sult [facility] [address] [place] [address] * Uric Acid (01/01/2025 8:06 AM EDT) Uric Acid 8.0 3.8 - 8.4 mg/dL [facility] Comment:Therapeutic target f or gout patients: <6.0 01/01/2025 8:06 AM EDT 01/01/2025 Chavo Ronquillo MD LAB BLOOD ORDERABLES Final Re sult [facility] [address] [place] [address] * Phosphorus (01/01/2025 8:06 AM EDT) Phosphorus 2.9 2.8 - 4.1 mg/dL [facility] 01/01/2025 8:06 AM EDT 01/01/2025 us Chavo Ronquillo MD LAB BLOOD ORDERABLES Final Re sult Performing Organization Address [facility] Co de Phone Number [facility] [address] [place] [address] * PTH, Intact (01/01/2025 8:06 AM EDT) PTH 38 15 - 65 pg/mL [facility] 01/01/2025 8:06 AM EDT 01/01/2025 us Chavo Ronquillo MD LAB BLOOD ORDERABLES Final Re sult Performing Organization Address [facility] de Phone Number [facility] [address] [place] [address] * Magnesium (01/01/2025 8:06 AM EDT) Magnesium 2.0 1.6 - 2.3 mg/dL [facility] 01/01/2025 8:06 AM EDT 01/01/2025 us Chavo Ronquillo MD LAB BLOOD ORDERABLES Final Re sult Performing Organization Address City/[facility]/ZIP Co de Phone Number [facility] [address] [place] [address] * (ABNORMAL) Comprehensive Metabolic Panel (01/01/2025 8:06 AM EDT) [facility] Glucose 98 70 - 99 mg/dL [facility] BUN 28(H) 8 - 27 mg/dL [facility] Creatinine 1.96(H) 0.76 - 1.27 mg/dL [facility] eGFR CKD-EPI CR 2020 35(L) >59 mL/min/1.7 3 [facility] BUN/Creatinine Ratio 14 10 - 24 [facility] Sodium 140 134 - 144 mmol/L [facility] Potassium 4.6 3.5 - 5.2 mmol/L [facility] Chloride 106 96 - 106 mmol/L [facility] Bicarbonate (CO2) 19(L) 20 - 29 mmol/L [facility] Calcium 8.9 8.6 - 10.2 mg/dL [facility] Total Protein 6.7 6.0 - 8.5 g/dL [facility] Albumin 4.4 3.8 - 4.8 g/dL [facility] Globulin 2.3 1.5 - 4.5 g/dL [facility] Total Bilirubin 0.4 0.0 - 1.2 mg/dL [facility] Alkaline Phosphatase 57 44 - 121 IU/L [facility] Comment: Effective January 06, 2025 Alkaline Phosphatase reference interval will be changing to: Age Male Female 0 - 5 days 47 - 127 47 - 127 6 - 10 days 29 - 242 29 - 242 11 - 20 days 109 - 357 109 - 357 21 - 30 days 94 - 494 94 - 494 1 - 2 months 149 - 539 149 - 539 3 - 6 months 131 - 452 131 - 452 7 - 11 months 117 - 401 117 - 401 12 months - 6 years 158 - 369 158 - 369 7 - 12 years 150 - 409 150 - 409 13 years 156 - 435 78 - 227 14 years 114 - 375 64 - 161 15 years 88 - 279 56 - 134 16 years 74 - 207 51 - 121 17 years 63 - 161 47 - 113 18 - 20 years 51 - 125 42 - 106 21 - 50 years 47 - 123 41 - 116 51 - 80 years 49 - 135 51 - 125 >80 years 48 - 129 48 - 129 AST (SGOT) 20 0 - 40 IU/L [facility] ALT (SGPT) 16 0 - 44 IU/L [facility] 01/01/2025 8:06 AM EDT 01/01/2025 us Chavo Ronquillo MD LAB BLOOD ORDERABLES Final Re sult [facility] [address] [place] [address] from Last 3 Months Insurance Care Teams Agile Tester Relationship Specialty Start Date End Date Mahnaz Vega MD PCP - General 05/04/20
--- OUTSIDE RECORDS SUMMARY | 2025-03-13 06:21 | XMS_ITS | Encounter Summary ---
Author Organization [facility] Address [address] [facility] [address] [place] [address] Phone Care Team Providers Care Second Worker Name Role Phone Mahnaz Vega MD Primary Care Provider +1- [phone] Reason for Visit * Reason Comments Med Refill Encounter Details Date Type Department Care Team ([facility] st Contact Info) Description 07/20/2020 Refill [facility] [address] [place] [phone] Chavo Ronquillo MD [address] [facility] [address] [place] [address] Social History Tobacco Use Types [...] Office Visit [facility] [address] [phone] Chavo Ronquillo MD [facility] [phone] documented as of this encounter Visit Diagnoses Not on filedocumented in this encounter Care Teams Second Worker Relationship Specialty Start Date End Date Mahnaz Vega MD PCP - General 05/04/20 documented as of this encounter
--- OUTSIDE RECORDS SUMMARY | 2025-03-13 06:22 | XMS_ITS | Patient Health Record ---
Author Organization [facility] Address [address] [place] [address] Care Team Providers Care Mortgage Accounting Clerk Name Role Phone Gary DUMAS, Stephanie Primary Care Provider Patrick Castillo Jr Unavailable [phone] Allergies Allergen (clinical drug ingredient) Drug/Non Drug Allergy documented on EMR Reaction Allergy Type Onset Date Status aspirin Aspirin Unknown Drug Allergy Active codeine Codeine Sulfate Unknown Drug Allergy A ctive ibuprofen Ibuprofen Unknown Drug Allergy Active nitrofurantoin, macrocrystals / nitrofurantoin, monohydrate Macrobid Unknown Drug Allergy Active Motrin Unknown Drug Allergy Active Sulfa Unknown Drug Allergy Active Results Component Value Reference Range Notes Pathology Reviewed date:07/09/2024 02:36:13 PM Interpretation: Performing Lab:[facility], [address] [place] [phone] Notes/Report: Reason For Referral No Information Medications Medication SIG (Take, Route, Frequency, Duration) Notes Start Date End Date Status Fenofibrate 134 MG Capsule 1 capsule wit h a meal Orally Once a day; Duration: 30 day(s) Active Gabapentin 300 MG Capsule 2 tablet Orall y twice a day Active Livalo 4 MG Tablet 1 tablet Orally Once a day; Duration: 30 day(s) Active MiraLax (colon prep) 17 GM/SCOOP Powder mixed with Gatorade or Crystal Light Orally begin at 5:00 p.m. the day before the procedure; Duration: 1 day 04/15/2024 Active Carvedilol 12.5 MG Tablet 1 tablet Orally BID Active Symbicort 160-4.5 MCG/ACT Aerosol as directed Inhalation Activ e Vitamin D3 2000 UNIT Capsule 1 capsule Orally Once a day; Duration: 30 day(s) Active Famotidine 40 MG Tablet 1 tablet Orally Once a day; Duration: 30 day(s) Active Cranberry 425 MG Capsule as directed Orally Active Ezetimibe 10 MG Tablet 1 tablet Orally O nce a day; Duration: 30 day(s) Active Immunizations Vaccine Route Administration Date Status Comme nts Influenza Unknown 12/23/2018 Administered Influenza Unknown 03/27/2024 Administered Social History Tobacco Use: Social History Observation Description Date Details (start date - stop date) Former Smoker NA - NA Social History Drugs/Alcohol: Social Info Question Answer Notes Alcohol Screen Did you have a drink containing alcohol in the past year? No Points 0 Interpretation Negative Tobacco Use: Social Info Question Answer Notes Tobacco Use/Smoking Patient is a former smoker How long has it been since you last smoked? > 10 years Additional Details Category Social Info Options Details Miscellaneous: Marital status: Occupation: disabled, retire d Problems Problem Type SNOMED Code ICD Code Onset Dates Problem Status W/U Status Risk Notes Problem Colon cancer screening (003445030) Colon cancer screening (Z12.11) Active confirmed Problem Pre-procedure evaluation check (007973028) Encounter for other preprocedural examination (Z01.818) Active confirmed Problem Long-term current use of drug therapy (755464744) Long-term current use of high risk medication other than anticoagulant (Z79.899) Active confirmed Problem History of polyp of colon (situation) (203441472) Personal history of colonic polyps (Z86.0100) Active confirmed Vital Signs Temperature 97.7 degrees Fahrenheit 04/15/2024 Blood pressure diastolic 00 mm Hg 04/15/2024 Height 68.5 in 04/15/2024 Blood pressure systolic 000 mm Hg 04/15/2024 Weight 223 lb 4 oz lbs 04/15/2024 BMI 33.45 kg/m2 04/15/2024 Encounters Encounter Location Date Provider Diagnosis [facility] Outpatient [address] [place], [place] [phone] 07/05/2024 Patrick Lopez Jr Colon cancer screening Z12.11 ; Personal history of adenomatous and serrated colon polyps Z86.0101 and Colon polyps K63.5 [facility] [address] [facility] [address] [place] [phone] 04/15/2024 Patrick Lopez Jr Colon cancer screening Z12.11 ; Long-term current use of high risk medication other than anticoagulant Z79.899 and Personal history of colonic polyps Z86.0100 [facility] [address] [facility] [address] [place] [address] 07/09/2024 Patrick Lopez Jr Assessments Encounter Date [...] bleeding 07/05/2024 Colon polyps (ICD-10 - K63.5) Plan Of Treatment Future Test Test Name Order Date COLONOSCOPY 07/31/2013 COLONOSCOPY 01/10/2019 COLONOSCOPY 04/15/2024 Insurance Providers Payer Name Payer Address Payer Phone Subscriber Number Group Number Insured Name Patient Relationship to Insured Coverage Start Date Coverage End Date [facility] [address] [facility] [phone] [id number] CRISTOPHER DIAZ Self - patient is the [...]
[2025-03-13 10:58] LABS: Alanine Aminotransferase 18 U/L (0-40); Aspartate Amino Transferase 28 U/L (5-37); Cholesterol 201 mg/dL (<200); HDL Cholesterol 43 mg/dL (>40); Triglycerides 164 mg/dL (<150)
== END 2025-03-13 06:19 | disposition home or self-care (01) ==
LOC: HO.HMGCLDS 06:18
PROVIDERS: PCP Internal Medicine; Visit Provider Internal Medicine
DX: E78.2 Mixed hyperlipidemia (principal); R73.01 Impaired fasting glucose; Z13.21 Encounter for screening for nutritional disorder
CPT/HCPCS: 36415; 80061; 82306; 82947; 83036; 84450; 84460

== ENCOUNTER 2025-04-01 07:59 | Outpatient (AMB) | payer MEDICARE, SELFPAY ==
--- OUTSIDE RECORDS SUMMARY | 2024-07-05 02:30 | XMS_ITS ---
Author Organization [facility] Address [address] [place] [phone] Care Team Providers Care Crtt Name Role Phone Gary DUMAS, Stephanie Primary Care Provider Patrick Castillo Jr [phone] REASON FOR VISIT screening Encounters Encounter Location Date Provider Diagnosis [facility] Outpatient [address] [place] [id number] 07/05/2024 Patrick Lopez Jr Colon cancer screening [...] * CRISTOPHER DIAZDOB:1950 ([age] yo M)Acc No.[id number]:07/05/2024 COLON WITH MAC Patient: CRISTOPHER NAIR Provider: Megha Lopez MD :1950 A ge:74 Y S ex:Male Date:07/05/2024 Address[address] [id number] Pcp:Stephanie Vega MD Subjective: * Chief Complaints: * S creening Assessment: * Assessment: 1. C olon cancer screening - Z12.11 (Primary) 2 . P ersonal history of adenomatous and serrated colon polyps - Z86.0101 3 . C olon polyps - K63.5 ? Plan: * Procedure Codes: 4 5385 LESION REMOVAL [id number] INTRVL 3+YRS PTS CLNSCP DOCD Billing Information: * Procedure Codes: 58881 LESION REMOVAL COLONOSCOPY. 0529F INTRVL 3+YRS PTS CLNSCP DOCD. * The named appointment provid er may or may not be the originator of this progress note, and it is not deemed complete until electronically signed by the appointment provider. Sign off status: Pending * Provider: Megha Lopez MD Date: 0 07/05/2024 Generated for Toby hogan/Linda/Sebitting on: 1 06/02/2024 08:25 AM EST
--- OUTSIDE RECORDS SUMMARY | 2025-04-01 08:25 | XMS_ITS | Patient Health Record ---
Author Organization [facility] Address [address] [place] [address] Care Team Providers Care Independent Driver Name Role Phone Gary DUMAS, Stephanie Primary [...] Pathology Reviewed date:07/09/2024 02:36:13 PM Interpretation: Performing Lab:[facility], [address] [place] [id number] Notes/Report: Reason For Referral No Information Medications [...] Status Risk Notes Problem Colon cancer screening (657108033) Colon cancer screening (Z12.11) Active confirmed Problem Pre-procedure evaluation check (277363425) Encounter for other preprocedural examination (Z01.818) Active confirmed Problem Long-term current use of drug therapy (125406524) Long-term current use of high risk medication other than anticoagulant (Z79.899) Active confirmed Problem History of polyp of colon (situation) (729305035) Personal history of colonic polyps (Z86.0100) Active confirmed Vital Signs Temperature 97.7 degrees Fahrenheit 04/15/2024 Blood pressure diastolic 00 mm Hg 04/15/2024 Height 68.5 in 04/15/2024 Blood pressure systolic 000 mm Hg 04/15/2024 Weight 223 lb 4 oz lbs 04/15/2024 BMI 33.45 kg/m2 04/15/2024 Encounters Encounter Location Date Provider Diagnosis [facility] Outpatient [address] [place], [place] [id number] 07/05/2024 Patrick Lopez Jr Colon cancer screening Z12.11 ; Personal history of adenomatous and serrated colon polyps Z86.0101 and Colon polyps K63.5 [facility] [address] [facility] [address] [place] [phone] 04/15/2024 Patrick Lopez Jr Colon cancer screening Z12.11 ; Long-term current use of high risk medication other than anticoagulant Z79.899 and Personal history of colonic polyps Z86.0100 [facility] [address] [facility] [address] [place] [address] 07/09/2024 Patrick Lopez Jr Assessments Encounter Date [...] Insured Coverage Start Date Coverage End Date [facility] [address] [facility] [phone] [id number] CRISTOPHER DIAZ Self - patient is the [...]
--- OUTSIDE RECORDS SUMMARY | 2025-04-01 08:25 | XMS_ITS | Clinical Summary ---
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); Localized edema; Hypertension; Hyperkalemia; Dyslipidemia; Chronic metabolic acidosis; Bladder cancer (HCC) 01/11/2025 Orders Only [facility] [address] [address] Chavo Ronquillo MD Stage 3b chronic kidney [...] Office Visit [facility] [address] [phone] Chavo Ronquillo MD [address] [facility] [address] [place] [address] Health Maintenance Due Date Last Done Comments [...] 25-OH, Total 35.7 30.0 - 100.0 ng/mL [facility] Comment: Vitamin D deficiency has been defined by the [place] of [employer] and an Endocrine Society practice guideline as a level of serum 25-OH vitamin D less than 20 ng/mL (1,2). The Endocrine Society went on to further define vitamin D insufficiency as a level between 21 and 29 ng/mL (2). 1. IOM ([place] of [employer]). 2010. Dietary reference intakes for calcium and D. [place]: The National Academies Press. 2. Yolanda MF, Raphael MANCIA, Grzegorz SQUIRES, et al. Evaluation, treatment, and prevention of vitamin D deficiency: an Endocrine Society clinical practice guideline. JCEM. 2010; 96(7):1911-30. 01/01/2025 8:06 AM EDT 01/01/2025 us Chavo Ronquillo MD LAB BLOOD ORDERABLES Final Re sult [facility] [place] [address] [place] [address] * CBC and Differential (01/01/2025 8:06 AM EDT) WBC 5.4 3.4 - 10.8 x10E3/uL [facility] [place] RBC 4.35 4.14 - 5.80 x10E6/uL [facility] [place] Hemoglobin 13.1 13.0 - 17.7 g/dL [facility] [place] Hematocrit 40.5 37.5 - 51.0 % [facility] [place] MCV 93 79 - 97 fL [facility] [place] MCH 30.1 26.6 - 33.0 pg [facility] [place] MCHC 32.3 31.5 - 35.7 g/dL [facility] [place] RDW 12.7 11.6 - 15.4 % [facility] [place] Platelets 232 150 - 450 x10E3/uL [facility] [place] Neutrophils Relative 59 Not Estab. % [facility] [place] Lymphocytes Relative 28 Not Estab. % [facility] [place] Monocytes 7 Not Estab. % [facility] [place] Eosinophils Relative 5 Not Estab. % [facility] [place] Basophils Relative 1 Not Estab. % [facility] [place] Neutrophils Absolute 3.2 1.4 - 7.0 x10E3/uL [facility] [place] Lymphocytes Absolute 1.5 0.7 - 3.1 x10E3/uL [facility] [place] Monocytes Absolute 0.4 0.1 - 0.9 x10E3/uL [facility] [place] Eosinophils Absolute 0.3 0.0 - 0.4 x10E3/uL [facility] [place] Basophils Absolute 0.1 0.0 - 0.2 x10E3/uL [facility] [place] Immature Granulocytes 0 Not Estab. % [facility] [place] Immature Grans (Absolute) 0.0 0.0 - 0.1 x10E3/uL [facility] [place] 01/01/2025 8:06 AM EDT 01/01/2025 Chavo Ronquillo MD LAB BLOOD ORDERABLES Final Re sult [facility] [place] [address] [place] [address] * Uric Acid (01/01/2025 8:06 AM EDT) Uric Acid 8.0 3.8 - 8.4 mg/dL [facility] [place] Comment:Therapeutic target f or gout patients: <6.0 01/01/2025 8:06 AM EDT 01/01/2025 Chavo Ronquillo MD LAB BLOOD ORDERABLES Final Re sult [facility] [place] [address] [place] [address] * Phosphorus (01/01/2025 8:06 AM EDT) Phosphorus 2.9 2.8 - 4.1 mg/dL [facility] [place] 01/01/2025 8:06 AM EDT 01/01/2025 us Chavo Ronquillo MD LAB BLOOD ORDERABLES Final Re sult Performing Organization Address [facility] Co de Phone Number [facility] [place] [address] [place] [address] * PTH, Intact (01/01/2025 8:06 AM EDT) PTH 38 15 - 65 pg/mL [facility] [place] 01/01/2025 8:06 AM EDT 01/01/2025 us Chavo Ronquillo MD LAB BLOOD ORDERABLES Final Re sult Performing Organization Address [facility] de Phone Number [facility] [place] [address] [place] [address] * Magnesium (01/01/2025 8:06 AM EDT) Magnesium 2.0 1.6 - 2.3 mg/dL [facility] [place] 01/01/2025 8:06 AM EDT 01/01/2025 us Chavo Ronquillo MD LAB BLOOD ORDERABLES Final Re sult Performing Organization Address City/[facility]/ZIP Co de Phone Number [facility] [place] [address] [place] [address] * (ABNORMAL) Comprehensive Metabolic Panel (01/01/2025 8:06 AM EDT) [facility] Glucose 98 70 - 99 mg/dL [facility] [place] BUN 28(H) 8 - 27 mg/dL [facility] [place] Creatinine 1.96(H) 0.76 - 1.27 mg/dL [facility] [place] eGFR CKD-EPI CR 2020 35(L) >59 mL/min/1.7 3 [facility] [place] BUN/Creatinine Ratio 14 10 - 24 [facility] [place] Sodium 140 134 - 144 mmol/L [facility] [place] Potassium 4.6 3.5 - 5.2 mmol/L [facility] [place] Chloride 106 96 - 106 mmol/L [facility] [place] Bicarbonate (CO2) 19(L) 20 - 29 mmol/L [facility] [place] Calcium 8.9 8.6 - 10.2 mg/dL [facility] [place] Total Protein 6.7 6.0 - 8.5 g/dL [facility] [place] Albumin 4.4 3.8 - 4.8 g/dL [facility] [place] Globulin 2.3 1.5 - 4.5 g/dL [facility] [place] Total Bilirubin 0.4 0.0 - 1.2 mg/dL [facility] [place] Alkaline Phosphatase 57 44 - 121 IU/L [facility] [place] Comment: Effective January 06, 2025 Alkaline Phosphatase [...] (SGOT) 20 0 - 40 IU/L [facility] [place] ALT (SGPT) 16 0 - 44 IU/L [facility] [place] 01/01/2025 8:06 AM EDT 01/01/2025 us Chavo Ronquillo MD LAB BLOOD ORDERABLES Final Re sult [facility] [place] [address] [place] [address] from Last 3 Months Insurance Care Teams Data Integration Analyst Relationship Specialty Start Date End Date Mahnaz Vega MD PCP - General 05/04/20
--- OUTSIDE RECORDS SUMMARY | 2025-04-01 08:25 | XMS_ITS | Encounter Summary ---
Author Organization [facility] Address [address] [facility] [address] [place] [address] Phone Care Team Providers Care Director Of Event Marketing Name Role Phone Mahnaz Vega MD Primary Care Provider [phone]- [phone] Reason for Visit * Reason Comments Med Refill Encounter Details Date Type Department Care Team ([facility] st Contact Info) Description 07/20/2020 Refill [facility] [address] [address] [place] [phone] Chavo Ronquillo MD [address] [facility] [address] [place] [address] Social History Tobacco Use Types [...] Office Visit [facility] [address] [phone] Chavo Ronquillo MD [facility] [address] [phone] documented as of this encounter Visit Diagnoses Not on filedocumented in this encounter Care Teams Director Of Event Marketing Relationship Specialty Start Date End Date Mahnaz Vega MD PCP - General 05/04/20 documented as of this encounter
--- OUTSIDE RECORDS SUMMARY | 2025-04-01 08:25 | XMS_ITS | Clinical Summary ---
Author Organization [facility] Address [address] [place] [address] Care Team Providers Care [employer] Barista Name Role Phone Unavailable Primary Care Provider [...] Depression Screening 04/24/2024 COVID-19 Vaccine (1 - 2024-2 6 season) 2024 Influenza Vaccine (#1) 2024 RSV [...]
[2025-04-01 09:00] VITALS: BP 132/70; PULSE 52; RESP 16; TEMP 36.5; O2SAT 95; BMI 34.3
--- NOTE | 2025-04-01 09:00 | MHC.PC.OV ---
Vital Signs 04/01/25 09:00 Height 5 ft 8.5 in Weight 229 lb BMI 34.3 BP 132/70 Blood Pressure Location Rt brachial Position Sitting Respiration 16 Pulse 52 Pulse Source Pulse Oximeter Temp 97.7 F Temp Source Oral Pulse Oximetry (%) 95 Oxygen Delivery Method Room Air Intake Visit Reasons: Annual PE - see comments Intake Note: Pt is here today for his PE: Last colonoscopy 07/05/24 Blueprinting And Photocopy Supervisor Required: No Allergies codeine Allergy (Verified 04/01/25 09:19) Unknown nitrofurantoin (From Macrobid) Allergy (Verified 04/01/25 09:19) Unknown atorvastatin (Lipitor) Adverse Reaction (Unknown, Verified 04/01/25 09:19) muscle pain pravastatin Adverse Reaction (Unknown, Verified 04/01/25 09:19) muscle pain rosuvastatin (Crestor) Adverse Reaction (Unknown, Verified 04/01/25 09:19) muscle pain simvastatin Adverse Reaction (Unknown, Verified 04/01/25 09:19) muscle pain aspirin Adverse Reaction (Verified 04/01/25 09:19) Abdominal Pain ibuprofen Adverse Reaction (Verified 04/01/25 09:19) Abdominal Pain Sulfa (Sulfonamide Antibiotics) Adverse Reaction (Verified 04/01/25 09:19) stomach ache Medication List - Last Reconciled 04/01/25 by Stephanie Vega MD budesonide-formoterol 160-4.5 mcg/actuation (Symbicort) 2 puffs inhalation BID carvedilol 12.5 mg PO BID cholecalciferol (vitamin D3) 50 mcg PO DAILY cranberry fruit concentrate (Cran-Max) 500 mg PO BID ezetimibe 10 mg PO DAILY famotidine 40 mg PO DAILY fenofibrate micronized 134 mg PO DAILY gabapentin 300 mg PO BID Tobacco use date assessed: 04/01/25 Fall risk assessment: No Falls in past year Last assessed Fall Risk: 04/01/25 Dental Screening Dental Screen Date: 04/01/25 Did you have a dental visit in the last 12 months?: No Did you have a dental problem in the last 6 months where you did not have access to dental care?: No Was dental information given to patient?: Patient declined HPI HPI Comments History of Present Illness Details History of Present Illness The patient is a 75 year old male presenting for an annual physical and management of chronic conditions. He has a strong family history of diabetes mellitus, with all 12 of his siblings affected, but he himself is not diabetic. He attributes this to strict adherence to a healthy diet. Recent lab work showed a fasting blood sugar of 90, compared to 103 previously, with a normal hemoglobin A1c of 5.8. His cholesterol levels have fluctuated; total cholesterol increased slightly from 197 to 201 mg/dL, and LDL cholesterol increased from 105 to 126 mg/dL. However, his triglycerides decreased significantly from 221 to 164 mg/dL. The patient is taking ezetimibe and fenofibrate for his hyperlipidemia. The patient has a history of bladder cancer , s/p cystectomy, which resulted in the loss of one kidney. He is now dependent on his single remaining kidney and is followed by [facility], seeing Dr. Ronquillo, for chronic kidney disease. He also developed peripheral neuropathy, possibly related to oral chemotherapy he received for his bladder cancer years ago, which has worsened over time and is managed with gabapentin. Regarding his surgical history, the patient underwent cataract surgery with Dr. Goodman in 2022. He still requires bifocal glasses for reading. He now uses hearing aids. He is up to date with vaccinations , including RSV, the new pneumonia shot (Pneumovax 20), two doses of the new shingles vaccine, Tdap, and both COVID-19 and flu shots in December. [facility] Medical History History of kidney stones Bowel obstruction Pulmonary fibrosis Elevated cholesterol Neuropathy HTN (hypertension) Chronic right shoulder pain Excessive sleepiness Fatigue History of heartburn Hx of bladder cancer Polyneuropathy Stage 3b chronic kidney disease Absent kidney Anemia in chronic kidney disease Obesity (BMI 30.0-34.9) Impaired fasting glucose COPD (chronic obstructive pulmonary disease) Plantar fasciitis Recurrent nephrolithiasis Intolerance to BiPAP/CPAP Obstructive sleep apnea Psoriasis Tubular adenoma of colon Anxiety disorder Statin intolerance Mixed dyslipidemia Surgical History Hx of cataract surgery History of nephrectomy, right Hx of shoulder surgery Hx of elbow surgery History of urostomy History of vagotomy History of hernia repair History of surgery on arm Hx of cholecystectomy Family History Father HTN (hypertension) Diabetes mellitus Dyslipidemia CAD (coronary artery disease) Aneurysm Mother CAD (coronary artery disease) Diabetes mellitus Dyslipidemia HTN (hypertension) COPD (chronic obstructive pulmonary disease) Brother History of heart attack Son No problems noted. Daughter No problems noted. Daughter No problems noted. Social History Housing: House Are you a primary rn coronary care unit to a significant other at home: No Do you presently have visiting nurse or other home services: No Alcohol intake: never Patient Tobacco Use Status: Never used Tobacco e-Cigarette/Vaping Use: Never Used Second Hand Smoke Exposure: No service: Yes Current occupational status: retired Current occupation: right hand Cognitive needs: No Hearing needs: No Vision needs: Yes Questionnaire PHQ-9 Over the last 2 weeks, how often have you been bothered by any of the following problems? 1. Little interest or pleasure in doing things: not at all 2. Feeling down, depressed, or hopeless: not at all 3. Trouble falling or staying asleep, or sleeping too much: more than half the days 4. Feeling tired or having little energy: not at all 5. Poor appetite or overeating: not at all 6. Feeling bad about yourself - or that you are a failure or have let yourself or your family down: not at all 7. Trouble concentrating on things, such as reading the newspaper or watching television: not at all 8. Moving or speaking so slowly that other people could have noticed. Or the opposite - being so fidgety or restless that you have been moving around a lot more than usual: not at all 9. Thoughts that you would be better off or of hurting yourself in some way: not at all Total score: 2 Depression Screening Interpretation: Negative Depression Screening Done: Yes Source: Developed by Drs. Joaquin Hansen, Lillian Cullen, Melquiades Gomez and colleagues, with an educational chela from [employer]. Thrive Questionnaire Date Thrive assessed: 06/20/24 I am a: Patient What is your living situation today?: I have a steady place to live Within the past 12 months, did the food you bought not last and you didn't have the money to get more?: Never true Within the past 12 months, did you worry whether your food would run out before you got money to buy more?: Never true Do you have trouble paying for medicines?: No Do you have trouble getting transportation to medical appointments?: No Do you have trouble paying your heating and electricity bill?: No Do you have trouble taking care of your child, family member or friend?: No Do you have trouble with day-to-day activities such as bathing, preparing meals, shopping, managing finances, etc.?: No Are you currently unemployed and looking for a job?: No Are you interested in more education?: No Please select the resources that you would like help with: None Currently or been in a relationship where the following occur: No concerns reported THRIVE Score: 0 ALVERTO-7 AMB Questionnaire ALVERTO-7 Date ALVERTO - 7 assessed: 06/26/24 Feeling nervous, anxious, or on edge: 0 = Not at all Not being able to stop or control worryin = Not at all Worrying too much about different things: 0 = Not at all Trouble relaxin = Not at all Being so restless that it is hard to sit still: 0 = Not at all Becoming easily annoyed or irritable: 0 = Not at all Feeling afraid as if something awful might happen: 0 = Not at all Total ALVERTO-7 score (0-4 normal; 5-9 mild; 10-14 moderate; 15-21 severe): 0 Source: Developed by Drs. Joaquin Hansen, Lillian Cullen, Melquiades Gomez and colleagues, with an educational chela from [employer]. Review of Systems Const Denies body aches, Denies fatigue, Denies fever(s), Denies headache(s) and Denies weakness Eyes Reports blurry vision, Denies eye discharge and Denies itchy eyes ENT Details: Now wears hearing aid Denies dizziness, Denies headache(s), Denies nasal congestion and Denies nasal discharge Card Denies chest pain, Denies lightheadedness, Denies palpitations, Denies dyspnea and Denies dyspnea on exertion Resp Denies chest congestion, Denies pain with cough, Denies dyspnea, Denies dyspnea on exertion and Denies wheezing GI Denies abdominal pain, Denies change in bowel habits and Denies heartburn Details: Has urostomy bag Musc Reports no additional complaints Skin/Breast Denies lesions and Denies rash Neuro Denies dizziness, Denies headache(s) and Denies weakness Psych Reports no additional complaints Endo Denies fatigue, Denies polydipsia, Denies polyuria and Denies palpitations Porfirio/Lymph Denies easy bruising Aller/Immun Denies itchy eyes, Denies seasonal rhinorrhea and Denies wheezing Physical exam (Primary Care) Vital Signs: Last Vital Signs Temp 97.7 F 04/01/25 09:00 Pulse 52 04/01/25 09:00 Resp 16 04/01/25 09:00 BP 132/70 04/01/25 09:00 Pulse Ox 95 04/01/25 09:00 Oxygen Delivery Method Room Air 04/01/25 09:00 BMI result Body Mass Index 34.3 Tobacco/Smoking Status: Tobacco use Status Tobacco use date assessed 04/01/25 04/01/25 09:04 Patient Tobacco Use Status Never used Tobacco 04/01/25 09:04 e-Cigarette/Vaping Use Never Used 04/01/25 09:04 PHQ-9: PHQ-9 Score PHQ-9: Total score 2 04/01/25 09:34 Depression Screening Interpretation: Negative Thrive Assessment: Date of Thrive Assessment Date Thrive assessed 06/20/24 04/01/25 09:04 Currently or been in a relationship where the following occur: No concerns reported Const General: comfortable, no acute distress and alert Orientation/consciousness: patient oriented x3 [facility] Mouth: Normal oral and palatal mucosa present, oropharynx normal and moist mucous membranes Eyes General: appearance normal, both eyes and all related structures Neck Neck: Yes full ROM, Yes no lymphadenopathy and Yes supple Resp Effort & Inspection: normal respiratory effort and able to speak in complete sentences Cardio Rate: regular rate Rhythm: regular rhythm Heart sounds: S1 normal heart sound present and S2 normal heart sound present GI Palpation (GI): Soft to palpation, nontender and no masses Auscultation: normal bowel sounds Other: Urostomy bag in right mid quadrant, draining clear yellow urine General: Yes no CVA tenderness Back/Spine/Pelvis Back: no CVA tenderness and No back tenderness Neuro General: patient oriented x3, gait normal, tone normal, moves all extremities, Normal light touch and pain sensation and no focal motor deficits Extrem General: Yes full ROM, Yes no joint enlargement, Yes no pedal edema and Yes normal gait Psych Appearance: grossly normal and well kempt Mental Status: mental status grossly normal Speech and movement: Normal speech and movement present Affect: normal affect Results Reviewed Results Reviewed: Name: Dajuan Lawson Age/Sex: 75/M [facility] 1950 [id number] [id number] Attend Dr: Stephanie Vega MD Re03/13/25 Status: DEP REF Location: [facility] Disch: SPEC : [id number] MARIO: 03/13/25 STATUS: COMP REQ : [id number] RECD: 03/13/[address]: Stephanie Vega MD COMP: 03/13/25 ENTERED: 03/13/[address]: ORDERED: Glu Fasting, AST, ALT, Lipid Panel, Vitamin D 25-OH Test Result Flag Reference FBS 90 60-99 mg/dL AST (GOT) 28 5-37 U/L ALT (GPT) 18 0-40 U/L Triglyceride 164 H <150 mg/dL Desirable Triglyceride: less than 150 mg/dL Borderline High Triglyceride 150-199 mg/dL High Triglyceride: 200-499 mg/dL Very High Triglyceride: greater than or equal to 5OO mg/dL Cholesterol 201 H <200 mg/dL Desirable Cholesterol: less than 200 mg/dL Borderline High Cholesterol: 200-239 mg/dL High Cholesterol: greater than 239 mg/dL LDL Calculated 126 H <100 mg/dL Desirable LDL: less than 100 mg/dL Near Optimal/Above Optimal LDL: 110-129 mg/dL Borderline High LDL: 130-159 mg/dL High LDL: 160-189 mg/dL Very High LDL: greater than or equal to 190 mg/dL HDL 43 >40 mg/dL Desirable HDL: greater than 40 mg/dL Note: This HDL assay may give artificially low results in patients with liver disease. Vitamin D 25-OH 52.8 >30 ng/mL Health Based Reference Values* < 20 ng/mL Deficient 20-30 ng/mL Insufficient > 30 ng/mL Sufficient Laboratory Tests 03/13/25 06:21 Estimat Average Glucose 120 Hemoglobin A1c % 5.8 Coding Level of Care Code Est Pt Prev Care >65y(17795) Diagnoses Annual visit for general adult medical examination with abnormal findings Z00.01 Mixed dyslipidemia E78.2 Impaired fasting glucose R73.01 Stage 3b chronic kidney disease N18.32 Generalized neuropathy G62.9 COPD (chronic obstructive pulmonary disease) J44.9 Obstructive sleep apnea G47.33 Assessment & Plan Assessment & Plan (1) Annual visit for general adult medical examination with abnormal findings: Code(s): Z00.01 - Encounter for general adult medical examination with abnormal findings Plan: He is up to date with his eye exam and all recommended vaccinations, including COVID-19, influenza, RSV, pneumonia, tetanus, and shingles. He is considered up to date with colonoscopy screenings and requires no more. He will have fasting labs done in July or early August 2023, with a follow-up appointment in August to review the results. His next annual physical exam is scheduled for March 2024 (2) Mixed dyslipidemia: Code(s): E78.2 - Mixed hyperlipidemia Category: Medical Plan: Recent labs show an increase in total and LDL cholesterol (197 to 201 mg/dL and 105 to 126 mg/dL respectively), but a significant decrease in triglycerides from 221 to 164 mg/dL. The patient's good cholesterol and vitamin D levels are good. The plan is to continue the current medications, ezetimibe and fenofibrate. He was advised to continue watching his diet, eating in moderation, and choosing healthy snacks like fruits, lean meats, vegetables, and fish. A follow-up visit is scheduled for August to recheck lipids after fasting lab (3) Impaired fasting glucose: Code(s): R73.01 - Impaired fasting glucose Category: Medical (4) Stage 3b chronic kidney disease: Code(s): N18.32 - Chronic kidney disease, stage 3b Category: Medical Plan: The patient has a single functioning kidney following a cystectomy for bladder cancer and is followed by nephrology. It was emphasized that he must maintain good blood pressure control to protect his remaining kidney. The patient was counseled to strictly avoid NSAIDs like Motrin or Advil and to eat organic, less-processed foods as much as possible to not damage the kidney. (5) Generalized neuropathy: Code(s): G62.9 - Polyneuropathy, unspecified Category: Medical Plan: The patient has peripheral neuropathy, which began after his bladder cancer diagnosis and may be related to prior chemotherapy pills. He reports that the gabapentin he takes is effectively controlling his symptoms. (6) COPD (chronic obstructive pulmonary disease): Comment: sees Dr Jenkins Code(s): J44.9 - Chronic obstructive pulmonary disease, unspecified Category: Medical Plan: Continue Symbicort (7) Obstructive sleep apnea: Comment: Followed by Dr. Jenkins, unable to tolerate BiPAP/CPAP Code(s): G47.33 - Obstructive sleep apnea (adult) (pediatric) Category: Medical Plan: Followed by [facility], unable to tolerate CPAP or BiPAP Plan Plan Orders: Orders Alanine Aminotransferase 08/22/25 E78.2 - Mixed hyperlipidemia, R73.01 - Impaired fasting glucose Lipid Panel 08/22/25 E78.2 - Mixed hyperlipidemia, R73.01 - Impaired fasting glucose Aspartate Amino Transferase 08/22/25 E78.2 - Mixed hyperlipidemia, R73.01 - Impaired fasting glucose Vitamin D 25-OH Total 08/22/25 E78.2 - Mixed hyperlipidemia, R73.01 - Impaired fasting glucose Hemoglobin A1c 04/01/25 R73.01 - Impaired fasting glucose
== END 2025-04-01 09:55 | disposition home or self-care (01) ==
LOC: HO.HMCC 07:59
PROVIDERS: PCP Internal Medicine; Visit Provider Internal Medicine
DX: Z00.01 Encounter for general adult medical examination with abnormal findings (principal); N18.32 Chronic kidney disease, stage 3b; J44.9 Chronic obstructive pulmonary disease, unspecified; E78.2 Mixed hyperlipidemia; R73.01 Impaired fasting glucose; G62.9 Polyneuropathy, unspecified; G47.33 Obstructive sleep apnea (adult) (pediatric)

== ENCOUNTER → 2025-04-01 07:59 | Outpatient (BNVA) | payer MEDICARE, SELFPAY | PROVIDERS: PCP Internal Medicine; Visit Provider Internal Medicine | DX: Z00.01 Encounter for general adult medical examination with abnormal findings (principal); E78.2 Mixed hyperlipidemia; E11.22 Type 2 diabetes mellitus with diabetic chronic kidney disease; E11.40 Type 2 diabetes mellitus with diabetic neuropathy, unspecified; I12.9 Hypertensive chronic kidney disease with stage 1 through stage 4 chronic kidney disease, or unspecified chronic kidney disease; N18.32 Chronic kidney disease, stage 3b; J44.9 Chronic obstructive pulmonary disease, unspecified; G47.33 Obstructive sleep apnea (adult) (pediatric) | CPT/HCPCS: 96127; 99397 ==

== ENCOUNTER 2025-04-22 13:03 | Outpatient (AMB) | payer MEDICARE, SELFPAY ==
--- OUTSIDE RECORDS SUMMARY | 2024-07-05 02:30 | XMS_ITS ---
Author Organization [facility] Address [address] [place] [id number] Care Team Providers Care Wood Boatbuilder Name Role Phone Gary DUMAS, Stephanie Primary Care Provider Patrick Castillo Jr REASON FOR VISIT screening Encounters Encounter Location Date Provider Diagnosis [facility] Out[facility] [address] [place] [id number] 07/05/2024 Patrick Lopez Jr Colon cancer screening [...] * CRISTOPHER DIAZDOB:1950 ([age] yo M)Acc No.[id number]:07/05/2024 COLON WITH MAC Patient: CRISTOPHER NAIR Provider: Megha Lopez MD :1950 A ge:74 Y S ex:Male Date:07/05/2024 Address:[address] [id number] Pcp:Stephanie Vega MD Subjective: * Chief Complaints: * S creening Assessment: * Assessment: 1. C olon cancer screening - Z12.11 (Primary) 2 . P ersonal history of adenomatous and serrated colon polyps - Z86.0101 3 . C olon polyps - K63.5 ? Plan: * Procedure Codes: 4 5385 LESION REMOVAL [id number] INTRVL 3+YRS PTS CLNSCP DOCD Billing Information: * Procedure Codes: 71632 LESION REMOVAL COLONOSCOPY. 0529F INTRVL 3+YRS PTS CLNSCP DOCD. * The named appointment provid er may or may not be the originator of this progress note, and it is not deemed complete until electronically signed by the appointment provider. Sign off status: Pending * Provider: Megha Lopez MD Date: 0 07/05/2024 Generated for Toby hogan/Linda/Sebitting on: 1 04:56 PM EST
[2025-04-22 13:17] VITALS: BP 140/76; PULSE 59; TEMP 36.6; O2SAT 96; BMI 33.4
--- NOTE | 2025-04-22 13:17 | MHC.OFFWIV ---
Intake Vital Signs 04/22/25 13:17 Height 5 ft 8.5 in Weight 223 lb BMI 33.4 BP 140/76 H Blood Pressure Location Rt brachial Position Sitting Pulse 59 Pulse Source Pulse Oximeter Temp 97.8 F Temp Source Oral Pulse Oximetry (%) 96 Oxygen Delivery Method Room Air Intake Visit Reasons: EP-cough, dizziness, sore throat, body ache Intake Note: Patient presents c/o nausea, chest congestion, cough, body aches, fatigue x3 weeks. Patient Tobacco Use Status: Never used Tobacco Allergies codeine Allergy (Verified 04/22/25 13:20) Unknown nitrofurantoin (From Macrobid) Allergy (Verified 04/22/25 13:20) Unknown atorvastatin (Lipitor) Adverse Reaction (Unknown, Verified 04/22/25 13:20) muscle pain pravastatin Adverse Reaction (Unknown, Verified 04/22/25 13:20) muscle pain rosuvastatin (Crestor) Adverse Reaction (Unknown, Verified 04/22/25 13:20) muscle pain simvastatin Adverse Reaction (Unknown, Verified 04/22/25 13:20) muscle pain aspirin Adverse Reaction (Verified 04/22/25 13:20) Abdominal Pain ibuprofen Adverse Reaction (Verified 04/22/25 13:20) Abdominal Pain Sulfa (Sulfonamide Antibiotics) Adverse Reaction (Verified 04/22/25 13:20) stomach ache HPI HPI Comments History of Present Illness Details Patient is a 75yo M who presents to the office with cold symptoms He presents with illness x 2-3 weeks Started with sinus congestion Has moved into chest States cough producing mucus for a few weeks Denies current sinus pain or congestion + cough continual with phlegm Some SOB No fever or chills No CP Used OTC cold tablets without relief + decreased appetite x 1 week + nausea intermittent x 1 week. No vomiting, slight dry heaving + fatigue He said he is able to eat/drink but appetite has been decreased Today he was nauseous and dry heaving which causes dizziness x 2 episodes and he fell. Denies HT or LOC. No pain to body No diarrhea PFSH Medical History History of kidney stones Bowel obstruction Pulmonary fibrosis Elevated cholesterol Neuropathy HTN (hypertension) Chronic right shoulder pain Excessive sleepiness Fatigue History of heartburn Hx of bladder cancer Polyneuropathy Stage 3b chronic kidney disease Absent kidney Anemia in chronic kidney disease Obesity (BMI 30.0-34.9) Impaired fasting glucose COPD (chronic obstructive pulmonary disease) Plantar fasciitis Recurrent nephrolithiasis Intolerance to BiPAP/CPAP Obstructive sleep apnea Psoriasis Tubular adenoma of colon Anxiety disorder Statin intolerance Mixed dyslipidemia Surgical History Hx of cataract surgery History of nephrectomy, right Hx of shoulder surgery Hx of elbow surgery History of urostomy History of vagotomy History of hernia repair History of surgery on arm Hx of cholecystectomy Family History Father HTN (hypertension) Diabetes mellitus Dyslipidemia CAD (coronary artery disease) Aneurysm Mother CAD (coronary artery disease) Diabetes mellitus Dyslipidemia HTN (hypertension) COPD (chronic obstructive pulmonary disease) Brother History of heart attack Son No problems noted. Daughter No problems noted. Daughter No problems noted. Social History Housing: House Are you a primary director of health care marketing to a significant other at home: No Do you presently have visiting nurse or other home services: No Alcohol intake: never Patient Tobacco Use Status: Never used Tobacco e-Cigarette/Vaping Use: Never Used Second Hand Smoke Exposure: No service: Yes Current occupational status: retired Current occupation: right hand Cognitive needs: No Hearing needs: No Vision needs: Yes Review of Systems Const Denies chills, Denies fever(s), Denies headache(s) and Reports poor appetite ENT Reports dizziness, Denies otalgia, Denies headache(s), Denies nasal congestion, Denies sinus pain and Denies sore throat Card Denies chest pain, Denies syncope and Reports dyspnea Resp Reports cough, Reports pain with cough and Reports dyspnea GI Denies diarrhea, Reports nausea and Reports vomiting (dry heaving) Reports other (has urostomy bag with normal urine output) Neuro Denies confusion, Reports dizziness, Denies syncope, Denies headache(s) and Denies focal weakness Psych Denies confusion Physical Exam Exam Exam: General: Non-toxic, NAD. Speaking full sentences. Skin: Warm dry throughout Eye: PERRL, EOMI HENT: Airway patent. Uvula midline. No pharyngeal erythema or edema. No PLASTIC AND RECONSTRUCTIVE SURGEON. Mucosa is moist Respiratory: Decreased R base. No wheezes, rales or rhonchi Cardiac: RRR. No murmur Abdominal: BS present. Non-tender throughout. Urostomy bag present RLQ. No palpable masses. Neurology: Alert. No aphasia or facial droop. Gait without abnormality Psych: Good mood and affect Vital Signs: Last Vital Signs Temp 97.8 F 04/22/25 13:17 Pulse 59 04/22/25 13:17 BP 140/76 H 04/22/25 13:17 Pulse Ox 96 04/22/25 13:17 Oxygen Delivery Method Room Air 04/22/25 13:17 BMI result Body Mass Index 33.4 Const General: No confusion Orientation/consciousness: No confusion Neuro General: No confusion Assessment & Plan Assessment & Plan (1) Cough: Code(s): R05.9 - Cough, unspecified Qualifiers: Cough type: acute Qualified Code(s): R05.1 - Acute cough Plan: Patient seen and evaluated. Chest xray: I viewed ? R lower lung linear opacity Discussed my interpretation with with pt and his I will call them if there is a difference in radiology interpretation Discussed zofran for nausea Doxy for PNA PCP follow up Discussed ER s/s such as SOB, CP, fever, syncope, weakness, inability to keep anything down Patient gave verbal understanding and had no additional questions or concerns at time of discharge All questions answered Orders: Orders XR chest 2V Today R05.9 - Cough, unspecified Medications: New doxycycline hyclate 100 mg PO BID 20 caps 0RF ondansetron HCl 4 mg PO Q8H PRN 10 tabs 0RF nausea and vomiting Coding Level of Care Code Est Pt Level 3 (63562) Diagnoses Acute cough R05.1 Cough type: acute
--- OUTSIDE RECORDS SUMMARY | 2025-04-22 16:57 | XMS_ITS | Encounter Summary ---
Author Organization [facility] Address [address] [facility] [address] [place] [address] Phone Care Team Providers Care Sheet Rock Installation Helper Name Role Phone Mahnaz Vega MD Primary Care Provider [phone]- [phone] Reason for Visit * Reason Comments Med Refill Encounter Details Date Type Department Care Team ([facility] st Contact Info) Description 07/20/2020 Refill [facility] [address] [place] [phone] Chavo Ronquillo MD [address] [facility] [address] [place] [address] Social History Tobacco Use Types [...] Office Visit [facility] [address] [phone] Chavo Ronquillo MD [facility] [address] [phone] documented as of this encounter Visit Diagnoses Not on filedocumented in this encounter Care Teams Sheet Rock Installation Helper Relationship Specialty Start Date End Date Mahnaz Vega MD PCP - General 05/04/20 documented as of this encounter
--- OUTSIDE RECORDS SUMMARY | 2025-04-22 16:57 | XMS_ITS | Clinical Summary ---
Author Organization [facility] Address [address] [facility] [address] [place] [address] Phone Care Team Providers Care Network Operations Project Manager Name Role Phone Mahnaz Vega MD Primary Care Provider [phone]- [phone] Allergies Active Allergy Reactions Criticality Noted Date [...] Office Visit [facility] [address] [phone] Chavo Ronquillo MD [address] [phone] Health Maintenance Due Date Last Done Comments [...] patient's age to complete [place] [id number] [facility] Care Teams Network Operations Project Manager Relationship Specialty Start Date End Date Mahnaz Vega MD PCP - General 05/04/20
--- OUTSIDE RECORDS SUMMARY | 2025-04-22 16:57 | XMS_ITS | Patient Health Record ---
Author Organization [facility] Address [address] [place] [address] Care Team Providers Care Territory Outside Sales Manager Name Role Phone Gary DUMAS, Stephanie Primary Care Provider Patrick Castillo Jr Unavailable [phone] Allergies Allergen (clinical drug ingredient) Drug/Non Drug [...] Pathology Reviewed date:07/09/2024 02:36:13 PM Interpretation: Performing Lab:[facility], [address] [place] [id number] Notes/Report: Reason For Referral No Information Medications [...] Status Risk Notes Problem Colon cancer screening (343002497) Colon cancer screening (Z12.11) Active confirmed Problem Pre-procedure evaluation check (448210894) Encounter for other preprocedural examination (Z01.818) Active confirmed Problem Long-term current use of drug therapy (601653604) Long-term current use of high risk medication other than anticoagulant (Z79.899) Active confirmed Problem History of polyp of colon (situation) (355445492) Personal history of colonic polyps (Z86.0100) Active confirmed Encounters Encounter Location Date Provider Diagnosis [facility] Outpatient [address] [place], [place] [id number] 07/05/2024 Patrick Lopez Jr Colon cancer screening Z12.11 ; Personal history of adenomatous and serrated colon polyps Z86.0101 and Colon polyps K63.5 [facility] [address] [place] [address] 07/09/2024 Patrick Lopez Jr Assessments Encounter Date [...] Insured Coverage Start Date Coverage End Date [employer] [address] [place] [phone] [id number] CRISTOPHER DIAZ Self - patient is the [...]
--- OUTSIDE RECORDS SUMMARY | 2025-04-22 16:57 | XMS_ITS | Clinical Summary ---
[facility] Organization [facility] Address [address] [place] [address] Care Team Providers Care Personal Loan Specialist Name Role Phone Unavailable Primary Care Provider [...]
== END 2025-04-22 14:18 | disposition home or self-care (01) ==
PROVIDERS: PCP Internal Medicine; Visit Provider Physician Assistant
DX: R05.1 Acute cough (principal)

== ENCOUNTER 2025-04-22 13:03 | Outpatient (REF) | payer MEDICARE, SELFPAY ==
--- NOTE | ~2025-04-22 | XR_ITS ---
EXAMINATION: XR CHEST CLINICAL INFORMATION: R05.9 - Cough, unspecified COMPARISON: 09/29/2020. TECHNIQUE: 2 views of the chest were obtained. FINDINGS: The cardiac, hilar, and mediastinal contours are normal. Mild aortic mural calcification. The lungs are clear bilaterally. There is no pneumothorax or pleural effusion. There is no focal osseous or soft tissue abnormality. There are spinal degenerative changes. Numerous surgical clips present in the subhepatic region. XR/XR chest 2V IMPRESSION: No active pulmonary disease. Electronically signed by: Johan Owen MD 04/22/2025 01:52 PM EST
== END 2025-04-22 13:04 ==
LOC: HO.HMGCX 13:03
PROVIDERS: PCP Internal Medicine; Visit Provider Physician Assistant
DX: R05.1 Acute cough (principal); R11.0 Nausea
CPT/HCPCS: 71046; 99212

== ENCOUNTER → 2025-04-22 13:41 | Outpatient (BNV) | payer MEDICARE, SELFPAY | PROVIDERS: PCP Internal Medicine; Visit Provider Radiology Diagnostic Radiology | DX: R05.9 Cough, unspecified (principal) | CPT/HCPCS: 71046 ==